=== PATIENT | male | born 1945 | race Caucasian/White ===

== ENCOUNTER → 2016-08-24 | Outpatient (REF) | payer OTHER ==
[2016-08-24 16:00] LABS: MEAN CORPUSCULAR HEMOGLOBIN 32.8 pg (27.0-33.0); MEAN CORPUSCULAR HGB CONC 34.3 g/dl (32.0-36.5); MEAN CORPUSCULAR VOLUME 95.8 fl (80.0-96.0); RED CELL DISTRIBUTION WIDTH 11.7 % (11.5-14.5); WHITE BLOOD COUNT 8.7 K/mm3 (4.0-10.0)
[2016-08-25 09:51] LABS: BLOOD UREA NITROGEN 26 MG/DL (7-18); CREATININE FOR GFR 0.95 MG/DL (0.70-1.30); GLOMERULAR FILTRATION RATE > 60.0 (>49)
== END ==
LOC: M LABDRAW1 15:25
PROVIDERS: ATTEND Physician Assistant
DX: M43.16 Spondylolisthesis, lumbar region (principal)

== ENCOUNTER → 2016-08-25 | Outpatient (CLI) | payer MEDICARE, BC, OTHER ==
--- NOTE | 2016-08-25 20:10 | REPUSA ---
CLINICAL HISTORY: Stenosis versus abscess. TECHNIQUE: MRI of the lumbar spine was performed utilizing multiple sequences in axial and sagittal planes without and with IV contrast material. COMMENTS: There is multilevel dehydration and disc desiccation is seen. At L5-S1, moderate loss of disc space height present. Grade 1 anterolisthesis L5 over S1 measures 6 mm this is due to bilateral spondylolysis. The marrow signals are within normal limits. The normal lordotic curvature of the lumbar spine is well maintain ed. The conus medullaris and cauda equina are within normal limits. Evaluation of individual levels presents the following: At L5-S1, diffuse bulge is seen. There is moderate to severe bilateral foraminal stenosis. Canal is patent. Hypertrophic facet disease contributes. At L4-L5, central herniated disc measures 15 x 3 mm indents the ventral thecal sac with superimposed bulge. Both foramina are mildly narrowed. Canal is patent. Hypertrophic facet disease is seen. At L3-L4, there is no disc herniation or bulge present. Canal and foramina are patent. Hypertrophic facet disease is seen. At L2-L3, central herniated disc measures 5 x 1.5 mm indents the ventral thecal sac. Canal and abelardo haley are patent. L1-L2 level is unremarkable. Post gadolinium sequences demonstrate no evidence of normal enhancement. IMPRESSION: 1. Grade 1 anterolisthesis of L5 over S1 due to bilateral spondylolysis. 2. At L5-S1, diffuse bulge is seen. There is moderate to severe bilateral foraminal stenosis. Hiral l is patent. Hypertrophic facet disease contributes. 3. At L4-L5, central herniated disc measures 15 x 3 mm indents the ventral thecal sac with superimpo sed bulge. Both foramina are mildly narrowed. Canal is patent. Hypertrophic facet disease is seen. 4. At L2-L3, central herniated disc measures 5 x 1.5 mm indents the ventral thecal sac. Canal and f oramina are patent. 5. No evidence of an abscess. Thank you for your kind referral of this patient. We appreciate the opportunity to participate in th is patient's care.
== END ==
LOC: M RAD 17:38
PROVIDERS: ATTEND Physician Assistant
DX: M43.16 Spondylolisthesis, lumbar region (principal); M51.26 Other intervertebral disc displacement, lumbar region
CPT/HCPCS: 72158; A9576

== ENCOUNTER → 2016-09-25 | Outpatient (CLI) | payer MEDICARE, BC, OTHER ==
[~2016-09-25] MED LIST: ATOR40TA PO; ENAL5TAB PO; FENO54TA2 PO; OMEP20CA3 PO; SERT50TA PO
[2016-09-25 11:11] LABS: INR 1.04
[2016-09-25 11:17] LABS: ANION GAP 10 MEQ/L (8-16); BLOOD UREA NITROGEN 23 MG/DL (7-18); CALCIUM LEVEL 9.2 MG/DL (8.8-10.2); CARBON DIOXIDE LEVEL 28 MEQ/L (21-32); CHLORIDE LEVEL 103 MEQ/L (98-107); CREATININE FOR GFR 0.96 MG/DL (0.70-1.30); GLOMERULAR FILTRATION RATE > 60.0 (>49); GLUCOSE, FASTING 122 MG/DL (80-110); POTASSIUM SERUM 4.1 MEQ/L (3.5-5.1); SODIUM LEVEL 141 MEQ/L (136-145)
--- NOTE | 2016-09-25 11:23 | REP ---
Chest two views HISTORY: Preop Comparison: None The lungs are clear. The heart is normal in size. The pulmonary vasculature is normal in appearance. The bony structure is intact. IMPRESSION: No acute disease. Signed by Kash Cordova MD 09/25/2016 11:14 A
--- NOTE | 2016-09-25 18:52 | ECGEPIP ---
Stationary ECG Study [facility] Test Date: 2016-09-25 Pat Name: ELIU TESFAYE Department: Room: - Gender: M Paediatric Surgeon: TORRES : 1945 Requested By: Meño Meadows Order Number: [id number] Reading MD: Sergio Vila Measurements Intervals [place] Rate: 96 P: 9 NE: 149 QRS: -39 QRSD: 86 T: 55 QT: 353 QTc: 448 Interpretive Statements SINUS RHYTHM Left axis deviation Nonspecific T wave abnormality Comparison tracing not on file Electronically Signed On 09-25-2016 18:52:25 EST by Sergio Vila
== END ==
LOC: M ADMPAT 09:42
PROVIDERS: ATTEND Orthopaedic Surgery
DX: Z01.818 Encounter for other preprocedural examination (principal); M43.16 Spondylolisthesis, lumbar region

== ENCOUNTER 2016-10-03 07:35 | Inpatient (IN) | payer MEDICARE, BC, OTHER ==
--- NOTE | 2016-09-27 11:29 | CR ---
DATE OF CONSULTATION: 09/27/2016 PREOPERATIVE EVALUATION AND CONSULTATION CONSULTING PHYSICIAN: Alverto Birmingham MD SURGEON: Meño Reza MD, [facility] PROCEDURE: Lumbar spinal fusion. SITE OF SURGERY: [facility] PROPOSED DATE OF SURGERY: 10/03/2016 CHIEF COMPLAINT: Right-sided low back and leg pain. HISTORY OF PRESENT ILLNESS: A 71-year-old patient of mine who presents today with approximately 1 year of increasing right back and lower extremity pain. The patient has tried a number of modalities, which have not been effective. These included physical therapy exercises, cortisone injections. The patient is now planning for a lumbar spinal fusion. He has had two MRIs of the area, which reportedly show spondylolisthesis at L5-S1. Regarding the patient's perioperative risks, the patient generally does well without any chest pain. He has exerted himself in the past without issues; however, recently, has been limited by his right back and lower extremity pain. He has not had any respiratory concerns. Had a very short and distant smoking history. Has had no lung problems, no asthma, no issues with anesthesia in the past, and his is present. Denies any apneic spells or other problems or issues. He has been compliant with his medication, and his overall health has been good with each of his medical issues controlled. These include hyperlipidemia for which he is on medication, dysthymia well treated with sertraline, hypertension treated with Vasotec, and omeprazole which has suppressed his gastroesophageal reflux disease (GERD). He does take Metrogel and ketoconazole for some rosacea and seborrheic dermatitis, respectively. He also occasionally used Viagra for erectile dysfunction (ED). He has moderated his alcohol use to generally one every night or every other night at this point. Again, it is notable he had a percutaneous transluminal coronary angioplasty (PTCA) two-vessel in 1998. Had followed at [facility] but followed with cardiology and has had no recent issues since then and normal stress test since then. PAST MEDICAL HISTORY: 1. Hyperlipidemia. 2. Hypertension. 3. GERD. 4. Coronary artery disease (CAD) with two-vessel PTCA in 1998. Had followed with cardiology for a number of years without issues or concerns. 5. Chronic low back pain. 6. Dysthymia/anxiety. 7. Rosacea. 8. Seborrheic dermatitis. 9. Aortic sclerosis on prior echocardiogram. 10. ED. PAST SURGICAL HISTORY: 1. Bilateral inguinal hernias. 2. Cataract removal right eye in March 2008. 3. 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 4. Colonoscopy in 2007. ALLERGIES: METOPROLOL caused bradycardia and some dizziness. PENICILLIN caused a mild case of hives. CIPROFLOXACIN caused a mild case of hives. MEDICATION: - aspirin 81 mg by mouth daily (held 1 week prior to surgery) - ketoconazole 2% topically to areas of seborrheic dermatitis of the face - Viagra 100 mg taken about 30 minutes prior to intercourse (will hold prior to surgery) - Lipitor 40 mg daily - Metrogel 1% to affected areas of rosacea twice a day - omeprazole 20 mg daily - Vasotec 5 mg daily - fenofibrate 54 mg by mouth daily (The patient will hold all medications the day of surgery and Vasotec the day prior to surgery, as well.) FAMILY HISTORY: Father of a drowning at a young age. Mother of renal failure and hypertension. SOCIAL HISTORY: The patient lives with his in [place], and he retired from the [employer]. He has two children, Jose R, who works in the emergency department as a social media project manager and daughter, Andra, who lives on [address]. He previously drank a significant amount each evening. However, now, has generally one alcoholic beverage each night. He is a former smoker; quit in 1969 after smoking about seven cigarettes a day since a teenager. REVIEW OF SYSTEMS: As per history of present illness (HPI). Otherwise, ten system review is completely negative. PHYSICAL EXAMINATION: VITAL SIGNS: Blood pressure 130/78, pulse of 82, respiratory rate of 16, weight of 185 pounds, body mass index (BMI) of 31.8. In general, the patient appears well. No acute distress. Nontoxic. Alert and oriented times three. His is here today for the preoperative visit. He is somewhat uncomfortable, staying off his right hip. HEENT: Notes pupils equal, round, and reactive to light and accommodation. Extraocular motions intact. No lesions of lid or conjunctivae. Oral cavity and oropharynx are completely benign. Tympanic membranes are benign bilaterally. NECK: Is supple. No lymphadenopathy or thyromegaly. HEART: Regular rate and rhythm. S1, S2. No murmurs today are appreciated (2/6 systolic murmur appreciated in the past, found to be aortic sclerosis). LUNGS: Clear to auscultation bilaterally. No rales, rhonchi, or wheezes. ABDOMEN: Is soft, nontender, nondistended. Slightly protuberant. EXTREMITIES: No clubbing, cyanosis, or edema. However, he does have some focal changes in his right toe with discomfort and swelling. No sign of infection. NEUROLOGICAL EXAMINATION: Is nonfocal with the exception of his significant lumbar radiculopathy and pain. PREOPERATIVE EVALUATION: Included: A chest x-ray with no acute disease. An electrocardiogram (EKG), which showed normal sinus rhythm with some left axis deviation, nonspecific T wave abnormalities, but otherwise no change from 04/13/2015 EKG, per report. 2015 echocardiogram showed a normal ejection fraction (EF) and some moderate aortic valve sclerosis. LABORATORIES: Completed at [facility] show: Normal hemoglobin 14.8. Normal PT/INR. Normal BMP. ASSESSMENT AND PLAN: 1. Preoperative evaluation and consultation. At this point in time, although the patient had a distant history of coronary disease, his EKG has not changed, and he has no cardiac symptoms whatsoever. He will be holding his aspirin for surgery. He will be monitored closely. Although I do not believe there is significant cardiac issues present based on the information available, I suspect that he will be monitored closely. He has had no pulmonary or anesthesia issues in the past; and per history, he does not have a significant risk for obstructive sleep apnea (IBAN). He appears optimized for surgical intervention. If he has any new symptoms, questions, or concerns prior to surgery, he will be sure to let me know. 2. Right-sided lumbar radiculopathy. The patient looks forward to surgery. He has attempted a number of conservative measures but will need surgical intervention to improve his symptoms of pain and inability to function. 3. Hyperlipidemia. Good control on present medication. Will continue perioperatively. 4. Hypertension. Has been well controlled on present medication. Will need to be continued and monitored. 5. Gastroesophageal reflux disease. Has done well on omeprazole daily. Will continue. 6. Coronary artery disease. Again, has been controlled for a number of years without new issues or concerns but again I expect will be monitored closely perioperatively. 7. Anxiety. Good results on Zoloft. Will continue. 8. Rosacea. Treated with Metrogel with good results. 9. Seborrheic dermatitis. Good results on ketoconazole cream. 10. Erectile dysfunction. The patient is using Viagra as needed with good results and not having any chest pain or other concerns. 11. History of aortic sclerosis. No other abnormalities on echocardiogram. 12. Ongoing care. Again, the patient is optimized for surgical intervention. He will let me know if he has any new symptoms or concerns prior to surgery, but otherwise, I wish him well for his surgery; and if I can be of any other assistance, please let me know. I will otherwise see him for his scheduled followup. SARA
--- NOTE | 2016-09-28 13:53 | HPE ---
DATE OF ADMISSION: 10/03/2016 CHIEF COMPLAINT: Back pain, pain down his right leg. ATTENDING PHYSICIAN: Dr. Reza. HISTORY: This is a pleasant 71-year-old male patient with progressively worsening back pain and pain down his right leg. He has failed to improve with conservative management to include gabapentin, anti-inflammatories, pain medications, physical therapy, and epidural steroid injections. He continues have symptoms with activities of daily living. He has elected for surgery for his continued symptoms. He has consented for a right unilateral laminectomy L4, L5, S1, as well as a bilateral posterior fusion with pedicle screws and iliac crest spanning L4, L5 and S1. Medical optimization pending. MRI of his lumbar spine notable for degenerative disc with a pars defect at L5-S1 bilaterally. There is also a degenerative disc at L4-5, mildly stenotic at 4-5 and severe foraminal stenosis mainly to the right at L5-S1 and moderate to the left at L5-S1. X-rays of his lumbar spine were notable for a non dynamic listhesis at L5-S1. There are degenerative changes throughout the lumbar spine, most significantly at L4-5 and L5-S1. ALLERGIES: - PENICILLIN - CIPRO (both of which cause him hives) It should be noted he has taken cephalexin before without difficulties. CURRENT MEDICATIONS (include): - Percocet as needed (p.r.n.) for pain - atorvastatin 40 mg 1 tablet once per day - Prilosec 20 mg 1 tablet once day - Sertraline 50 mg 1 tablet once per day - Fenofibrate 54 mg 1 tablet once per day - enalapril 5 mg 1 tablet once per day - intermittent regular Tylenol as well He has been counseled not to take NSAIDs or aspirin 5 days prior to surgery. MEDICAL HISTORY (includes): 1. Hypertension. 2. Elevated cholesterol. 3. Spondylolisthesis of the lumbar spine, lumbar degenerative disc disease, lumbar spinal stenosis, and pain radiating down to his right lower extremity. PAST SURGICAL HISTORY: Hernia repair. Otherwise unremarkable. FAMILY HISTORY: Noncontributory. SOCIAL HISTORY: He does not smoke. He occasionally consumes alcohol. REVIEW OF SYSTEMS: Denies fever or chills. Denies chest pain, shortness breath or cough. Denies difficulty breathing. Denies abdominal pain. Denies nausea or vomiting. Denies chest pain, shortness breath or cough. Denies recent upper respiratory infection (URI) or urinary tract infection (UTI) symptoms. He has persistent back pain and pain down his right leg. Denies abdominal pain. Denies nausea or vomiting. PHYSICAL EXAMINATION: Today, reveals a well-nourished, well-developed, alert male patient. He walks with a limping gait and favors his right side. He does use a cane for ambulation. Straight leg raise testing is irritable on the right, negative on the left. There are no step-offs in the lumbar spine. There is decreased light touch on the right lower extremity, mainly around the great toe. The skin is intact around the back. No erythema, edema or ecchymosis. Deep tendon reflexes are absent at the right ankle, trace at the left ankle, and 1 at both knees. Neck is supple without adenopathy or jugular venous distention (JVD). Lungs are clear to auscultation, without rales or wheeze. Heart regular rate and rhythm. Abdomen: Bowel sounds are present. Current Vital Signs: Weight 184 pounds, height 5 feet 4 inches, temperature 99.5, blood pressure 134/78, pulse 80, and respirations 16. IMPRESSION: 1. Symptomatic lumbar degenerative disc disease, lateral foraminal stenosis and spondylolisthesis at L5-S1 with degenerative changes at L4, L5 and S1, as well as, pain radiating to his right lower extremity. PLAN: He is consented for a right unilateral laminectomy spanning L4, L5 and S1, as well as, bilateral posterior fusion with pedicle screws and iliac crest L4, L5 and S1. It also should be noted that his laboratory data is with hemoglobin 14.8. PT is 13.7, INR 1.02, glucose 122, BUN 23, creatinine 0.96, sodium 141, and potassium 4.1. His nasal culture was positive for Staphylococcus aureus, he was treated per the protocol. No need to change the antibiotic as the Staph aureus is susceptible to cephalosporins
[~2016-10-03] VITALS: Ht 165.1 cm; Wt 84.8 kg
[~2016-10-03 07:35] MED LIST changes: +**UNRESOLVED NON-FORMULARY MED ORDER XX SCH
[2016-10-03] MEDS ORDERED: D5W/LR 1,000 ML IV SCH (07:45)
[2016-10-03] MEDS ORDERED: GABAPENTIN 300 MG CAP PO ONE (08:00)
[2016-10-03] MEDS ORDERED: LR 1,000 ML IV SCH ×2 (08:00→17:30)
[2016-10-03] MEDS ORDERED: PERCOCET 5MG/325MG TAB PO ONE (08:00)
[2016-10-03] MEDS ORDERED: MIDAZOLAM INJ 2 MG/2 ML VIAL (J2250) As Ordered ONE (09:02)
[2016-10-03] MEDS ORDERED: fentaNYL 250 MCG/5 ML INJECTION (J3010) As Ordered ONE (09:03)
[2016-10-03] MEDS ORDERED: LIDOCAINE 2% INJ 100 MG/5 ML SDV (FOR ANES.) As Ordered ONE (09:04)
[2016-10-03] MEDS ORDERED: PROPOFOL 200 MG/20 ML VIAL As Ordered ONE ×2 (09:05→09:06)
[2016-10-03] MEDS ORDERED: ROCURONIUM BROMIDE 50 MG/5 ML VIAL As Ordered ONE (09:07)
[2016-10-03] MEDS ORDERED: VANCOMYCIN HCL 500 MG/10 ML VIAL (J3370) As Ordered ONE (09:43)
[2016-10-03] MEDS ORDERED: BUPIVACAINE/EPIN 0.25% 30 ML VIAL As Ordered ONE (09:43)
[2016-10-03] MEDS ORDERED: THROMBIN SOLN 20,000 UNITS KIT As Ordered ONE (09:43)
[2016-10-03] MEDS ORDERED: BACITRACIN PWD 50,000 UNITS VIAL As Ordered ONE (09:44)
[2016-10-03] MEDS ORDERED: VANCOMYCIN 1000 MG/20 ML VIAL (J3370) As Ordered ONE (11:13)
[2016-10-03] MEDS ORDERED: VANCOMYCIN HCL 1,000 MG, VIAL MATE ADAPTER 1 EACH in D5W 250 ML IV ONE (11:30)
[2016-10-03] MEDS ORDERED: diphenhydrAMINE INJ 50MG/ML VIAL (J1200) As Ordered ONE (12:00)
[2016-10-03] MEDS ORDERED: METOCLOPRAMIDE INJ 10MG/2ML VIAL (J2765) As Ordered ONE (12:02)
[2016-10-03] MEDS ORDERED: dexameTHASONE 4 MG/ML 1ML VIAL (J1100) As Ordered ONE (12:02)
[2016-10-03] MEDS ORDERED: ePHEDrine SULFATE 25 MG/5 ML(5MG/ML) SYRINGE As Ordered ONE (12:11)
[2016-10-03] MEDS ORDERED: HYDROmorphone HCL 2 MG/ML 1ML VIAL (J1170) As Ordered ONE (13:34)
[2016-10-03] MEDS ORDERED: PHENYLephrine HCL 500 MCG/5 ML (100MCG/ML) SYRINGE (J2370) As Ordered ONE (13:44)
[2016-10-03] MEDS ORDERED: GLYCOPYRROLATE INJ 0.2 MG/ML 2 ML VIAL As Ordered ONE (14:27)
[2016-10-03] MEDS ORDERED: NEOSTIGMINE 1MG/ML 5 ML SYRINGE (J2710) As Ordered ONE (14:29)
[2016-10-03] MEDS ORDERED: ONDANSETRON 4MG/2ML VIAL (J2405) As Ordered ONE (14:29)
[2016-10-03] MEDS ORDERED: tiZANidine 4 MG TAB PO PRN (17:00)
[2016-10-03] MEDS ORDERED: PERCOCET 5MG/325MG TAB PO PRN (17:00)
[2016-10-03] MEDS: PERCOCET 5MG/325MG TAB PO PRN ×3 (17:08→20:36)
[2016-10-03] MEDS ORDERED: METOCLOPRAMIDE INJ 10MG/2ML VIAL (J2765) IV PRN (17:30)
[2016-10-03] MEDS ORDERED: fentaNYL 100 MCG/2 ML INJECTION (J3010) IV PRN (17:30)
[2016-10-03] MEDS ORDERED: ONDANSETRON 4MG/2ML VIAL (J2405) IV PRN (17:30)
[2016-10-03] MEDS: MORPHINE 2 MG/ML 1ML SYRINGE IV PRN ×2 (17:33→17:46)
--- NOTE | 2016-10-03 17:38 | REP ---
Partial lumbar spine series: Four views: History: Intraoperative films. Lumbar spondylolisthesis. 2 minutes 4 seconds of fluoroscopy time is reported. Findings: Two last minute hold fluoroscopic spot films and two portable cross-table lateral radiographs are presented. The portable radiographs are time stamped 12:46 and 12:57 p.m. The 12:46 p.m. film shows an intraoperative probe at the dorsal aspect of the spinal canal at the level of the L3-4 disc. The 12:57 p.m. probe demonstrates an intraoperative probe at the dorsal aspect of the canal at the L5-S1 and another at the dorsal aspect of the canal at L4-5. The fluoroscopic last minute hold spot radiographs document transpedicular screw placement bilaterally at L4, L5, and S1 with interconnecting fusion rods. A grade 1 L5-S1 spondylolisthesis is seen. Signed by Amrit Crockett MD 10/04/2016 12:23 P
[2016-10-03] MEDS ORDERED: HYDROmorphone HCL 1 MG/ML SYRINGE (J1170) IV PRN ×2 (18:00)
[2016-10-03 18:15] VITALS: BP 132/80
[2016-10-03 18:45] VITALS: BP 128/77
[2016-10-03] MEDS: LR 1,000 ML IV SCH (19:00)
[2016-10-03 19:45] VITALS: BP 125/80
--- NOTE | 2016-10-03 20:24 | IPN ---
DATE: 10/03/2016 REASON FOR CONSULTATION: Medical management and consult for Dr. Reza. SUBJECTIVE: The patient tells me he is feeling great. He has no complaints. He is not in any significant pain. He tells me that everything has been explained to him well. Eh denies chest pain, shortness of breath, palpitations, lightheadedness, or dizziness. OBJECTIVE: VITAL SIGNS: Temperature 99.1, pulse 109, respiratory rate 18, blood pressure (BP) 128/77, oxygen saturation 95% on 2 liters. GENERAL: He is a very pleasant, obese male, lying in bed at a 30-degree angle watching television in no distress. He is accompanied by his . HEENT: He is wearing glasses. He has moist mucous membranes. Cranial nerves II-XII are grossly intact. No elevation in central venous pressure (CVP). CARDIOVASCULAR: S1, S2. He is not tachycardic on my exam. RESPIRATORY: Clear. ABDOMEN: Obese. EXTREMITIES: No clubbing, cyanosis, or edema. No laboratory studies. ASSESSMENT AND PLAN: This is a 71-year-old man status post lumbar surgery with Dr. Reza. 1. Lumbar surgery. As per Dr. Reza. Deep vein thrombosis (DVT), physical therapy (PT), and pain control all as per orthopedics. 2. Hypertension. The patient is continued on his Vasotec with holding parameters. 3. Dyslipidemia. He is on Lipitor and fenofibrate. 4. Rosacea. He is on Metrogel as needed. 5. Gastroesophageal reflux disease (GERD). He is on omeprazole. 6. Depression. He is on Zoloft. 7. Coronary artery disease. The patient is on aspirin, statin, curiously no beta adalberto. Will defer to his outpatient providers. We will continue to follow along with this patient with you. Please call with any specific questions. Thank you for involving us in this care. His home medications have already been ordered and continued by the primary service.
[2016-10-03] MEDS: ASCORBIC ACID 500 MG TAB PO SCH (20:35)
[2016-10-03] MEDS: ENALAPRIL MALEATE 5 MG TAB PO SCH (20:35)
[2016-10-03] MEDS: DOCUSATE SODIUM 100 MG CAP PO SCH (20:35)
[2016-10-03] MEDS: GABAPENTIN 400 MG CAP PO SCH (20:35)
[2016-10-03 20:45] VITALS: BP 132/68
[2016-10-03 21:45] VITALS: BP 128/65
[2016-10-03 22:45] VITALS: BP 126/68
[2016-10-03] MEDS: VANCOMYCIN HCL 1,000 MG, VIAL MATE ADAPTER 1 EACH in D5W 250 ML IV SCH (23:24)
[2016-10-04 02:45] VITALS: BP 130/65
[2016-10-04] MEDS: PERCOCET 5MG/325MG TAB PO PRN ×4 (04:43→20:08)
[2016-10-04 06:00] VITALS: BP 128/76
[2016-10-04] MEDS ORDERED: FENOFIBRATE 54 MG PO SCH (09:00)
[2016-10-04] MEDS: ASPIRIN 81 MG CHEW TABLET PO SCH (09:38)
[2016-10-04] MEDS: ASCORBIC ACID 500 MG TAB PO SCH ×2 (09:38→20:06)
[2016-10-04] MEDS: DOCUSATE SODIUM 100 MG CAP PO SCH ×2 (09:38→20:08)
[2016-10-04] MEDS: ATORVASTATIN 20 MG TAB PO SCH (09:38)
[2016-10-04] MEDS: GABAPENTIN 400 MG CAP PO SCH ×2 (09:38→20:07)
[2016-10-04] MEDS: ENALAPRIL MALEATE 5 MG TAB PO SCH ×2 (09:38→20:07)
[2016-10-04] MEDS: OMEPRAZOLE 20 MG CAP PO SCH (09:39)
[2016-10-04] MEDS: SERTRALINE HCL 50 MG TAB PO SCH (09:39)
[2016-10-04] MEDS: LR 1,000 ML IV SCH ×2 (09:51→23:26)
[2016-10-04 10:00] VITALS: BP 126/65
[2016-10-04] MEDS ORDERED: MAG SULF 1GM/100ML (MAG RUN) 1 GM in APPROPRIATE DILUENT 1 EA IV ONE (11:30)
[2016-10-04] MEDS: VANCOMYCIN HCL 1,000 MG, VIAL MATE ADAPTER 1 EACH in D5W 250 ML IV SCH (12:26)
[2016-10-04 12:42] LABS: MEAN CORPUSCULAR HEMOGLOBIN 32.9 pg (27.0-33.0); MEAN CORPUSCULAR VOLUME 96.6 fl (80.0-96.0); RED CELL DISTRIBUTION WIDTH 12.8 % (11.5-14.5); WHITE BLOOD COUNT 7.5 K/mm3 (4.0-10.0)
[2016-10-04 12:43] LABS: ANION GAP 11 MEQ/L (8-16); BLOOD UREA NITROGEN 15 MG/DL (7-18); CALCIUM LEVEL 7.9 MG/DL (8.8-10.2); CARBON DIOXIDE LEVEL 28 MEQ/L (21-32); CHLORIDE LEVEL 101 MEQ/L (98-107); CREATININE FOR GFR 0.97 MG/DL (0.70-1.30); GLOMERULAR FILTRATION RATE > 60.0 (>49); GLUCOSE, FASTING 134 MG/DL (80-110); POTASSIUM SERUM 3.7 MEQ/L (3.5-5.1); SODIUM LEVEL 140 MEQ/L (136-145)
--- NOTE | 2016-10-04 13:01 | REP ---
Lumbar spine series: Three views. Comparison radiographs are from August 31, 2005. History: Reevaluate hardware. Status post laminectomy and fusion October 03, 2016. Comparison with intraoperative films from 10/03/2016. Findings: Transpedicular screws are seen bilaterally at L4, L5, and S1 with interconnecting rods. Alignment is unchanged. Signed by Amrit Crockett MD 10/10/2016 01:10 P
--- NOTE | 2016-10-04 13:10 | IPNPDOC ---
Text Note Date of Service The patient was seen on 10/04/16. NOTE Subjective: Patient states he feels well. Has been ambulating today. Objective: Vitals: (see below) General: No acute distress, laying comfortably in bed. HEENT: Moist mucous membranes. Neck: No JVD or lymphadenopathy Cardiac: RRR, No murmurs Pulm: Diminished breath sounds at the bases bilaterally. No wheezing, rhonchi Abd: NT/ND + BS Ext: No edema or cyanosis. Distal pulses intact. Back- incision site clean and dry. No bleeding or significant swelling noted. Labs (see below) Images: Assessment/Plan 1. Postop day #1 status post laminectomy, management per orthopedics 2. Hypertension- controlled continue Vasotec 3. Hyperlipidemia- continue statin 4. Rosacea- on MetroGel as needed 5. GERD- on PPI 6. History of CAD- on aspirin and statin. Will need close follow-up with his primary care physician, and the cardiology referral outpatient. Will need to have beta adalberto and addressed outpatient. 7. Hypomagnesemia- replaced DVT prophy: Per orthopedics VS,Justin, I+O VS, Justin, I+O Laboratory Tests 10/04/16 06:21 10/04/16 11:50 Calcium Level 7.9 L, Red Blood Count 3.25 L, Mean Corpuscular Volume 96.6 H, Mean Corpuscular Hemoglobin 32.9, Mean Corpuscular Hemoglobin Concent 34.0, Red Cell Distribution Width 12.8 Vital Signs Date Time Temp Pulse Resp B/P Pulse Ox O2 Delivery O2 Flow Rate FiO2 10/04/16 10:16 18 10/04/16 09:38 128/76 10/04/16 08:00 Room Air 10/04/16 06:00 96.7 91 96 2.0 I&O- Last 24 Hours up to 6 AM 10/04/16 06:00 Intake Total 3655 ml Output Total 1000 ml Balance 2655 ml FRANCE BLANCAS MD Oct 04, 2016 13:10
[2016-10-04 14:00] VITALS: BP 114/63
[2016-10-04 22:00] VITALS: BP 106/62
[2016-10-05] MEDS: PERCOCET 5MG/325MG TAB PO PRN ×3 (01:50→14:38)
[2016-10-05 06:00] VITALS: BP 106/56
--- NOTE | 2016-10-05 06:56 | RO ---
DATE OF PROCEDURE: 10/03/2016 PREOPERATIVE DIAGNOSIS: Right lower extremity neurogenic claudication, spondylolisthesis L5-S1 and lumbar spondylosis L4-5 and L5-S1. POSTOPERATIVE DIAGNOSIS: Right lower extremity neurogenic claudication, spondylolisthesis L5-S1 and lumbar spondylosis L4-5 and L5-S1. PROCEDURE: Right unilateral laminectomy L4-5, S1 with posterior fusion L4-5 and posterior fusion L5-S1, posterior segmental instrumentation L4-5, S1, harvest and placement of right iliac crest morselized autograft for spine surgery, harvesting placement of local autograft for spine surgery, use of morselized allograft for spine surgery. SURGEON: Meño Reza MD OVERLAY OPERATOR: REYNALDO Burris ANESTHESIA: General. Estimated blood loss was 350 mL, replaced with crystalloid. No complications. Components used include the K2M [place] pedicle screw system and 10 mL of demineralized bone matrix putty and 15 mL cancellous allograft croutons. INDICATIONS: Intractable discomfort radiating down the right lower extremity, spondylolisthesis L5-S1, spondylosis L4-5 and L5-S1, left recess stenosis at L4- 5 and foraminal stenosis at L5-S1. Consent reviewed in detail with the patient, including aakash discussion of the procedure proposed, alternatives including doing nothing, more physical therapy, risks including not limited to pain, failure, infection, need for more surgery, bleeding blood loss, nerve injury, infection or some other problem. The patient agreed to proceed with surgery. OPERATIVE COURSE: Identified in the holding area. Site side verified. Brought to the operating room. General endotracheal anesthesia was administered and he was positioned on the Bear frame in the usual fashion for exposure of the lumbar spine in the prone position. The incision is a posterior incision and it is based on bony landmarks, the iliac crest which was marked. He was sterilely prepped and draped in usual fashion and once I and the mechanical applications engineer were comfortable with the patient's positioning we began the operative procedure. Next, I stood initially on the patient's right side but Mr. Hartley and I switched sides through de leon portions of the procedure to allow decompression and pedicle screw placement. Next, the incision was infiltrated with 0.25% Marcaine with epinephrine and made with a #10 blade knife developed down through skin and subcuticular tissues to the posterior lumbar fascia. Posterior lumbar fascia was reflected off the spinous processes of S1, L5 and L4 and out over the lamina of L5 and L4. Drill was utilized to drill the posterior lamina of L4, L5 and S1 and probes were placed in the lamina of L5 and L4. A cross-table lateral x-ray was taken to verify our levels. Next, once this was accomplished, we continued dissection over the transverse process of L4, L5 and towards the L5-S1 facet and sacral ala area. This was accomplished with Mr. Hartley on Fanny retractors. Next, on the contralateral side, we also dissected the paraspinal muscles out over the facet complexes and transverse processes of L4, L5 and the top of the sacrum. Next, once this was accomplished, Shadow-Line retractor was placed. Leksell's were utilized to remove the right facet complex and posterior lamina of L5 as well as posterior lamina of L5 on the left side, which was retained for bone graft. Next, once this was accomplished, my loupe magnification and headlamp were removed and the operating microscope was brought in for additional portions of the procedure. Mr. Hartley looked through oculars on the patient's left, I on the right and I utilized the high-speed bur to implement a right unilateral laminectomy of L5, L4 and S1. This continued superiorly through the bare area of L4, medially through the unilateral aspect of the L4-5 facet complex, the pars defect in the S1 level through the bare area of S1. Next, curved curettes and Kerrison's were utilized to decompress the lateral recess of L4-5 and L5-S1. There was significant subarticular stenosis and stenosis of the pars defect and this was removed using the high-speed bur, the curved curette and the Kerrison's. The exiting L5 nerve root was directly visualized and appreciated be decompressed. The traversing S1 nerve root was directly visualized and appreciated to be decompressed in the lateral recess. Next, once the laminectomy was accomplished, we irrigated. At this point, the operating microscope was moved back from the operative field. I switched to the loupe and headlamp and we re-gowned, including gowning with lead. My loupe magnification headlamp were utilized. I stood on the patient's left side at this point, and we obtained iliac crest bone graft through a separate fascial incision. I packed the crest donor site with Gelfoam after irrigation and closed with interrupted stitch. Next, pedicle screw placement. Fluoroscope was utilized at this stage. The fluoroscope was brought in, sterilely draped and utilized to observe the pedicles in AP plane. Placement of the L4 pedicle screw was started with the high-speed bur by drilling mammillary process at the lateral aspect of the pedicle on the AP. Then, we switched to the lateral and the pedicle finder was utilized to move it through the pedicle into the vertebral bodies visualized fluoroscopically. I verified placement with a ball-tip probe, followed by tapping with a 5.5 tap, followed by palpation with the ball-tipped probe verifying pedicle integrity and anterior bone. Next, we measured off the ball-tipped guide for a 6.5 40 mm screw on the right and then I placed a 40 mm 06/05 screw on the right at L4. At L5, the pedicle was approached in a similar fashion. The pedicle was directly palpated. The pedicle opening was drilled with the high-speed drill, followed by placement of the pedicle finder, followed by the ball-tipped guide, followed by the 5.5 tap. The pedicle of L5 was sclerotic. I utilized the ball-tipped guide again to verify pedicle integrity and anterior bone tissue and measured for a size 45 screw. I placed a 40 mm screw on the right at L5 at the L5 pedicle. Next, the S1 pedicle was approached in a similar fashion however, at S1 on the right side. I tapped with a 7.5 tap, again utilized ball-tipped guidewire for pedicle verification and measurement for a 35 mm screw, which was placed. I placed a 7.5 35 mm screw at S1. Next, connecting chandana was placed. The 50 mm connecting chandana was placed between the pedicle screw heads and end caps were placed at L5 and S1. Final end cap was placed at L5 and this reduced the spondylolisthesis approximately 2 or 3 mm. Next, counter torque was device was utilized to lock the screws. Next, Mr. Hartley utilized the Fanny retractor to retract and I placed iliac crest bone graft over the decorticated transverse processes of L4, L5 and the proximal sacrum, followed by placement of local graft and donor graft. Next, vancomycin crystals were placed over the pedicle screw heads 1.5 gram. Next, prior to placement of this bone graft, I did irrigate. Next, attention was turned to the patient's contralateral side, the left side pedicle screws and these were placed in similar fashion for the left-sided pedicle screws. I stood on the right side, Mr. Hartley on the left side. We utilized Fanny retractors to help with exposure. I placed the screws using fluoroscopic visualization, the ball-tipped guidewire for verification of pedicle integrity and anterior bone with placement of 40 mm screw on the left at L4, 45 on the left and L5 35 x 75 screw was placed at S1 on the patient's left side. Connecting chandana was installed, again end caps placed at L4 and S1, followed by use of a persuader to place the end cap at the L5 pedicle, which reduced an additional 3 mm of the spondylolisthesis. Next, caps were locked using the counter torque device. Mr. Hartley retracted with Fanny and I placed bone graft over the decorticated proximal sacrum L5 transverse process and L4 transverse process on the patient's left. Next, additional morselized allograft was placed over the top of the iliac crest along with the local graft, which had been harvested. Next, the remaining local graft was placed with allograft and demineralized bone matrix putty in the interlaminar and interfacet space on the patient's left side. Next, irrigation had also been accomplished prior to graft placement and I placed the vancomycin crystals again over the pedicle screw heads, about 300 or 400 mg. Next, final fluoroscopic images were obtained and the fluoroscope was removed from the operative field at that point. These included AP films. Next, retractors were removed. I inspected the laminectomy defect on the patient's right. All counts were correct. Posterior lumbar fascia was reapproximated with interrupted stitch, the dermis with interrupted stitch and dressing was placed on skin. Next, patient was then moved to the hospital bed, extubated and moved to the recovery room in good condition. Patient was noted to move all four extremities in the recovery room. Mr. Hartley was present and participated in the entirety of the case in the capacity of banking assistant. I was present anticipating in all de leon aspects of this case. Next, for further details please refer to the medical record. MTDD
[2016-10-05] MEDS: LR 1,000 ML IV SCH (07:54)
[2016-10-05] MEDS ORDERED: MAGNESIUM CITRATE 300 ML BTL PO ONE ×2 (08:00→10:00)
[2016-10-05] MEDS: OMEPRAZOLE 20 MG CAP PO SCH (08:29)
[2016-10-05] MEDS: ATORVASTATIN 20 MG TAB PO SCH (08:29)
[2016-10-05] MEDS: SERTRALINE HCL 50 MG TAB PO SCH (08:29)
[2016-10-05] MEDS: ASCORBIC ACID 500 MG TAB PO SCH (08:29)
[2016-10-05] MEDS: ASPIRIN 81 MG CHEW TABLET PO SCH (08:29)
[2016-10-05] MEDS: DOCUSATE SODIUM 100 MG CAP PO SCH (08:29)
[2016-10-05] MEDS: GABAPENTIN 400 MG CAP PO SCH (08:30)
[2016-10-05 08:31] VITALS: BP 105/62
[2016-10-05 08:31] LABS: MEAN CORPUSCULAR HGB CONC 34.2 g/dl (32.0-36.5); MEAN CORPUSCULAR VOLUME 96.6 fl (80.0-96.0); RED CELL DISTRIBUTION WIDTH 12.5 % (11.5-14.5); WHITE BLOOD COUNT 7.8 K/mm3 (4.0-10.0)
[2016-10-05 08:59] LABS: ANION GAP 9 MEQ/L (8-16); BLOOD UREA NITROGEN 11 MG/DL (7-18); CALCIUM LEVEL 7.7 MG/DL (8.8-10.2); CARBON DIOXIDE LEVEL 29 MEQ/L (21-32); CHLORIDE LEVEL 104 MEQ/L (98-107); CREATININE FOR GFR 0.93 MG/DL (0.70-1.30); GLOMERULAR FILTRATION RATE > 60.0 (>49); GLUCOSE, FASTING 109 MG/DL (80-110); MAGNESIUM LEVEL 1.8 MG/DL (1.8-2.4); POTASSIUM SERUM 3.6 MEQ/L (3.5-5.1); SODIUM LEVEL 142 MEQ/L (136-145)
[2016-10-05] MEDS ORDERED: ENALAPRIL MALEATE 2.5 MG TAB PO SCH (09:00)
[2016-10-05] MEDS ORDERED: FENOFIBRATE 54 MG PO SCH (09:00)
--- NOTE | 2016-10-05 13:38 | IPNPDOC ---
Text Note Date of Service The patient was seen on 10/05/16. NOTE Subjective: Patient states his back pain was worse today. No radiculopathy. [place] tired when he was sitting in the chair. Passing gas. No BM yet. Objective: Vitals: (see below) General: No acute distress, laying comfortably in bed. HEENT: Moist mucous membranes. Neck: No JVD or lymphadenopathy Cardiac: RRR, No murmurs Pulm: Diminished breath sounds at the bases bilaterally. No wheezing, rhonchi Abd: NT/ND + BS Ext: No edema or cyanosis. Distal pulses intact. Back- incision site clean and dry. No bleeding or significant swelling noted. Labs (see below) Images: Assessment/Plan 1. Postop day #2 status post laminectomy, management per orthopedics 2. Hypertension- controlled continue Vasotec 3. Hyperlipidemia- continue statin 4. Rosacea- on MetroGel as needed 5. GERD- on PPI 6. History of CAD- on aspirin and statin. Will need close follow-up with his primary care physician, and the cardiology referral outpatient. Will need to have beta adalberto and addressed outpatient. 7. Hypomagnesemia- replaced DVT prophy: Per orthopedics Will be working with PT. Using incentive spirometer. VS,Fishbone, I+O VS, Fishbone, I+O Laboratory Tests 10/05/16 08:13 Calcium Level 7.7 L, Red Blood Count 3.08 L, Mean Corpuscular Volume 96.6 H, Mean Corpuscular Hemoglobin 33.0, Mean Corpuscular Hemoglobin Concent 34.2, Red Cell Distribution Width 12.5 Vital Signs Date Time Temp Pulse Resp B/P Pulse Ox O2 Delivery O2 Flow Rate FiO2 10/05/16 08:31 105/62 10/05/16 08:31 18 10/05/16 07:59 Room Air 10/05/16 06:00 99.5 93 92 10/04/16 06:00 2.0 I&O- Last 24 Hours up to 6 AM 10/05/16 06:00 Intake Total 2640 ml Output Total 2275 ml Balance 365 ml FRANCE BLANCAS MD Oct 05, 2016 13:38
== END 2016-10-05 15:35 | disposition home or self-care (01) | DRG 460 ==
LOC: M OR 07:35 → M MS5PR 18:05
PROVIDERS: ADMIT Orthopaedic Surgery; ATTEND Orthopaedic Surgery
PROC: 0SG10K1 Fusion of 2 or more Lumbar Vertebral Joints with Nonautologous Tissue Substitute, Posterior Approach, Posterior Column, Open Approach (ICD-10-PCS; principal; 2016-10-03 09:00)
DX: M43.06 Spondylolysis, lumbar region (principal); E78.5 Hyperlipidemia, unspecified; F34.1 Dysthymic disorder; I10 Essential (primary) hypertension; E83.42 Hypomagnesemia; I25.10 Atherosclerotic heart disease of native coronary artery without angina pectoris; K21.9 Gastro-esophageal reflux disease without esophagitis; L21.9 Seborrheic dermatitis, unspecified; R26.9 Unspecified abnormalities of gait and mobility; L71.9 Rosacea, unspecified; N52.9 Male erectile dysfunction, unspecified; Z79.82 Long term (current) use of aspirin; Z95.5 Presence of coronary angioplasty implant and graft; Z79.899 Other long term (current) drug therapy; Z88.0 Allergy status to penicillin; Z88.1 Allergy status to other antibiotic agents; Z87.891 Personal history of nicotine dependence

== ENCOUNTER 2020-04-01 19:07 | Inpatient (IN) | payer MEDICARE, BC, OTHER ==
[~2020-04-01] VITALS: Ht 162.6 cm; Wt 76.2 kg
[~2020-04-01 19:07] MED LIST changes: -**UNRESOLVED NON-FORMULARY MED ORDER XX SCH; -ATOR40TA PO; +ATOR40TA75 PO; +ENAL5TA PO; -ENAL5TAB PO; +OMEP1CAP73 PO; -OMEP20CA3 PO; +SERT-141 PO; -SERT50TA PO
[2020-04-01] MEDS ORDERED: MELO15TA28 PO (19:20)
[2020-04-01] MEDS ORDERED: diazePAM 10MG/2ML SYRINGE (J3360 PER 5MG) IV ONE (19:45)
[2020-04-01] MEDS ORDERED: ONDANSETRON 4MG/2ML VIAL IV ONE (19:45)
[2020-04-01] MEDS: MORPHINE 4 MG/ML 1ML VIAL/SYRINGE (J2270) IV PRN ×2 (19:49→20:44)
[2020-04-01 19:52] LABS: HEMATOCRIT 39.6 % (42.0-52.0); MEAN CORPUSCULAR HEMOGLOBIN 33.3 pg (27.0-33.0); MEAN CORPUSCULAR HGB CONC 35.4 g/dl (32.0-36.5); MEAN CORPUSCULAR VOLUME 94.3 fl (80.0-96.0); PLATELET COUNT, AUTOMATED 282 10^3/uL (150-450); WHITE BLOOD COUNT 6.3 10^3/uL (4.0-10.0)
[2020-04-01 20:11] LABS: BLOOD UREA NITROGEN 19 MG/DL (7-18); CALCIUM LEVEL 9.2 MG/DL (8.8-10.2); CARBON DIOXIDE LEVEL 21 MEQ/L (21-32); CHLORIDE LEVEL 107 MEQ/L (98-107); GLOMERULAR FILTRATION RATE > 60.0 (>42); GLUCOSE, FASTING 100 MG/DL (70-100); POTASSIUM SERUM 3.5 MEQ/L (3.5-5.1); SODIUM LEVEL 140 MEQ/L (136-145)
[2020-04-01] MEDS ORDERED: MORPHINE 4 MG/ML 1ML VIAL/SYRINGE (J2270) IV ONE (21:00)
--- NOTE | 2020-04-01 21:55 | REPVR ---
PROCEDURE INFORMATION: Exam: MR Left Lower Extremity Joint Without Contrast; Hip Exam date and time: 04/01/2020 9:31 PM Age: 75 years old Clinical indication: Pain and abnormal findings; Abnormal imaging study; Hip; Left; Patient HX: Avn found on xray at another facility no access to images or report; Additional info: Suspected avn on xray TECHNIQUE: Imaging protocol: MR of the Left lower extremity joint without contrast. Exam focused on the hip. COMPARISON: No relevant prior studies available. FINDINGS: Bones and cartilage: Serpiginous areas of T2 hyperintensity are identified involving the left femoral head, consistent with avascular necrosis. No dislocation of the hips. Joint spaces: Small right hip joint effusion. No significant effusion involving the left hip. Narrowing of the bilateral hip joint spaces superiorly, consistent with arthropathy. Labrum: Mild heterogeneous signal intensity of the superior aspect of the labrum, which is likely degenerative. Evaluation of the labrum is limited by motion artifact TENDONS: Tendons of iliopsoas group: Mild edema adjacent to the iliopsoas tendon, consistent with tendinopathy. Minimal fluid is also seen adjacent to this tendon. No evidence of tear. Tendons of medial compartment of thigh: No evidence of tear. Tendons of lateral rotators of hip: No evidence of tear. Tendons of gluteal group: No evidence of tear. Muscles: No visualized acute abnormality. Soft tissues: Motion artifact limits this study. Mild soft tissue edema adjacent to each greater trochanter. IMPRESSION: 1. Serpiginous areas of T2 hyperintensity are identified involving the left femoral head, consistent with avascular necrosis. 2. Bilateral hip arthropathy. 3. Mild tendinopathy of the iliopsoas tendon, consistent with tendinopathy. Minimal fluid is also seen adjacent to this tendon. 4. Additional findings described above. Electronically signed by: Jorge L Rodriguez On 04/01/2020 21:55:40 PM
--- NOTE | 2020-04-01 23:03 | REPVR ---
PROCEDURE INFORMATION: Exam: XR Chest, 1 View Exam date and time: 04/01/2020 10:06 PM Age: 75 years old Clinical indication: Other: Pre-op TECHNIQUE: Imaging protocol: XR of the chest Views: 1 view. COMPARISON: CR Chest, 2 view PA, Lat 09/25/2016 11:00 AM FINDINGS: Lungs: Mild left basilar atelectatic change. Otherwise, there is no confluent infiltrate. Pleural space: No pleural effusion. No pneumothorax. Heart/Mediastinum: The cardiac silhouette appears mildly enlarged. Vasculature: Increased tortuosity of the thoracic aorta. Bones/joints: Hypertrophic degenerative changes are noted involving the spine. IMPRESSION: 1. Mild left basilar atelectatic change. 2. The cardiac silhouette appears mildly enlarged. Electronically signed by: Jorge L Rodriguez On 04/01/2020 23:03:13 PM
[2020-04-01] MEDS ORDERED: ACET500T15 PO (23:12)
[2020-04-01] MEDS ORDERED: SERT-138 PO (23:12)
[2020-04-01 23:28] LABS: NT-PRO BNP 337 PG/ML (<125); TROPONIN I < 0.02 NG/ML (< 0.10)
[2020-04-01 23:45] LABS: INR 0.97; PROTHROMBIN TIME 13.1 SECONDS (11.8-14.0)
[2020-04-01] MEDS ORDERED: MAALOX 30 ML SUSP *UDC PO PRN (23:45)
[2020-04-01] MEDS ORDERED: MOM 30ML SUSPENSION UDC PO PRN (23:45)
[2020-04-01 23:46] LABS: PARTIAL THROMBOPLASTIN TIME 29.5 SECONDS (25.0-38.4)
[2020-04-02] VITALS (7 sets, daily range): BP systolic 110–170; BP diastolic 70–94
[2020-04-02] MEDS: MORPHINE 2 MG/ML 1ML VIAL (J2270) IV PRN ×5 (00:32→10:11)
[2020-04-02] MEDS: NS 1,000 ML IV SCH ×2 (01:37→16:07)
--- NOTE | 2020-04-02 02:21 | HPEPDOC ---
[facility] Medical History & Physical Date of Admission Apr 01, 2020 Date of Service: Apr 01, 2020 Attending Physician: FABY HANSON MD History and Physical TIME OF SERVICE: 1121pm CHIEF COMPLAINT: pain HISTORY OF PRESENT ILLNESS: This 75 yr old M developed sudden onset L hip pain that is in his lower back, shoots up and down his leg, and is 10/10 in severity last Sunday; he has been taking acetaminophen at home which didnt help. He denies falling. He saw yesterday, had an xray done and was told that there was an abnormality on the xray that might indicate the bone was dying. He was given meloxicam but continued to have pain so he came to the ER. He was found to have AVN of the L hip and received morphine which alleviated the pain. REVIEW OF SYSTEMS: 12 point review of systems negative except as listed in HPI PAST MEDICAL/ SURGICAL HISTORY: Chronic HTN Dyslipidemia Chronic CAD s/p 2 vessel PTCA in 1998 ED Back Surgery to manage right sided lumbar radiculopathy in 2016 Bilateral inguinal hernia repairs Cataract surgery 2007 SOCIAL HISTORY: Former smoker quit in 1969 Drinks 3 or 4 alcoholic beverages with diner Doesnt use recreational drugs Retired used to work at [employer] facility Has 1 son & 1 daughter FAMILY HISTORY: CAD brother and grandfather Renal failure & HTN - mother Accidental drowning father ALLERGIES: Please see below. HOME MEDICATIONS: Please see below. PHYSICAL EXAM Vital Signs Date Time Temp Pulse Resp B/P (MAP) Pulse Ox O2 Delivery O2 Flow Rate FiO2 04/01/20 19:08 98.3 108 18 210/108 (142) 100 Room Air GENERAL APPEARANCE: obese/ well developed /NAD HEENT: no scleral icterus / EOMI CARDIOVASCULAR: RRR/NMRG / trace BLE edema LUNGS: CTAB on RA ABDOMEN: distended/ tympanic on percussion/ not tender w palpitation MUSCULOSKELETAL: VEE x 4 INTEGUMENT: no generalized palor NEUROLOGICAL: CN -12 intact / speech not dysarthric PSYCHIATRIC: A&Ox 3 /able to understand and follow all commands LABORATORY DATA: 04/01/20 19:36 Nucleated Red Blood Cells % (auto) 0.0, Anion Gap 12, Glomerular Filtration Rate > 60.0, Calcium Level 9.2, Troponin I < 0.02, KB-Pdb-P-Type Natriuretic Peptide 337H 04/01/20 23:18: Prothrombin Time 13.1, Prothromb Time International Ratio 0.97, Activated Partial Thromboplast Time 29.5 04/01/20 23:20: Coronavirus (COVID-19)(PCR) NEGATIVE IMAGING: Chest x-ray IMPRESSION: 1. Mild left basilar atelectatic change. 2. The cardiac silhouette appears mildly enlarged. MRI hip IMPRESSION: 1. Serpiginous areas of T2 hyperintensity are identified involving the left femoral head, consistent with avascular necrosis. 2. Bilateral hip arthropathy. 3. Mild tendinopathy of the iliopsoas tendon, consist ent with tendinopathy. Minimal fluid is also seen adjacent to this tendon. 4. Additional findings described above. MICROBIOLOGY: Please see below. ASSESSMENT: is a 75 yr old w a hx of HTN & chronic CAD who presented w left hip pain and was found to have avascular necrosis of the hip. PLAN: 1 AVN of the L Hip He denied falling; the only risk factor for AVN he appears to have daily alcohol use Plan: admit to medical floor / NPO/ IVF Ortho consult / Morphine for pain w stool softeners / PT & OT consult 2 Perioperative Evaluation At his baseline he can climb at least 2 flights of stairs His RCRI score is = 1 points = class II risk. His pro-BNP >300 Plan: beyond telemetry and daily troponins no additional testing is needed prior to proceeding with surgery / d/c meloxicam / hold lisinopril to reduce the risk of marisa-operative hypotension, the ACEI can be resumed 2 days after surgery 3 Uncontrolled HTN Per d/w RN the BP readings of around 210/108 were done by the machine and may be inaccurate as the manual BP was 140/80 Plan: control BP / start amlodipine 4 Possible Alcohol dependence Plan: thiamine, folic acid & Ativan per CIND protocol 5 Dyslipidemia Plan: atorvastatin and fenofibrate DVT px w SCDs Dispo: home after more than 2 midnights stay Home Medications Scheduled Acetaminophen (Acetaminophen) 500 Mg Tablet, 1,000 MG PO BID Atorvastatin Calcium (Atorvastatin Calcium) 40 Mg Tab, 40 MG PO DAILY Enalapril Maleate (Enalapril Maleate) 5 Mg Tab, 5 MG PO BID Fenofibrate (Fenofibrate) 54 Mg Tab, 54 MG PO DAILY Meloxicam (Meloxicam) 15 Mg Tablet, 15 MG PO DAILY Omeprazole (Omeprazole) 20 Mg Cap, 20 MG PO DAILY Sertraline HCl (Sertraline HCl) 100 Mg Tablet, 50 MG PO DAILY Allergies Coded Allergies: Penicillins (Verified Allergy, Intermediate, HIVES, 04/01/20) ciprofloxacin (Verified Allergy, Intermediate, HIVES, 04/01/20) raspberry (Verified Allergy, Intermediate, HIVES, 04/01/20) A-FIB/CHADSVASC A-FIB History Current/History of A-Fib/PAF?: No Current PO Anticoag Therapy: No FABY HANSON MD Apr 02, 2020 02:21
[2020-04-02] MEDS ORDERED: LORazepam 2 MG/ML VIAL IV PRN ×2 (04:45→05:15)
[2020-04-02 09:02] LABS: HEMATOCRIT 38.4 % (42.0-52.0); HEMOGLOBIN 13.2 g/dl (13.5-17.5); MEAN CORPUSCULAR HEMOGLOBIN 33.2 pg (27.0-33.0); MEAN CORPUSCULAR HGB CONC 34.4 g/dl (32.0-36.5); MEAN CORPUSCULAR VOLUME 96.5 fl (80.0-96.0); PLATELET COUNT, AUTOMATED 226 10^3/uL (150-450); RED BLOOD COUNT 3.98 10^6/uL (4.30-6.10); WHITE BLOOD COUNT 6.1 10^3/uL (4.0-10.0)
[2020-04-02 09:26] LABS: TOTAL PROTEIN 6.5 GM/DL (6.4-8.2)
[2020-04-02 09:29] LABS: BLOOD UREA NITROGEN 16 MG/DL (7-18); CALCIUM LEVEL 8.7 MG/DL (8.8-10.2); CARBON DIOXIDE LEVEL 27 MEQ/L (21-32); CHLORIDE LEVEL 108 MEQ/L (98-107); CREATININE FOR GFR 0.86 MG/DL (0.70-1.30); GLOMERULAR FILTRATION RATE > 60.0 (>42); GLUCOSE, FASTING 91 MG/DL (70-100); POTASSIUM SERUM 3.5 MEQ/L (3.5-5.1); SODIUM LEVEL 141 MEQ/L (136-145); TROPONIN I < 0.02 NG/ML (< 0.10)
[2020-04-02] MEDS: MIRALAX *UNIT DOSE* 17GM PACKET PO SCH (10:48)
[2020-04-02] MEDS: FOLIC ACID 1 MG TAB PO SCH (10:48)
[2020-04-02] MEDS: THIAMINE 100 MG TAB PO SCH ×2 (10:48→21:33)
[2020-04-02] MEDS: OMEPRAZOLE 20 MG CAP PO SCH (10:48)
[2020-04-02] MEDS: SERTRALINE HCL 50 MG TAB PO SCH (10:48)
[2020-04-02] MEDS: MULTIVITAMINS/MINERALS THERAP 1 TAB PO SCH (10:48)
[2020-04-02] MEDS: ATORVASTATIN 20 MG TAB PO SCH (10:49)
[2020-04-02] MEDS: FENOFIBRATE 48 MG TAB (TRICOR) PO SCH (11:01)
[2020-04-02] MEDS ORDERED: DOCUSATE SODIUM 100 MG CAP PO PRN (12:00)
[2020-04-02] MEDS: MORPHINE 30 MG TAB **MSIR PO SCH ×3 (13:02→21:34)
[2020-04-02] MEDS ORDERED: SLF 3 ML SYR IV PRN (16:30)
[2020-04-02] MEDS: HYDROmorphone 2 MG TAB PO PRN (16:31)
[2020-04-02] MEDS ORDERED: KETOROLAC 30 MG/ML 1ML VIAL IV ONE (19:00)
[2020-04-02] MEDS ORDERED: KETOROLAC TROMETHAMINE 10 MG TAB PO PRN (19:00)
[2020-04-02] MEDS ORDERED: PREGABALIN 25 MG CAP (LYRICA) PO ONE (20:00)
[2020-04-02] MEDS: SLF 3 ML SYR IV SCH (23:25)
[2020-04-03] VITALS: BP 125/94
[2020-04-03 04:00] VITALS: BP 152/78
[2020-04-03] MEDS: SLF 3 ML SYR IV SCH ×3 (05:03→19:29)
[2020-04-03 06:02] VITALS: BP 162/88
[2020-04-03 06:03] VITALS: BP 162/88
[2020-04-03] MEDS: HYDROmorphone 2 MG TAB PO PRN (07:08)
[2020-04-03] MEDS: FENOFIBRATE 48 MG TAB (TRICOR) PO SCH (08:05)
[2020-04-03] MEDS: MORPHINE 30 MG TAB **MSIR PO SCH (08:05)
[2020-04-03] MEDS: OMEPRAZOLE 20 MG CAP PO SCH (08:05)
[2020-04-03] MEDS: THIAMINE 100 MG TAB PO SCH ×2 (08:05→19:28)
[2020-04-03] MEDS: ATORVASTATIN 20 MG TAB PO SCH (08:05)
--- NOTE | 2020-04-03 08:05 | IPN ---
DATE: 04/02/2020 SUBJECTIVE: Patient complains of severe 10/10 pain over the left hip with limited mobility. No fever or chills. No upper or lower extremity weakness. No shortness of breath, chest pain, pressure or tightness. OBJECTIVE PHYSICAL EXAMINATION: VITALS: Temperature 97.5, pulse 60, respiratory rate 16, blood pressure 170/80, 98% on room air. GENERAL: Patient is awake, alert and oriented to person, place and time. Answering questions appropriately. LUNGS: Clear to auscultation. No wheezing, rales or rhonchi. HEART: S1, S2, sinus rhythm. ABDOMEN: Soft, nontender, non-distended. Positive bowel sounds. EXTREMITIES: Severe pain along the left hip. No cyanosis, clubbing or pitting edema. LABORATORY DATA: White count 6, hemoglobin 13, hematocrit 38, platelet count 226,000. Sodium 141, potassium 3.5, chloride 108, bicarb 27, BUN 16, creatinine 0.86, glucose 91. ASSESSMENT AND PLAN: 1. Avascular necrosis of the left hip: Workup will include ruling out for rheumatologic diseases. Check BREANA. Rule out for hypercoagulable state. Patient denies history of myeloma, etoh , or or heavy cigarette use in the past. No history of sickle cell anemia. Ortho has been consulted for total hip, pain control, bowel regimen. PRN pain meds. 2. History of chronic artery disease; status post two vessel PTCA in 1998: Stable, no acute issues. 3. Chronic hypertension: Resumed on home medications. 4. Dyslipidemia: On statin. MTDD
[2020-04-03] MEDS: MIRALAX *UNIT DOSE* 17GM PACKET PO SCH (08:06)
[2020-04-03] MEDS: SERTRALINE HCL 50 MG TAB PO SCH (08:06)
[2020-04-03] MEDS: MULTIVITAMINS/MINERALS THERAP 1 TAB PO SCH (08:06)
[2020-04-03] MEDS: FOLIC ACID 1 MG TAB PO SCH (08:06)
[2020-04-03 08:13] LABS: C REACTIVE PROTEIN QUANTITATIV 0.42 MG/DL (0.00-0.30); TROPONIN I < 0.02 NG/ML (< 0.10)
[2020-04-03] MEDS ORDERED: HYDROmorphone 2 MG TAB PO ONE (10:30)
[2020-04-03] MEDS ORDERED: HYDROMORPHONE HCL 0.5 MG/ 0.5 ML SYRINGE (J1170 PER 1) IV PRN ×4 (10:30)
[2020-04-03] MEDS ORDERED: HYDROmorphone HCL 2 MG/ML 1ML VIAL (J1170) IV PRN (10:30)
[2020-04-03] MEDS ORDERED: amLODIPine 5 MG TAB PO ONE (10:30)
[2020-04-03 14:00] VITALS: BP 141/79
[2020-04-03 16:07] LABS: ANTI DOUBLE STRAND-DNA AB 36 IU/mL (0-9); ANTINUCLEAR ANTIBODIES DIRECT Positive (Negative); RNP ANTIBODIES <0.2 AI (0.0-0.9); SJOGREN'S ANTI SS-A <0.2 AI (0.0-0.9); SJOGREN'S ANTI SS-B <0.2 AI (0.0-0.9); SMITH ANTIBODIES <0.2 AI (0.0-0.9)
[2020-04-03] MEDS: HYDROMORPHONE HCL 0.5 MG/ 0.5 ML SYRINGE (J1170 PER 1) IV PRN ×2 (16:17→19:29)
[2020-04-03] MEDS: ACETAMINOPHEN TAB 650MG DOSE (2X325MG) PO PRN (18:52)
[2020-04-03 22:00] VITALS: BP 140/76
[2020-04-04] MEDS: SLF 3 ML SYR IV SCH ×2 (01:06→08:03)
[2020-04-04] MEDS: HYDROMORPHONE HCL 0.5 MG/ 0.5 ML SYRINGE (J1170 PER 1) IV PRN (05:16)
[2020-04-04 06:00] VITALS: BP 167/84
[2020-04-04 07:28] LABS: C REACTIVE PROTEIN QUANTITATIV 0.55 MG/DL (0.00-0.30); TROPONIN I < 0.02 NG/ML (< 0.10)
[2020-04-04 07:44] LABS: ERYTHROCYTE SEDIMENTATION RATE 17 mm/hr (0-20)
[2020-04-04] MEDS ORDERED: PERCOCET 5MG/325MG TAB PO PRN (07:45)
[2020-04-04] MEDS: KETOROLAC 30 MG/ML 1ML VIAL IV PRN ×3 (07:59→18:46)
[2020-04-04] MEDS: ATORVASTATIN 20 MG TAB PO SCH (08:00)
[2020-04-04] MEDS: OMEPRAZOLE 20 MG CAP PO SCH (08:00)
[2020-04-04] MEDS: FENOFIBRATE 48 MG TAB (TRICOR) PO SCH (08:00)
[2020-04-04] MEDS: PERCOCET 5MG/325MG TAB PO PRN ×4 (08:00→20:46)
[2020-04-04] MEDS: SERTRALINE HCL 50 MG TAB PO SCH (08:00)
[2020-04-04] MEDS: THIAMINE 100 MG TAB PO SCH ×2 (08:01→20:45)
[2020-04-04] MEDS: MULTIVITAMINS/MINERALS THERAP 1 TAB PO SCH (08:01)
[2020-04-04] MEDS: FOLIC ACID 1 MG TAB PO SCH (08:01)
[2020-04-04] MEDS: CYCLOBENZAPRINE 10MG TABLET PO SCH ×3 (08:02→20:45)
[2020-04-04] MEDS: MIRALAX *UNIT DOSE* 17GM PACKET PO SCH (09:00)
[2020-04-04] MEDS ORDERED: HYDROmorphone (DILAUDID) 4 MG TAB PO ONE (10:45)
[2020-04-04] MEDS ORDERED: MORPHINE 4 MG/ML 1ML VIAL/SYRINGE (J2270) IV ONE (10:45)
[2020-04-04] MEDS ORDERED: lisinopriL 5 MG TAB PO ONE (11:30)
[2020-04-04 11:59] LABS: BLOOD UREA NITROGEN 22 MG/DL (7-18); CALCIUM LEVEL 8.4 MG/DL (8.8-10.2); CARBON DIOXIDE LEVEL 26 MEQ/L (21-32); CHLORIDE LEVEL 108 MEQ/L (98-107); CREATININE FOR GFR 0.77 MG/DL (0.70-1.30); GLOMERULAR FILTRATION RATE > 60.0 (>42); GLUCOSE, FASTING 99 MG/DL (70-100); POTASSIUM SERUM 3.9 MEQ/L (3.5-5.1); SODIUM LEVEL 141 MEQ/L (136-145)
[2020-04-04 12:16] LABS: HEMATOCRIT 36.6 % (42.0-52.0); HEMOGLOBIN 12.6 g/dl (13.5-17.5); MEAN CORPUSCULAR HEMOGLOBIN 33.3 pg (27.0-33.0); MEAN CORPUSCULAR HGB CONC 34.4 g/dl (32.0-36.5); MEAN CORPUSCULAR VOLUME 96.8 fl (80.0-96.0); PLATELET COUNT, AUTOMATED 226 10^3/uL (150-450); RED BLOOD COUNT 3.78 10^6/uL (4.30-6.10); WHITE BLOOD COUNT 6.1 10^3/uL (4.0-10.0)
[2020-04-04 13:59] LABS: INR 0.91; PROTHROMBIN TIME 12.5 SECONDS (11.8-14.0)
[2020-04-04 14:00] VITALS: BP 137/68
[2020-04-04 22:00] VITALS: BP 115/62
[2020-04-05] MEDS: PERCOCET 5MG/325MG TAB PO PRN ×4 (01:17→18:13)
[2020-04-05] MEDS: SLF 3 ML SYR IV SCH ×4 (01:17→22:50)
[2020-04-05] MEDS: KETOROLAC 30 MG/ML 1ML VIAL IV PRN ×3 (02:51→15:21)
[2020-04-05 06:00] VITALS: BP 122/60
[2020-04-05] MEDS: OMEPRAZOLE 20 MG CAP PO SCH (09:07)
[2020-04-05] MEDS: MULTIVITAMINS/MINERALS THERAP 1 TAB PO SCH (09:08)
[2020-04-05] MEDS: CYCLOBENZAPRINE 10MG TABLET PO SCH ×3 (09:08→20:01)
[2020-04-05] MEDS: FENOFIBRATE 48 MG TAB (TRICOR) PO SCH (09:08)
[2020-04-05] MEDS: SERTRALINE HCL 50 MG TAB PO SCH (09:08)
[2020-04-05] MEDS: amLODIPine 10 MG TAB PO SCH (09:08)
[2020-04-05] MEDS: MIRALAX *UNIT DOSE* 17GM PACKET PO SCH (09:08)
[2020-04-05] MEDS: FOLIC ACID 1 MG TAB PO SCH (09:09)
[2020-04-05] MEDS: lisinopriL 5 MG TAB PO SCH (09:09)
[2020-04-05] MEDS: ATORVASTATIN 20 MG TAB PO SCH (09:09)
[2020-04-05 14:00] VITALS: BP 122/68
[2020-04-05] MEDS: ACETAMINOPHEN TAB 650MG DOSE (2X325MG) PO PRN (20:01)
[2020-04-05 22:00] VITALS: BP 141/76
[2020-04-06] MEDS: PERCOCET 5MG/325MG TAB PO PRN ×2 (04:25→11:06)
[2020-04-06] MEDS: KETOROLAC 30 MG/ML 1ML VIAL IV PRN ×2 (04:30→13:25)
[2020-04-06] MEDS: SLF 3 ML SYR IV SCH ×3 (04:58→20:46)
[2020-04-06 05:36] LABS: ERYTHROCYTE SEDIMENTATION RATE 35 mm/hr (0-20)
[2020-04-06 05:39] LABS: C REACTIVE PROTEIN QUANTITATIV 2.64 MG/DL (0.00-0.30)
[2020-04-06 06:00] VITALS: BP 136/91
[2020-04-06] MEDS ORDERED: CLINDAMYCIN 900 MG in IV 1 EA IV ONE (06:00)
[2020-04-06 08:06] LABS: COMPLEMENT C3 148 MG/DL (90-180); COMPLEMENT C4 30 MG/DL (10-40)
[2020-04-06] MEDS: lisinopriL 5 MG TAB PO SCH (09:00)
[2020-04-06] MEDS: amLODIPine 10 MG TAB PO SCH (09:00)
[2020-04-06] MEDS: CYCLOBENZAPRINE 10MG TABLET PO SCH ×3 (09:00→20:46)
[2020-04-06] MEDS: OMEPRAZOLE 20 MG CAP PO SCH (09:00)
[2020-04-06] MEDS: FENOFIBRATE 48 MG TAB (TRICOR) PO SCH (09:00)
[2020-04-06] MEDS: ATORVASTATIN 20 MG TAB PO SCH (09:00)
[2020-04-06] MEDS: MULTIVITAMINS/MINERALS THERAP 1 TAB PO SCH (09:00)
[2020-04-06] MEDS: MIRALAX *UNIT DOSE* 17GM PACKET PO SCH (09:00)
[2020-04-06] MEDS: FOLIC ACID 1 MG TAB PO SCH (09:00)
[2020-04-06] MEDS: SERTRALINE HCL 50 MG TAB PO SCH (09:00)
--- NOTE | 2020-04-06 10:13 | IPN ---
DATE: 04/03/2020 SUBJECTIVE: Patient says pain is 10/10 at the hip. Unable to ambulate. Worse when he moves around. No fever or chills. OBJECTIVE: PHYSICAL EXAMINATION: VITAL SIGNS: Temperature 98.1, pulse 66, respiratory rate 18, blood pressure 162/88. GENERAL: Patient is awake, alert, oriented to person, place, and time, answering questions appropriately. No jugular venous distention (JVD). No thyromegaly. Moist mucous membranes. LUNGS: Clear to auscultation. No wheezing, rales, or rhonchi. HEART: S1, S2, sinus rhythm. No murmurs, rubs, or gallops. ABDOMEN: Soft, nontender, nondistended. Positive bowel sounds times four quadrants. No abdominal bruit. No costovertebral angle (CVA) tenderness. EXTREMITIES: Severe pain along the left hip with limited range of motion. LABORATORY DATA: CBC on April 02 reviewed. April 03 metabolic panel: CRP is 0.4. Troponin less than 0.2. UPEP aspect will pending. ASSESSMENT AND PLAN: This is a 75-year-old male admitted due to severe left hip pain, found to have: avascular necrosis of the left hip most likely due to chronic alcohol abuse. Workup is still pending, SPEP, UPEP, BREANA, rule out hypercoagulable state. Patient is currently having 10/10 pain. Therefore, intravenous (IV) Dilaudid non-monitored reduced dose has been given. Dr. Reza has been consulted for total hip replacement. He will see the patient tomorrow. History of coronary artery disease, status post 2-vessel percutaneous transluminal coronary angioplasty (PTCA) in 1998. No acute issues. Resume her home medications. Chronic hypertension. Unstable and uncontrolled due to severe pain. Patient's blood pressure medications have been increased. Dyslipidemia, on chronic statin. Positive BREANA, rule out lupus. however, anti george ab negative, will check complement levels. 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 [facility]
--- NOTE | 2020-04-06 10:16 | IPNPDOC ---
Date Seen The patient was seen on 04/06/20. Progress Note Per Dr. Gruber, Law Instructor, unlikely to have lupus due to his age group, and high false positive on serologic tests with negative complement levels, and antismith ab. plan: recommends no further rheumatological workup outpt referral recommends surgery if indicated no empiric treatment with steroids lupus extremely unlikely and not a usual cause of avascular necrosis even if had antiphospholipid syndrome, usually only if pt had been on chronic steroids. VS, I&O, 24H, Fishbone Vital Signs/I&O Vital Signs Date Time Temp Pulse Resp B/P (MAP) Pulse Ox O2 Delivery O2 Flow Rate FiO2 04/06/20 06:00 98.9 83 17 136/91 (106) 94 Room Air I&O- Last 24 Hours up to 6 AM 04/06/20 06:00 Intake Total 2140 ml Output Total 350 ml Balance 1790 ml Laboratory Data 24H LABS Laboratory Tests 2 04/06/20 04:56: Erythrocyte Sedimentation Rate 35H, C-Reactive Protein, Quantitative 2.64H, Complement C3 148, Complement C4 30 04/06/20 08:08: ANNA ALEXIS MD Apr 06, 2020 10:16
[2020-04-06 10:53] LABS: ALT/SGPT 19 U/L (12-78); BILIRUBIN,TOTAL 0.4 MG/DL (0.2-1.0); BLOOD UREA NITROGEN 25 MG/DL (7-18); CALCIUM LEVEL 8.4 MG/DL (8.8-10.2); CARBON DIOXIDE LEVEL 27 MEQ/L (21-32); CHLORIDE LEVEL 107 MEQ/L (98-107); CREATININE FOR GFR 0.96 MG/DL (0.70-1.30); GLOMERULAR FILTRATION RATE > 60.0 (>42); GLUCOSE, FASTING 116 MG/DL (70-100); POTASSIUM SERUM 3.9 MEQ/L (3.5-5.1); SODIUM LEVEL 139 MEQ/L (136-145); TOTAL PROTEIN 6.5 GM/DL (6.4-8.2)
[2020-04-06 11:01] LABS: BASO % 0.5 % (0.0-1.0); EOS # 0.1 10^3/uL (0.0-0.5); HEMATOCRIT 34.9 % (42.0-52.0); HEMOGLOBIN 11.8 g/dl (13.5-17.5); LYMPH # 0.6 10^3/uL (1.5-5.0); LYMPH % 7.4 % (24.0-44.0); MEAN CORPUSCULAR HEMOGLOBIN 33.7 pg (27.0-33.0); MEAN CORPUSCULAR HGB CONC 33.8 g/dl (32.0-36.5); MEAN CORPUSCULAR VOLUME 99.7 fl (80.0-96.0); MONO # 0.6 10^3/uL (0.0-0.8); NEUTROPHILS # 6.7 10^3/uL (1.5-8.5); NEUTROPHILS % 83.7 % (36.0-66.0); PLATELET COUNT, AUTOMATED 211 10^3/uL (150-450)
[2020-04-06 12:31] LABS: ALBUMIN 3.93 GM/DL (3.29-5.55); ALBUMIN % 60.5 % (55.8-66.1); ALPHA-1-GLOBULIN % 5.1 % (2.9-4.9); ALPHA-1-GLOBULINS 0.33 GM/DL (0.17-0.41); ALPHA-2-GLOBULINS % 13.8 % (7.1-11.8); BETA-1-GLOBULINS 0.36 GM/DL (0.28-0.60); BETA-1-GLOBULINS % 5.5 % (4.7-7.2); BETA-2-GLOBULINS % 4.6 % (3.2-6.5); GAMMA GLOBULIN % 10.5 % (11.1-18.8); GAMMA GLOBULINS 0.68 GM/DL (0.65-1.58)
[2020-04-06 14:00] VITALS: BP 108/64
[2020-04-06] MEDS ORDERED: IBUPROFEN 400 MG TAB PO PRN (21:00)
[2020-04-06 22:00] VITALS: BP 140/84
[2020-04-07] MEDS: PERCOCET 5MG/325MG TAB PO PRN ×3 (03:32→21:19)
[2020-04-07 05:40] LABS: BASO % 0.6 % (0.0-1.0); EOS # 0.1 10^3/uL (0.0-0.5); EOS % 2.1 % (0.0-3.0); HEMATOCRIT 34.3 % (42.0-52.0); HEMOGLOBIN 11.2 g/dl (13.5-17.5); LYMPH # 0.9 10^3/uL (1.5-5.0); LYMPH % 14.7 % (24.0-44.0); MEAN CORPUSCULAR HEMOGLOBIN 32.8 pg (27.0-33.0); MEAN CORPUSCULAR HGB CONC 32.7 g/dl (32.0-36.5); MEAN CORPUSCULAR VOLUME 100.6 fl (80.0-96.0); MONO # 0.6 10^3/uL (0.0-0.8); MONO % 10.3 % (0.0-5.0); NEUTROPHILS # 4.5 10^3/uL (1.5-8.5); PLATELET COUNT, AUTOMATED 200 10^3/uL (150-450); RED BLOOD COUNT 3.41 10^6/uL (4.30-6.10); WHITE BLOOD COUNT 6.2 10^3/uL (4.0-10.0)
[2020-04-07 05:49] LABS: BLOOD UREA NITROGEN 23 MG/DL (7-18); C REACTIVE PROTEIN QUANTITATIV 2.44 MG/DL (0.00-0.30); CALCIUM LEVEL 8.8 MG/DL (8.8-10.2); CARBON DIOXIDE LEVEL 32 MEQ/L (21-32); CHLORIDE LEVEL 107 MEQ/L (98-107); CREATININE FOR GFR 0.96 MG/DL (0.70-1.30); GLOMERULAR FILTRATION RATE > 60.0 (>42); GLUCOSE, FASTING 98 MG/DL (70-100); POTASSIUM SERUM 4.7 MEQ/L (3.5-5.1); SODIUM LEVEL 138 MEQ/L (136-145)
[2020-04-07 06:00] VITALS: BP 137/75
[2020-04-07] MEDS: SLF 3 ML SYR IV SCH ×3 (06:00→21:19)
[2020-04-07 06:02] LABS: ERYTHROCYTE SEDIMENTATION RATE 49 mm/hr (0-20)
[2020-04-07] MEDS: MIRALAX *UNIT DOSE* 17GM PACKET PO SCH (08:59)
[2020-04-07] MEDS: FENOFIBRATE 48 MG TAB (TRICOR) PO SCH (08:59)
[2020-04-07] MEDS: ATORVASTATIN 20 MG TAB PO SCH (08:59)
[2020-04-07] MEDS: MULTIVITAMINS/MINERALS THERAP 1 TAB PO SCH (08:59)
[2020-04-07] MEDS: lisinopriL 5 MG TAB PO SCH (09:00)
[2020-04-07] MEDS: OMEPRAZOLE 20 MG CAP PO SCH (09:00)
[2020-04-07] MEDS: FOLIC ACID 1 MG TAB PO SCH (09:00)
[2020-04-07] MEDS: CYCLOBENZAPRINE 10MG TABLET PO SCH ×3 (09:01→21:18)
[2020-04-07] MEDS: amLODIPine 10 MG TAB PO SCH (09:01)
[2020-04-07] MEDS: SERTRALINE HCL 50 MG TAB PO SCH (09:01)
[2020-04-07 14:00] VITALS: BP 120/62
[2020-04-07 22:00] VITALS: BP 117/64
[2020-04-08] MEDS: SLF 3 ML SYR IV SCH (05:34)
[2020-04-08 06:00] VITALS: BP 120/68
[2020-04-08] MEDS: FENOFIBRATE 48 MG TAB (TRICOR) PO SCH (08:58)
[2020-04-08 08:59] VITALS: BP 120/68
[2020-04-08] MEDS: MULTIVITAMINS/MINERALS THERAP 1 TAB PO SCH (08:59)
[2020-04-08] MEDS: FOLIC ACID 1 MG TAB PO SCH (08:59)
[2020-04-08] MEDS: ATORVASTATIN 20 MG TAB PO SCH (08:59)
[2020-04-08] MEDS: CYCLOBENZAPRINE 10MG TABLET PO SCH (08:59)
[2020-04-08] MEDS: SERTRALINE HCL 50 MG TAB PO SCH (08:59)
[2020-04-08] MEDS: OMEPRAZOLE 20 MG CAP PO SCH (08:59)
[2020-04-08] MEDS: lisinopriL 5 MG TAB PO SCH (08:59)
[2020-04-08] MEDS: MIRALAX *UNIT DOSE* 17GM PACKET PO SCH (09:00)
[2020-04-08] MEDS: amLODIPine 10 MG TAB PO SCH (09:00)
[2020-04-08] MEDS ORDERED: PERCOCET PO (10:28)
--- NOTE | 2020-04-08 11:32 | IPN ---
DATE: 04/05/2020 SUBJECTIVE: The patient still complains of 5/10 discomfort at the hip, unrelieved by current regimen but tolerable. Afebrile. No chills. No other new complaints. No other joint issues. PHYSICAL EXAMINATION: VITALS: Temperature 97.9, pulse 56, respiratory rate 20, blood pressure 122/60, 96% on room air. GENERAL: Awake, alert and oriented x3. HEENT: No JVD or thyromegaly. Moist mucous membranes. No carotid bruits. No cervical lymphadenopathy. LUNGS: Clear to auscultation. No wheezing, rales or rhonchi. HEART: S1 and S2, sinus rhythm. ABDOMEN: Soft, nontender and nondistended. Positive bowel sounds. EXTREMITIES: No cyanosis, clubbing or pitting edema. Limited range of motion left hip due to severe pain. LABORATORY DATA: BREANA positive, anti-double stranded DNA, IgG antibody 36, anti- smooth antibody is less than 0.2, SSA/Ro, SSAB less than 0.2. Carrion-IgG less than 0.2. ASSESSMENT AND PLAN: This is a 75-year-old male with a history of CAD status post PTCA in 1998 x2, chronic hypertension, dyslipidemia, alcohol abuse, no history of smoking, who presents with persistent left hip pain with limitations of ADLs, was found to have avascular necrosis of the left hip on MRI. CURRENT ISSUES: 1. Preop medical clearance. Patient denies any acute ischemic complaints, chest pain, pressure, tightness or shortness of breath. No history of heart failure. He usually has no ischemic complaints at home prior to admission. Activity was limited only by the left hip pain. Patient is medically stable to proceed to surgery if needed. He is medically optimized. 2. Avascular necrosis of the left hip with prior history of alcohol abuse. Patients BREANA and anti-double stranded DNA are both abnormal, anti-Carrion, however is negative. At this time will continue to finish up workup rheumatologically. Rheumatoid consult in the morning, to determine the need for treatment and diagnosis. At this time, we can opt to wait electively for the hip replacement. This is to be discussed between the orthopedic surgeon as well as the patient as the patient is uncomfortable with limitations of ADLs. Per ortho, patient may be activity as tolerated with fall precautions, PT has been consulted. He is kept on Percocet one to two tabs every 4 hour, Toradol and Flexeril for control, bowel regimen. MTDD
--- NOTE | 2020-04-08 11:42 | IPN ---
DATE: 04/06/2020 SUBJECTIVE: Patient says his pain is 1/10 when he is not moving, 10/10 when he bears weight on the hip. Afebrile. No chills. No other complaints overnight. PHYSICAL EXAMINATION: VITAL SIGNS: Temperature 98.9, pulse is 83, respiratory rate is 17, blood pressure is 136/91, 94% on room air. GENERAL: The patient is awake, alert and oriented x3, answering questions appropriately. HEENT: Anicteric sclera. No jaundice. No icterus. Moist mucous membranes. LUNGS: Clear to auscultation. No wheezing, rales or rhonchi. No adventitious breath sounds. Air entry is equal bilaterally. HEART: S1 and S2, sinus rhythm. No murmurs, rubs or gallops. Nondisplaced point of maximal impulse. No carotid bruits. ABDOMEN: Soft, nontender and nondistended. Positive bowel sounds x4 quadrants. No hepatosplenomegaly. No abdominal bruit. EXTREMITIES: Pain along the left hip with severe limitation on exam. No cyanosis, clubbing or pitting edema of bilateral lower extremities. LABORATORY DATA: Pending. ASSESSMENT AND PLAN: This is a 75-year-old male with a history of alcohol abuse, chronic hypertension, dyslipidemia, CAD x2 vessels, PTCA in 1998, chronic back pain with right sided lumbar radiculopathy, bilateral inguinal hernia repair and cataract surgery who presented with worsening pain in the left leg. He was evaluated by his orthopedic surgeon, was found to have avascular necrosis of the left hip. IMPRESSION: 1. Avascular necrosis of the left hip. 2. Hypertension. 3. Alcohol abuse. 4. Dyslipidemia. 5. Abnormal BREANA and positive anti-double stranded DNA, rule out lupus. PLAN: 1. Per Orthopedic Surgeon. Surgery with total hip as last resort. 2. Continue workup for hypercoagulable state and rheumatoid disease. Rheumatology, Dr. Gruber, has been consulted for assistance. 3. Continue on pain medications. 4. bowel regimen 5. Continue on Lipitor, Prilosec, Zoloft, Tricor, folic acid, multivitamin and Tylenol. MTDD
[2020-04-08 14:00] VITALS: BP 132/74
[2020-04-08] MEDS ORDERED: CYCL-707 PO (14:24)
--- NOTE | 2020-04-08 14:50 | DS.PDOC ---
Discharge Summary General Date of Admission Apr 01, 2020 at 23:32 Date of Discharge 04/08/20 Discharge Summary DISCHARGE DIAGNOSES: AVASCULAR NECROSIS OF LEFT HIP ETOH ABUSE POSITIVE BREANA CAD S/P PTCA CHRONIC HTN DISCHARGE MEDICATIONS; SEE BELOW CHEESE BLENDER: EVIE ROSENBAUM DISCHARGE INSTRUCTIONS PCP DR ROBI CASE FU WITHIN 1 WK FALL PRECAUTIONS PCP TO REFER TO DICTATING MACHINE TYPIST IF SYMPTOMATIC HOSPITAL COURSE; 75-year-old male with a history of CAD status post PTCA in 1998 x2, chronic hypertension, dyslipidemia, alcohol abuse, no history of smoking, who presents with persistent left hip pain with limitations of ADLs, was found to have avascular necrosis of the left hip on MRI. Workup for Avascular necrosis of the left hip with prior history of alcohol abuse included positive BREANA and anti-double stranded DNA with anti-Carrion,being negative.unlikely to be lupus per carpet inspector in light of pt's age group and serology findings. At this time, we can opt to wait electively for the hip replacement. Dr Rosenbaum was consulted and recommended conservative mgt and no emergent need for total hip replacement. pain meds were given prn, and pt passed hse by PT/OT, and was not a candidate for ARU. DISCHARGE PHYSICAL EXAMINATION: VITALS: SEE BELOW GENERAL: Awake, alert and oriented x3. HEENT: No JVD or thyromegaly. Moist mucous membranes. No carotid bruits. No cervical lymphadenopathy. LUNGS: Clear to auscultation. No wheezing, rales or rhonchi. HEART: S1 and S2, sinus rhythm. ABDOMEN: Soft, nontender and nondistended. Positive bowel sounds. EXTREMITIES: No cyanosis, clubbing or pitting edema. Limited range of motion left hip due to severe pain. DISCHARGE LABORATORY DATA, IMAGING STUDIES, MICROBIOLOGY: SEE BELOW TIME SPENT ON DISCHARGE: 30 MIN Vital Signs/I&Os Vital Signs Date Time Temp Pulse Resp B/P (MAP) Pulse Ox O2 Delivery O2 Flow Rate FiO2 04/08/20 14:00 98.4 85 18 132/74 (93) 97 Room Air I&O- Last 24 Hours up to 6 AM 04/08/20 06:00 Intake Total 1200 ml Output Total 0 ml Balance 1200 ml Laboratory Data Labs 24H Laboratory Tests 2 04/08/20 06:10: Erythrocyte Sedimentation Rate 40H, C-Reactive Protein, Quantitative 1.40H Discharge Medications Scheduled Acetaminophen (Acetaminophen) 500 Mg Tablet, 1,000 MG PO BID, (Reported) Atorvastatin Calcium (Atorvastatin Calcium) 40 Mg Tab, 40 MG PO DAILY, (Reported) Cyclobenzaprine HCl (Cyclobenzaprine HCl) 10 Mg Tablet, 10 MG PO TID Enalapril Maleate (Enalapril Maleate) 5 Mg Tab, 5 MG PO BID, (Reported) Fenofibrate (Fenofibrate) 54 Mg Tab, 54 MG PO DAILY, (Reported) Meloxicam (Meloxicam) 15 Mg Tablet, 15 MG PO DAILY, (Reported) Omeprazole (Omeprazole) 20 Mg Cap, 20 MG PO DAILY, (Reported) Sertraline HCl (Sertraline HCl) 100 Mg Tablet, 50 MG PO DAILY, (Reported) Scheduled PRN Oxycodone/Acetaminophen (Oxycodone-Acetaminophen 5-325) 1 Each Tablet, 2 TAB PO Q4HP PRN for SEVERE PAIN (PS 8-10) Allergies Coded Allergies: Penicillins (Verified Allergy, Intermediate, HIVES, 04/01/20) ciprofloxacin (Verified Allergy, Intermediate, HIVES, 04/01/20) raspberry (Verified Allergy, Intermediate, HIVES, 04/01/20) ANNA ALEXIS MD Apr 08, 2020 14:50
--- NOTE | 2020-04-11 08:44 | IPN ---
DATE: 04/07/2020 SUBJECTIVE: Patient complains of 0 to 1/10 pain when he is not moving in bed. When he tries to ambulate, pain increases to 6/10. Currently on as needed 1-2 tablets of Percocet and Flexeril 10 t.i.d. Patient has passed physical therapy and occupational therapy per Dr. Reza, no acute indication for total hip replacement at this time despite avascular necrosis of the hip per Dr. Gruber, controller mechanic. Patient most likely does not have lupus in light of negative anti-Carrion antibody and complement levels, unlikely to present at this age. Would not defer any kind of surgery if it was warranted, outpatient follow-up. OBJECTIVE/PHYSICAL EXAMINATION: VITALS: Temperature 98, pulse 72, respiratory rate 18, blood pressure 137/75, 96% on room air. GENERAL: Awake, alert and oriented. Answering questions appropriately to name, place and date. No respiratory distress. Anicteric, no jaundice. No JVD or thyromegaly or cervical lymphadenopathy. Moist mucous membranes. LUNGS: Clear to auscultation. No wheezing, rales or rhonchi. HEART: S1, S2, sinus rhythm. ABDOMEN: Soft, nontender, non-distended. Positive bowel sounds. EXTREMITIES: Left hip limited range of motion internal rotation, abduction, flexion, extension due to severe pain. Gait was not tested. No lower extremity edema bilaterally. LABORATORY DATA: White count 6.2, hemoglobin 11, hematocrit 34, platelet count 200,000. Sodium 138, potassium 4.7, chloride 107, bicarb 32, BUN 23, creatinine 0.96, glucose 98. C-reactive protein 2.44. Positive BREANA screen, double stranded DNA of 36, negative PASTA PRESS OPERATOR, IGG antibodies, anti-Carrion antibody_. C3-4 and total complement ordered. C3, C4 normal. ASSESSMENT AND PLAN: This is a 75-year-old male with a history of alcohol use, chronic hypertension, CAD, status post PTCA x2 vessels, dyslipidemia, who presents with worsening left hip pain, found to have avascular necrosis of the hip. IMPRESSION: 1. Avascular necrosis of the left hip. 2. CAD; status post two vessel PTCA in 1998. 3. Chronic hypertension. 4. Dyslipidemia. 5. Positive BREANA; negative for lupus. PLAN: Per Dr. Gruber, controller mechanic, patient does not have lupus as this does not present in his age group nor does it usually present with end-stage disease with avascular necrosis, unlikely to be lupus at this time and would need to have low complement levels if active. Recommended no further workup. Outpatient follow-up if needed. Per Dr. Reza, patient does not need urgent surgery. Patient has passed PT and OT. Currently on Percocet 1-2 tablets and Toradol, which has been discontinued. Patient is currently on Ibuprofen as needed. Continued on Norvasc, Lisinopril for blood pressure, and Cyclobenzaprine. Deferred to surgery if change in plans, but for now per Dr. Reza, patient does not require inpatient total hip replacement at this time. Family has requested second opinion, and Dr. Olivarez the orthopedic surgeon alterations supervisor has been consulted. Patient's son number is [phone]. DISPOSITION: Since the patient has passed PT and cleared by OT, unable to be placed in ARU, deferred to social work for placement issues. SARA
[2020-04-13 11:57] LABS: DRVV SCREEN 40.5 SEC
--- NOTE | 2020-04-16 10:31 | ECGEPIP ---
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
== END 2020-04-08 15:15 | disposition home health service (06) | DRG 554 ==
LOC: M ED 19:07 → M ED INP 23:32 → ENRESERV 23:50 → M PCU 04-02 01:17 → M MS5PR 04-03 04:52
PROVIDERS: ADMIT Internal Medicine; ATTEND General Practice
DX: M87.052 Idiopathic aseptic necrosis of left femur (principal); I10 Essential (primary) hypertension; F10.10 Alcohol abuse, uncomplicated; I25.10 Atherosclerotic heart disease of native coronary artery without angina pectoris; E78.5 Hyperlipidemia, unspecified; Z79.899 Other long term (current) drug therapy; Z88.0 Allergy status to penicillin; Z88.8 Allergy status to other drugs, medicaments and biological substances; Z91.018 Allergy to other foods; Z87.891 Personal history of nicotine dependence

== ENCOUNTER → 2020-05-11 | Outpatient (CLI) | payer MEDICARE, BC, OTHER ==
[~2020-05-11] MED LIST changes: +ACET500T15 PO; +CYCL-707 PO; +MELO15TA28 PO; +PERC5TAB12 PO; +PERCOCET PO; +SERT-138 PO; +XARE10TA PO
[2020-05-11 14:36] LABS: HEMATOCRIT 44.8 % (42.0-52.0); MEAN CORPUSCULAR HEMOGLOBIN 31.8 pg (27.0-33.0); MEAN CORPUSCULAR HGB CONC 33.5 g/dl (32.0-36.5); MEAN CORPUSCULAR VOLUME 95.1 fl (80.0-96.0); PLATELET COUNT, AUTOMATED 286 10^3/uL (150-450); RED BLOOD COUNT 4.71 10^6/uL (4.30-6.10); WHITE BLOOD COUNT 6.5 10^3/uL (4.0-10.0)
[2020-05-11 14:57] LABS: INR 0.93; PROTHROMBIN TIME 12.6 SECONDS (12.5-14.3)
--- NOTE | 2020-05-11 15:01 | ECGEPIP ---
[facility] Test Date: 2020-05-11 Pat Name: ELIU TESFAYE Department: Room: - Gender: Male Content Specialist: [facility] : 1945 Requested By: Meño Meadows Order Number: [id number] Reading MD: Ashley Morris Measurements Intervals [place] Rate: 102 P: 4 MI: 149 QRS: -49 QRSD: 88 T: 55 QT: 334 QTc: 435 Interpretive Statements SINUS TACHYCARDIA RATE FASTER INF WALL MS A CHANGE SINCE 04/01/20/ PRWP // NEW S WAVES V5 AND 6/ NSSTTW ABN S SLIGHTLY MORE MARKED Electronically Signed on 05-11-2020 15:00:40 EDT by Ashley Morris
[2020-05-11 15:03] LABS: ALBUMIN 4.3 GM/DL (3.2-5.2); ALT/SGPT 41 U/L (12-78); BILIRUBIN,TOTAL 0.4 MG/DL (0.2-1.0); BLOOD UREA NITROGEN 20 MG/DL (7-18); CALCIUM LEVEL 10.6 MG/DL (8.8-10.2); CARBON DIOXIDE LEVEL 30 MEQ/L (21-32); CHLORIDE LEVEL 103 MEQ/L (98-107); CREATININE FOR GFR 1.18 MG/DL (0.70-1.30); GLOMERULAR FILTRATION RATE > 60.0 (>42); GLUCOSE, FASTING 108 MG/DL (70-100); SODIUM LEVEL 141 MEQ/L (136-145); TOTAL PROTEIN 7.9 GM/DL (6.4-8.2)
[2020-05-11 15:34] LABS: ERYTHROCYTE SEDIMENTATION RATE 17 mm/hr (0-20)
--- NOTE | 2020-05-14 13:21 | REP ---
CHEST X-RAY CLINICAL: Preoperative assessment for left hip replacement. TECHNIQUE: PA and lateral. COMPARISON: 09/25/2016. FINDINGS: Mediastinum and cardiac silhouette normal. Lung strange are clear. No focal consolidation, effusion, or pneumothorax. Skeletal structures are intact. IMPRESSION: Normal chest x-ray. No acute cardiopulmonary process or focal consolidation. MTDD
== END ==
LOC: M LAB 13:52
PROVIDERS: ATTEND Orthopaedic Surgery
DX: Z01.818 Encounter for other preprocedural examination (principal); M16.12 Unilateral primary osteoarthritis, left hip

== ENCOUNTER → 2020-05-19 | Outpatient (CLI) | payer MEDICARE, BC, OTHER | LOC: M LABSMTC 11:10 | PROVIDERS: ATTEND Anesthesiology | DX: Z01.812 Encounter for preprocedural laboratory examination (principal); Z20.828 Contact with and (suspected) exposure to other viral communicable diseases | CPT/HCPCS: C9803; U0003 ==

== ENCOUNTER 2020-05-24 06:11 | Inpatient (IN) | payer MEDICARE, BC, OTHER ==
--- NOTE | 2020-05-21 11:03 | HPE ---
DATE OF ADMISSION: 05/24/2020 CHIEF COMPLAINT: Left hip pain. HISTORY OF PRESENT ILLNESS: Rishabh is a pleasant 75-year-old male with avascular necrosis of his left hip. He has failed to improve with conservative treatment. He has elected for surgery for his continued symptoms. He has pain with weightbearing activities and his activities of daily living. X-rays of his hip are notable for advanced arthritis and avascular necrosis of the femur. He was consented for a left total hip arthroplasty by Dr. Meño Reza. Medical optimization was performed by Dr. [place]. ALLERGIES: PENICILLIN, CIPRO. CURRENT MEDICATIONS: - omeprazole 20 mg a day. - sertraline 50 mg a day. - fenofibrate 54 mg a day. - Enalapril maleate 5 mg every day. - Tylenol 325 mg as needed. - ketoconazole 2% cream as needed. - atorvastatin calcium 40 mg. PAST MEDICAL HISTORY: * High blood pressure. * High cholesterol. * Anxiety. * Depression. * Gastroesophageal reflux disease (GERD). PAST SURGICAL HISTORY: Lumbar spinal fusion. SOCIAL HISTORY: This gentleman is retired. He does not smoke. Drinks alcohol daily. FAMILY HISTORY: Non-contributory. REVIEW OF SYSTEMS: This patient denies chest pain, heart palpitations, cough, wheezing, difficulty breathing, and shortness of breath. He denies abdominal pain, nausea, vomiting, diarrhea, or constipation. He denies recent upper respiratory infection or urinary tract infection symptoms. He does complain of persistent pain in the left hip. PHYSICAL EXAMINATION: GENERAL: He is a well-nourished and well-nourished, in no acute distress, alert male. He ambulates with a moderate limp favoring his left lower extremity. He does use a single leg cane. VITAL SIGNS: He is 64 inches tall and weighs 163 pounds. Temperature 97.1, blood pressure 148/56, respirations 12, pulse 73. NECK: Supple without adenopathy or jugular venous distention. LUNGS: Clear to auscultation without rales or wheeze throughout. HEART: Regular rate and rhythm. ABDOMEN: Bowel sounds are present. EXTREMITIES: Examination of the hip revealed intact skin. He had decreased range of motion due to pain and stiffness. The limb is neurovascularly intact. IMAGING: Chest x-ray showed no acute cardiopulmonary disease processes. DIAGNOSTIC STUDIES: EKG showed sinus tachycardia at 102 beats per minute. LABORATORY DATA: ProTime 12.6, INR 0.93. Glucose 108, BUN 20, creatinine 1.18, sodium 141, potassium 4.0. CBC was within normal limits. Sed rate was 17. IMPRESSION: Symptomatic avascular necrosis of the left hip. PLAN: Consented for a left total hip arthroplasty by Dr. Meño Reza. SARA
[2020-05-24] VITALS (7 sets, daily range): BP systolic 118–135; BP diastolic 64–82
[~2020-05-24] VITALS: Ht 162.6 cm; Wt 73.9 kg
[~2020-05-24 06:11] MED LIST changes: +LIDOCAINE 1% MDV 20ML VIAL SQ PRN; -PERC5TAB12 PO; -XARE10TA PO
[2020-05-24] MEDS ORDERED: VANCOMYCIN 1000MG/20ML VIAL As Ordered ONE (06:35)
[2020-05-24] MEDS ORDERED: ACETAMINOPHEN 500 MG TAB As Ordered ONE (06:36)
[2020-05-24] MEDS ORDERED: VANCOMYCIN HCL 1,000 MG, VIAL MATE ADAPTER 1 EACH in D5W 250 ML IV ONE (06:45)
[2020-05-24] MEDS ORDERED: ACETAMINOPHEN 500 MG TAB PO ONE (06:45)
[2020-05-24] MEDS ORDERED: MIDAZOLAM INJ 2MG/2ML VIAL (J2250 PER 1MG) As Ordered ONE ×2 (06:59→07:59)
[2020-05-24] MEDS ORDERED: fentaNYL 100 MCG/2 ML INJECTION (J3010) As Ordered ONE (07:00)
[2020-05-24] MEDS ORDERED: PREGABALIN 75 MG CAP(LYRICA) PO ONE (07:00)
[2020-05-24] MEDS ORDERED: CelecoXIB 400 MG CAP PO ONE (07:00)
[2020-05-24] MEDS ORDERED: propofoL 500 MG/50 ML VIAL As Ordered ONE (07:06)
[2020-05-24] MEDS ORDERED: TRANEXAMIC ACID 100 MG/ML 10ML VIAL As Ordered ONE (07:16)
[2020-05-24] MEDS ORDERED: BUPIVACAINE/EPIN 0.25% 30 ML VIAL As Ordered ONE (07:16)
[2020-05-24] MEDS ORDERED: BUPIVACAINE LIPOSOME/PF 1.3% 20ML VIAL (13.3MG/ML)(EXPAREL)(C9290 PER1MG) As Ordered ONE (07:17)
[2020-05-24] MEDS ORDERED: CLINDAMYCIN INJ 900MG/6ML VIAL As Ordered ONE (07:17)
[2020-05-24] MEDS ORDERED: BUPIVACAINE HCL 0.5% 30 ML VIAL As Ordered ONE (07:17)
[2020-05-24] MEDS ORDERED: EPINEPHrine INJ 1 MG/ML 1ML AMP As Ordered ONE (07:17)
[2020-05-24] MEDS ORDERED: propofoL 200 MG/20 ML VIAL As Ordered ONE (07:25)
[2020-05-24] MEDS ORDERED: CLINDAMYCIN 900 MG/50 ML PREMIX BAG As Ordered ONE (07:48)
[2020-05-24] MEDS ORDERED: ePHEDrine SULFATE 25 MG/5 ML(5MG/ML) SYRINGE As Ordered ONE (08:01)
[2020-05-24] MEDS ORDERED: PHENYLephrine HCL 500 MCG/5 ML (100MCG/ML) SYRINGE (J2370) As Ordered ONE ×2 (08:05→08:49)
[2020-05-24] MEDS ORDERED: LR 1,000 ML IV ONE (08:15)
[2020-05-24] MEDS ORDERED: oxyCODONE 5MG TAB PO PRN (10:00)
[2020-05-24] MEDS ORDERED: LR 1,000 ML IV SCH ×2 (10:00)
[2020-05-24] MEDS ORDERED: ONDANSETRON 4MG/2ML VIAL IV PRN ×2 (10:00→11:45)
[2020-05-24] MEDS ORDERED: fentaNYL 100 MCG/2 ML INJECTION (J3010) IV PRN (10:00)
[2020-05-24] MEDS ORDERED: PERCOCET 5MG/325MG TAB PO PRN ×2 (10:00→11:45)
[2020-05-24] MEDS ORDERED: HYDROMORPHONE HCL 0.5 MG/ 0.5 ML SYRINGE (J1170 PER 1) IV PRN ×3 (10:00→11:45)
--- NOTE | 2020-05-24 10:06 | REP ---
INDICATION: POSTB OP IN PACU. Left hip. COMPARISON: No comparison.. TECHNIQUE: AP and cross-table lateral views of the left hip are obtained. FINDINGS: Patient is status post left hip arthroplasty. There is periarticular soft tissue emphysema. Arthroplasty components appear well aligned with respect to each other and their [place] bones. Patient is also status post prior lumbosacral spine fusion surgery. IMPRESSION: Status post left hip arthroplasty. <Electronically signed by Brody Crockett > 05/24/20 [id number]
[2020-05-24] MEDS ORDERED: ACETAMINOPHEN TAB 650MG DOSE (2X325MG) PO PRN (11:45)
[2020-05-24] MEDS ORDERED: PROMETHAZINE INJ 25 MG/ML VIAL (J2550) IV PRN (11:45)
[2020-05-24] MEDS: PERCOCET 5MG/325MG TAB PO PRN ×2 (13:47→18:32)
[2020-05-24] MEDS: CLINDAMYCIN 600 MG in IV 1 EA IV SCH ×2 (15:38→22:00)
--- NOTE | 2020-05-24 17:37 | HPEPDOC ---
General Date of Admission May 24, 2020 at 06:11 Date of Service: May 24, 2020 Chief Complaint The patient is a 75-year-old male admitted with a reason for visit of Arthritis Left Hip. History of Present Illness Consultation report: Consultation requested by orthopedics Consultation for the management of medical commodities. HPI: 75-year-old male with avascular necrosis of his left hip. He has failed to improve with conservative treatment. He has elected for surgery for his continued symptoms. He was admitted for elective left total hip arthroplasty Home Medications Scheduled Acetaminophen (Acetaminophen) 500 Mg Tablet, 1,000 MG PO BID, (Reported) Atorvastatin Calcium (Atorvastatin Calcium) 40 Mg Tab, 40 MG PO DAILY, (Reported) Enalapril Maleate (Enalapril Maleate) 5 Mg Tab, 5 MG PO BID, (Reported) Fenofibrate (Fenofibrate) 54 Mg Tab, 54 MG PO DAILY, (Reported) Omeprazole (Omeprazole) 20 Mg Cap, 20 MG PO DAILY, (Reported) Sertraline HCl (Sertraline HCl) 100 Mg Tablet, 50 MG PO DAILY, (Reported) Allergies Coded Allergies: Penicillins (Verified Allergy, Intermediate, HIVES, 05/24/20) ciprofloxacin (Verified Allergy, Intermediate, HIVES, 05/24/20) raspberry (Verified Allergy, Intermediate, HIVES, 05/24/20) Past Medical History Medical History HTN HLD Anxiety. Depression. GERD OA Chronic CAD s/p 2 vessel PTCA in 1998 ED Surgical History Lumbar spinal fusion 2017 Bilateral inguinal hernia repairs Cataract surgery 2007 Family History CAD brother and grandfather Renal failure & HTN - mother Accidental drowning father Social History * Smoker: former Smoker Alcohol: other (3 to 4 drinks daily) Drugs: denies A-FIB/CHADSVASC A-FIB History Current/History of A-Fib/PAF?: No Review of Systems Constitutional: Denies: Chills, Fever, Night Sweats Eyes: Denies: Pain, Vision change ENT: Denies: Head Aches, Ear Pain, Dysphagia Skin: Denies: Rash, Lesions, Breakdown Pulmonary: Denies: Dyspnea, Cough Cardiovascular: Denies: Chest Pain, Palpitations, Orthopnea, Paroxysmal Noc. Dyspnea, Lt Headedness Gastrointestinal: Denies: Nausea, Vomiting, Abdominal Pain, Diarrhea Genitourinary: Denies: Dysuria, Frequency, Incontinence, Retention Hematologic: Denies: Bruising, Bleeding Excessively Musculoskeletal: Reports: Back Pain, Joint Pain Physical Examination General Exam: Positive: Alert, Cooperative, No Acute Distress Eye Exam: Positive: PERRLA, Conjunctiva & lids normal, EOMI; Negative: Sclera icteric ENT Exam: Positive: Atraumatic, Mucous membr. moist/pink, Pharynx Normal Neck Exam: Positive: Supple; Negative: JVD, thyromegaly Chest Exam: Positive: Clear to auscultation, Normal air movement Heart Exam: Positive: Rate Normal, Regular Rhythm, Normal S1, Normal S2; Negative: Murmurs, Rubs Abdomen Exam: Positive: Normal bowel sounds, Soft; Negative: Tenderness, Hepatospenomegaly Extremity Exam: Positive: Normal pulses; Negative: Clubbing, Cyanosis, Edema Vital Signs Vital Signs Date Time Temp Pulse Resp B/P (MAP) Pulse Ox O2 Delivery O2 Flow Rate FiO2 05/24/20 15:30 97.8 82 16 129/64 (85) 97 Room Air 05/24/20 09:50 3 Assessment/Plan 75-year-old male with avascular necrosis of his left hip. He has failed to improve with conservative treatment. He has elected for surgery for his continued symptoms. He was admitted for elective left total hip arthroplasty S/p Left total hip arthroplasty pain control and DVT prophylaxis as per ortho HTN hold enalapril tonight till BMP tomorrow If needed can give amlodipine. HLD continue statin, hold fenofibrate for now Anxiety Sertraline CAD no issues at this time Plan / VTE VTE Prophylaxis Ordered?: Yes MEME AGUILERA MD May 24, 2020 17:37
[2020-05-24] MEDS: OMEPRAZOLE 20 MG CAP PO SCH (18:32)
[2020-05-24] MEDS: SERTRALINE HCL 50 MG TAB PO SCH (18:32)
[2020-05-24] MEDS: ATORVASTATIN 20 MG TAB PO SCH (18:32)
[2020-05-25 02:00] VITALS: BP 132/74
[2020-05-25] MEDS: PERCOCET 5MG/325MG TAB PO PRN ×3 (05:39→21:11)
[2020-05-25 06:00] VITALS: BP 124/75
[2020-05-25 07:45] LABS: BLOOD UREA NITROGEN 14 MG/DL (7-18); CALCIUM LEVEL 8.3 MG/DL (8.8-10.2); CARBON DIOXIDE LEVEL 26 MEQ/L (21-32); CHLORIDE LEVEL 105 MEQ/L (98-107); CREATININE FOR GFR 0.99 MG/DL (0.70-1.30); GLOMERULAR FILTRATION RATE > 60.0 (>42); GLUCOSE, FASTING 127 MG/DL (70-100); POTASSIUM SERUM 3.9 MEQ/L (3.5-5.1); SODIUM LEVEL 137 MEQ/L (136-145)
[2020-05-25] MEDS ORDERED: XARE10TA PO (07:55)
[2020-05-25] MEDS ORDERED: PERC5TAB12 PO (07:55)
[2020-05-25] MEDS: ATORVASTATIN 20 MG TAB PO SCH (09:40)
[2020-05-25] MEDS: SERTRALINE HCL 50 MG TAB PO SCH (09:40)
[2020-05-25] MEDS: OMEPRAZOLE 20 MG CAP PO SCH (09:40)
[2020-05-25] MEDS: MIRALAX *UNIT DOSE* 17GM PACKET PO SCH (09:40)
[2020-05-25] MEDS: MOM 30ML SUSPENSION UDC PO SCH (09:40)
--- NOTE | 2020-05-25 12:51 | RO ---
DATE: 05/24/2020 PREOPERATIVE DIAGNOSIS: Left hip avascular necrosis. POSTOPERATIVE DIAGNOSIS: Left hip avascular necrosis. PROCEDURE: Left total hip arthroplasty. SURGEON: Meño Reza MD OCCUPATIONAL THERAPY DIRECTOR: REYNALDO Burris ANESTHESIA: Spinal. ESTIMATED BLOOD LOSS: Less than 100 ml COMPLICATIONS: None. COMPONETS USED INCLUDE: DePuy Crawford hip system size 4 femoral high offset stem, plus 5 neck length, 36 mm stainless steel hip ball, 36 mm polyethylene liner and a 52 mm acetabular component, apex hole eliminator. INDICATIONS: Intractable discomfort in a 75-year-old with a left hip MRI evidence of avascular necrosis. The patient has elected for hip replacement. Consent reviewed in detail with patient. Next, the patient was identified in the holding area. Site was verified there. He was brought to the operating room. He had spinal anesthesia and positioned on Fredy frame for exposure of left hip for arthroplasty. Once he was sterilely prepped and draped in the usual fashion, time-out was accomplished. Next, Mr. Hartley stood on the anterior, I on the posterior and this approach was a modified Hardinge approach. Incision was outlined with a marking pen over the greater trochanter. Infiltrated with 25% Marcaine with epinephrine, made with a 10 blade developed down through skin and subcuticular tissue to the lateral fascia. The lateral fascia was then divided using a 10 blade knife and the Dykes scissors exposing the abduction mechanism. The abductor mechanism was split at its anterior 3rd and dissection continued along the femoral neck and splitting the hip capsule and minimus. The abductor mechanism was tagged on its anterior portion and then released from the greater trochanter leaving a cuff of tissue for later repair. The vastus lateralis was split. The hip capsule was split to allow palpation of the lesser trochanter. The bone hook was utilized to dislocate the hip and Mr. Hartley implemented dislocation maneuver externally rotating and applying traction while I utilized the bone hook. Next, femoral canal was entered using the canal opening reamer, followed by the canal finding reamer, followed by the canal lateralizing reamer, followed by serial reamers through a size 4/5. Next, the template was applied. Femoral neck cut was made by myself using the oscillating saw approximately 0.5 fingerbreadth in the lesser trochanter Next, once this was accomplished, we exposed the acetabulum. Mr. Hartley utilized retractors while I utilized the hot knife to remove the acetabulum labrum and additional clearance of pulvinar from the acetabular fossa and splitting the transverse acetabular ligament. Next, once this was accomplished, I utilized hemispherical reamers from a size 48 up to a size 51 down to the floor of the acetabulum, down to bleeding bone. I trialed with a 52 trial, which fit appropriately. Next, we obtained the 52 non- trial acetabulum. We irrigated with pulse lavage, as well as TXA. I implanted the acetabular component using a targeting device, verified it was in the floor of the acetabulum, as well as the apex hole eliminator. We also utilized several cc of Exparel local anesthetic solution for capsular pain control at this time in this area. Once this was accomplished, attention was turned to the femoral side and we applied the appropriate retractors to expose proximal femur. I then utilized femoral broaches through a size 4, which fit appropriately. We trialed with high offset plus 5 neck with a 36 mm femoral head. This was reduced. The hip was placed in range of motion, was appreciated to be stable. We then again dislocated the head, removed these trial components, irrigated the wound with post lavage irrigation, as well as TXA. I then installed the non-trial femoral component and tamped into place. Next, I then installed the non-trial femoral head, tamped into place with a nylon impactor. Next, the hip was then again reduced. Mr. Hartley re-inspected, we placed the hip in range of motion; it was stable. Mr. Hartley positioned the retractors and I closed the capsule and minimus and then we re-approximated the abductor mechanism to the greater trochanter cuff of tissue with interrupted stitch, mattress style. We re- approximated the vastus lateralis with interrupted and running stitch. Next, the lateral fascia was then re-approximated with interrupted, as well as STRATFIX stitch. Remaining Exparel solution was then instilled around the wound for perioperative pain control. Deep dermis was then approximated with interrupted stitch. Prineo dressing was applied. Mr. Hartley then assisted me in disassembling the Lizella positioner and then the patient was moved from the prone to the supine position and moved to the hospital bed in good condition. He was moved to the recovery room in good condition. Postoperative imaging was taken to verify hip placement in recovery room. For further details, please refer to medical records. Mr. Hartley was present and participated in the entirety of the case. SARA
--- NOTE | 2020-05-25 14:25 | IPNPDOC ---
Subjective Date Seen The patient was seen on 05/25/20. Subjective Chief Complaint/HPI Appropriate pain at eh left hip with stiffness. no nausea or vomting or diarrhea, Low grade fever last night. Instructed to use his incentive spirometry frequently. Objective Physical Examination General Exam: Positive: Alert, Cooperative, No Acute Distress Eye Exam: Positive: PERRLA, Conjunctiva & lids normal, EOMI; Negative: Sclera icteric ENT Exam: Positive: Atraumatic, Mucous membr. moist/pink, Pharynx Normal Neck Exam: Positive: Supple; Negative: JVD, thyromegaly Chest Exam: Positive: Clear to auscultation, Normal air movement Heart Exam: Positive: Rate Normal, Regular Rhythm, Normal S1, Normal S2; Negative: Murmurs, Rubs Abdomen Exam: Positive: Normal bowel sounds, Soft; Negative: Tenderness, Hepatospenomegaly Extremity Exam: Positive: Normal pulses; Negative: Clubbing, Cyanosis, Edema Assessment /Plan Assessment 75-year-old male with avascular necrosis of his left hip. He has failed to improve with conservative treatment. He has elected for surgery for his continued symptoms. He was admitted for elective left total hip arthroplasty S/p Left total hip arthroplasty pain control and DVT prophylaxis as per ortho PT/OT HTN hold enalapril tonight till BMP tomorrow If needed can give amlodipine. HLD continue statin, hold fenofibrate for now Anxiety Sertraline CAD no issues at this time Plan/VTE VTE Prophylaxis Ordered?: Yes VS, I&O, 24H, Fishbone Vital Signs/I&O Vital Signs Date Time Temp Pulse Resp B/P (MAP) Pulse Ox O2 Delivery O2 Flow Rate FiO2 05/25/20 10:40 17 05/25/20 06:00 98.4 84 124/75 (91) 97 Room Air 05/24/20 09:50 3 I&O- Last 24 Hours up to 6 AM 05/25/20 06:00 Intake Total 3480 ml Output Total 1575 ml Balance 1905 ml Laboratory Data 24H LABS Laboratory Tests 2 05/25/20 07:07: Anion Gap 6L, Glomerular Filtration Rate > 60.0, Calcium Level 8.3L CBC/BMP Laboratory Tests 05/25/20 07:07 MEME AGUILERA MD May 25, 2020 14:25
[2020-05-25 14:32] VITALS: BP 117/68
[2020-05-25] MEDS ORDERED: RIVAROXABAN 10 MG TAB (XARELTO) PO SCH (18:00)
[2020-05-25 22:00] VITALS: BP 118/65
[2020-05-26] MEDS: PERCOCET 5MG/325MG TAB PO PRN ×3 (01:17→13:46)
[2020-05-26 06:00] VITALS: BP 117/62
[2020-05-26] MEDS: MIRALAX *UNIT DOSE* 17GM PACKET PO SCH (09:00)
[2020-05-26] MEDS: MOM 30ML SUSPENSION UDC PO SCH (09:00)
[2020-05-26] MEDS: SERTRALINE HCL 50 MG TAB PO SCH (09:27)
[2020-05-26] MEDS: OMEPRAZOLE 20 MG CAP PO SCH (09:27)
[2020-05-26] MEDS: ATORVASTATIN 20 MG TAB PO SCH (09:27)
== END 2020-05-26 13:40 | disposition home or self-care (01) | DRG 470 ==
LOC: M OR 06:11 → M MS5PR 10:50
PROVIDERS: ADMIT Orthopaedic Surgery; ATTEND Orthopaedic Surgery
PROC: 0SRB04A Replacement of Left Hip Joint with Ceramic on Polyethylene Synthetic Substitute, Uncemented, Open Approach (ICD-10-PCS; principal; 2020-05-24 07:30)
DX: M87.052 Idiopathic aseptic necrosis of left femur (principal); Z79.899 Other long term (current) drug therapy; Z88.0 Allergy status to penicillin; Z88.8 Allergy status to other drugs, medicaments and biological substances; F41.9 Anxiety disorder, unspecified; F32.9 Major depressive disorder, single episode, unspecified; K21.9 Gastro-esophageal reflux disease without esophagitis; E78.00 Pure hypercholesterolemia, unspecified; I10 Essential (primary) hypertension; I25.10 Atherosclerotic heart disease of native coronary artery without angina pectoris; Z87.891 Personal history of nicotine dependence

== ENCOUNTER 2020-10-21 04:34 | Inpatient (IN) | payer MEDICARE, BC, OTHER ==
[~2020-10-21] VITALS: Ht 165.1 cm; Wt 77.7 kg
[~2020-10-21 04:34] MED LIST changes: -LIDOCAINE 1% MDV 20ML VIAL SQ PRN; +PERC5TAB12 PO; +XARE10TA PO
[2020-10-21] MEDS ORDERED: ONDANSETRON 4MG/2ML VIAL IV ONE (05:00)
[2020-10-21 05:06] LABS: BASO # 0.1 10^3/uL (0.0-0.2); EOS # 0.2 10^3/uL (0.0-0.5); EOS % 2.8 % (0.0-3.0); HEMATOCRIT 45.6 % (42.0-52.0); HEMOGLOBIN 14.8 g/dl (13.5-17.5); LYMPH # 1.3 10^3/uL (1.5-5.0); LYMPH % 18.8 % (24.0-44.0); MEAN CORPUSCULAR HEMOGLOBIN 30.6 pg (27.0-33.0); MEAN CORPUSCULAR HGB CONC 32.5 g/dl (32.0-36.5); MEAN CORPUSCULAR VOLUME 94.4 fl (80.0-96.0); MONO # 0.5 10^3/uL (0.0-0.8); NEUTROPHILS # 4.7 10^3/uL (1.5-8.5); NEUTROPHILS % 70.1 % (36.0-66.0); PLATELET COUNT, AUTOMATED 250 10^3/uL (150-450); RED BLOOD COUNT 4.83 10^6/uL (4.30-6.10); WHITE BLOOD COUNT 6.7 10^3/uL (4.0-10.0)
[2020-10-21] MEDS ORDERED: ISOVUE-370 76% 100ML VIAL As Ordered ONE (05:08)
[2020-10-21] MEDS: MORPHINE 4 MG/ML 1ML VIAL/SYRINGE (J2270) IV PRN ×6 (05:10→14:10)
[2020-10-21 05:16] LABS: INR 0.91; PROTHROMBIN TIME 12.4 SECONDS (12.5-14.3)
[2020-10-21 05:17] LABS: PARTIAL THROMBOPLASTIN TIME 27.8 SECONDS (24.2-38.5)
[2020-10-21 05:38] LABS: ALBUMIN 4.3 GM/DL (3.2-5.2); ALT/SGPT 22 U/L (12-78); BILIRUBIN,DIRECT 0.1 MG/DL (0.0-0.2); BILIRUBIN,TOTAL 0.4 MG/DL (0.2-1.0); CK-MB VALUE MASS 1.2 NG/ML (<3.6); CPK CREATINE PHOSPHOKINASE 107 U/L (39-308); LIPASE 98 U/L (73-393); MB/CK RELATIVE INDEX 1.12 (< OR =4); TROPONIN I < 0.02 NG/ML (< 0.10)
--- NOTE | 2020-10-21 05:55 | REPVR ---
PROCEDURE INFORMATION: Exam: CT Angiography Chest With Contrast Exam date and time: 10/21/2020 4:59 AM Age: 75 years old Clinical indication: Chest pain; Type not specified; Additional info: Abd pain, R/O dissection TECHNIQUE: Imaging protocol: Computed tomographic angiography of the chest with contrast. 3D rendering (Not supervised by radiologist): MIP and/or 3D reconstructed images were created by the technologist. Radiation optimization: All CT scans at this facility use at least one of these dose optimization techniques: automated exposure control; mA and/or kV adjustment per patient size (includes targeted exams where dose is matched to clinical indication); or iterative reconstruction. Contrast material: ISO; Contrast volume: 100 ml; Contrast route: INTRAVENOUS (IV); COMPARISON: CR Chest, 2 view PA, Lat 05/11/2020 2:28 PM FINDINGS: Pulmonary arteries: Normal. No pulmonary emboli. Aorta: The aortic root is normal in caliber measuring 3.3 cm. The ascending thoracic aorta is dilated at 4.2 centimetres. The aortic arch and descending thoracic aorta are normal in caliber with no evidence of dissection. Lungs: Unremarkable. No consolidation. No masses. Pleural spaces: Unremarkable. No pneumothorax. No pleural effusion. Heart: There is mild to moderate coronary vascular calcifications. Heart is normal in size. There is no pericardial effusion. Mediastinal space: There is small sliding hiatal hernia. Lymph nodes: Unremarkable. No enlarged lymph nodes. Bones/joints: Unremarkable. No acute fracture. Soft tissues: Unremarkable. IMPRESSION: 1. Fusiform aneurysmal dilatation of the ascending aorta at 4.[address] evidence thoracic aortic dissection, ulcerated plaque or rupture. 3. Small sliding hiatal hernia. Electronically signed by: Manjit Garner On 10/21/2020 05:54:52 AM
--- NOTE | 2020-10-21 06:10 | REPVR ---
PROCEDURE INFORMATION: Exam: CT Angiography Abdomen and Pelvis With Contrast Exam date and time: 10/21/2020 4:59 AM Age: 75 years old Clinical indication: Abdominal pain; Epigastric; Additional info: Abd pain, R/O dissection TECHNIQUE: Imaging protocol: Computed tomographic angiography of the abdomen and pelvis with contrast material. 3D rendering (Not supervised by radiologist): MIP and/or 3D reconstructed images were created by the technologist. Radiation optimization: All CT scans at this facility use at least one of these dose optimization techniques: automated exposure control; mA and/or kV adjustment per patient size (includes targeted exams where dose is matched to clinical indication); or iterative reconstruction. Contrast material: ISO; Contrast volume: 100 ml; Contrast route: INTRAVENOUS (IV); COMPARISON: No relevant prior studies available. FINDINGS: Aorta: There is mild circumferential mural calcification and noncalcified atheromatous disease in the abdominal aorta resulting in less than 30% stenosis. Celiac trunk and mesenteric arteries: No occlusion or significant stenosis. Renal arteries: Calcifications seen at the origin of the left main renal artery resulting in less than 50% stenosis. Right iliac arteries: No occlusion or significant stenosis. Left iliac arteries: No occlusion or significant stenosis. Liver: No mass. Gallbladder and bile ducts: Unremarkable. No calcified stones. No ductal dilation. Pancreas: Unremarkable. No mass. No ductal dilation. Spleen: Evaluation of the spleen is limited due to heterogeneous phase of enhancement. Adrenal glands: Unremarkable. No mass. Kidneys and ureters: Unremarkable. No solid mass. No hydronephrosis. Stomach and bowel: There are cluster of multiple fluid distended small bowel loops measuring up to 3.0 cm with apparent 2 areas narrowing/transitional zone 1 on axial image 66 and the 2nd on axial image 70 followed by collapsed small bowel loops. Multiple thickened and hyperemic small bowel loops are seen. There is mesenteric stranding. Appendix: No evidence of appendicitis. Intraperitoneal space: There is small amount of free pelvic fluid. There is severe descending and sigmoid colon diverticulosis. Lymph nodes: Unremarkable. No enlarged lymph nodes. Urinary bladder: Unremarkable. No mass. Reproductive: Unremarkable as visualized. Bones/joints: Patient is status post total left hip replacement with grossly intact prosthesis. The patient is status post surgical fixation of the lower lumbar spine from L4 through S1 with grossly intact rods and screws. There is significant L5-S1 disc degenerative changes with grade 2 anterolisthesis of L5 on S1. Lower lumbar spine facet arthrosis seen. Soft tissues: Unremarkable. IMPRESSION: 1. No CT evidence of abdominal aortic aneurysm, dissection, ulcerated plaque or rupture. 2. CT findings suspicious for early small bowel obstruction with cluster of small bowel loops in the left abdomen with 2 areas of apparent narrowing/transition coupled with mesenteric stranding, edema and small amount of free fluid. Underlying internal hernia cannot be excluded. 3. Thickened and hyperemic small bowel loops could be reactive enteritis however underlying infectious etiology cannot be excluded. 4. Severe descending and sigmoid colon diverticulosis. Electronically signed by: Manjit Garner On 10/21/2020 06:09:30 AM
[2020-10-21] MEDS ORDERED: ASPI-161 PO (06:22)
[2020-10-21] MEDS ORDERED: KETO2CR EXT (06:22)
[2020-10-21] MEDS ORDERED: ZOLO100T PO (06:22)
[2020-10-21] MEDS ORDERED: ATOR80TA59 PO (06:22)
[2020-10-21 06:24] LABS: RSV AMPLIFICATION NEGATIVE (NEGATIVE)
[2020-10-21] MEDS ORDERED: LABETALOL 100MG/20ML VIAL IV STA (06:36)
[2020-10-21] MEDS ORDERED: NS 1,000 ML IV ONE (06:45)
[2020-10-21 06:49] VITALS: BP 191/111
[2020-10-21] MEDS ORDERED: HYDROMORPHONE HCL 0.5 MG/ 0.5 ML SYRINGE (J1170 PER 1) IV ONE (08:30)
[2020-10-21] MEDS ORDERED: MORPHINE 2 MG/ML 1ML VIAL (J2270) IV PRN (08:35)
[2020-10-21] MEDS: NS 1,000 ML IV SCH ×2 (08:40→16:19)
[2020-10-21 10:07] VITALS: BP 157/100
--- NOTE | 2020-10-21 10:22 | HPEPDOC ---
[facility] Medical History & Physical Date of Admission Oct 21, 2020 Date of Service: Oct 21, 2020 Attending Physician: Vani Conner MD History and Physical CHIEF COMPLAINT: sudden abdominal pain HISTORY OF PRESENT ILLNESS: Patient is a 75-year-old male with PMH of CAD, hypertension, hyperlipidemia, history of tobacco use, diverticulitis history, lumbar degenerative disc disease, GERD, depression who presented to [facility] emergency room with sudden onset of periumbilical pain beginning at approximately 2 AM. The patient states the pain woke him up from sleep, was severe, 10/10, sharp, constant and worsened throughout the morning.He has never had pain like this in the past, new to patient. He denies lifting or pulling anything new, fevers, chills, chest pain, vomiting, nausea, diarrhea, recent medication changes, recent diet changes. He admits to associated shortness of breath with the pain only. He came to the emergency room due to continued pain and symptoms mentioned above. In the ER, blood pressure was noted to be elevated with systolics [id number]. This was likely 2/2 to uncontrolled pain. He received a total of 16 mg IV morphine with minimal improvement. Pain was noted to be 10/10. He was saturating 97% on room air. Had normal labs include a lactic acid of 2.7 but all other labs are unremarkable. CTA of the chest showed an abdominal aortic aneurysm 4.2 cm without rupture or acute concern. CT abdomen and pelvis showed early small bowel obstruction with questionable enteritis. Surgery evaluated the patient at bedside and recommended medicine admit for small bowel obstruction, NG tube was placed and set to IS. Hospitalist will be admitting as primary for a bowel obst ruction with surgical consult. REVIEW OF SYSTEMS: Neg except what is mentioned above PAST MEDICAL HISTORY: coronary artery disease, hypertension, hyperlipidemia, history of tobacco use, diverticulitis history, lumbar degenerative disc disease, GERD, depression PAST SURGICAL HISTORY: Cardiac catheterization, back surgery, hip surgery, 2 hernia repairs FAMILY HISTORY: Father: healthy. at 67 y/o Mother: HTN. at 83 y/o SOCIAL HISTORY: Prior tobacco use history smoked 1 pack per week for over 20 years. Quit 40 years ago. Drinks 1 alcoholic beverage daily with dinner. Denies illicit drug use. He lives locally with his family. He does have a primary care provider who he follows with regularly and a insecticide expert Dr. Higuera. ALLERGIES: Please see below. HOME MEDICATIONS: Please see below. PHYSICAL EXAMINATION: VS: 164-214/110-120, 97.9F, 20, 96% on RA CONSTITUTIONAL: Uncomfortable in pain, AAO x 3 EYES: PERRLA, EOM intact HENT, MOUTH: Normocephalic, atraumatic, moist mucous membranes NECK: SUPPLE, no JVD, no lymphadenopathy, no carotid bruit CV: Regular rate and rhythm, S1S2 normal, no murmurs/rubs/gallops RESPIRATORY: Clear to auscultation bilaterally, no rales/rhonchi/wheezes GI: obese abd, tenderness around periumbilical, middle abd. BS hypoactive but positive in 4 quadrants, soft, nondistended, no rebound or guarding, no organomegaly : Deferred MUSCULOSKELETAL: Normal ROM. No cyanosis, clubbing, swelling, joint deformity, extremity edema INTEGUMENTARY: Intact, no rashes, no lesions, no erythema NEUROLOGIC: Cranial Nerves II-XII are intact, no focal deficits LABORATORY DATA: Please see below IMAGING: CTA chest: 1. Fusiform aneurysmal dilatation of the ascending aorta at 4.[address] evidence thoracic aortic dissection, ulcerated plaque or rupture. 3. Small sliding hiatal hernia. CT abd/pelvis with contrast : 1. No CT evidence of abdominal aortic aneurysm, dissection, ulcerated plaque or rupture. 2. CT findings suspicious for early small bowel obstruction with cluster of small bowel loops in the left abdomen with 2 areas of apparent narrowing/transition coupled with mesenteric stranding, edema and small amount of free fluid. Underlying internal hernia cannot be excluded. 3. Thickened and hyperemic small bowel loops could be reactive enteritis however underlying infectious etiology cannot be excluded. 4. Severe descending and sigmoid colon diverticulosis. ASSESSMENT: 75 y/o M with PMH of CAD, hypertension, hyperlipidemia, history of tobacco use, diverticulitis history, lumbar degenerative disc disease, GERD, depression admitted for further treatment of small bowel obstruction. PLAN: SBO -WBC wnl, afebrile, elevated LA, hx of prior abdominal surgeries -CT above -Severe pain persists despite 16 mg IV morphine, given additional 1 mg IV dilaudid in ER -C/w morphine Q4 Hrs based on pain scale PRN, NG tube with IS, NPO, IVFs at 125 cc/hr (watch/monitor for s/s of fluid overload with hx of CAD) -Monitor LA levels closely -Discussed case with Dr. Kemp's service who is consulted, watching closely. Hypertensive urgency likely 2/2 to uncontrolled pain from SBO -Improving with additional IV pain meds -Monitor closely -Holding off on home PO meds for now CAD -Stable, denies chest pain -Holding home PO for now Hyperlipidemia -Hold PO statin for now Chronic pain 2/2 to lumbar degenerative disc disease -Stable -Resume tylenol PRN whan able to take PO Depression -Stable -Holding PO sertraline GERD/GI px -PPI GERD DVT px -Holding AC in event patient needs surgery in next 12-24H, discussed with surgery. If not taking by 10/22/20, start AC. Currently teds, SCD ordered DISPOSITION: Admitted under medicine service, surgery consulted. Plan is home at discharge. Vital Signs Vital Signs Date Time Temp Pulse Resp B/P (MAP) Pulse Ox O2 Delivery O2 Flow Rate FiO2 10/21/20 09:46 64 95 10/21/20 09:45 18 163/96 (118) Room Air 10/21/20 06:30 97.6 Laboratory Data Labs 24H Laboratory Tests 2 10/21/20 04:53: Immature Granulocyte % (Auto) 0.3, Neutrophils (%) (Auto) 70.1H, Lymphocytes (%) (Auto) 18.8L, Monocytes (%) (Auto) 7.0, Eosinophils (%) (Auto) 2.8, Basophils (%) (Auto) 1.0, Neutrophils # (Auto) 4.7, Lymphocytes # (Auto) 1.3L, Monocytes # (Auto) 0.5, Eosinophils # (Auto) 0.2, Basophils # (Auto) 0.1, Nucleated Red Blood Cells % (auto) 0.0, Prothrombin Time 12.4, Prothromb Time International Ratio 0.91, Activated Partial Thromboplast Time 27.8, Lactic Acid Level 2.7*H, Total Bilirubin 0.4, Direct Bilirubin 0.1, Aspartate Amino Transf (AST/SGOT) 15, Alanine Aminotransferase (ALT/SGPT) 22, Alkaline Phosphatase 66, Total Creatine Kinase 107, Creatine Kinase MB 1.2, Creatine Kinase MB Relative Index 1.12, Troponin I < 0.02, Total Protein 8.0, Albumin 4.3, Albumin/Globulin Ratio 1.2, Lipase 98 10/21/20 05:39: Coronavirus (COVID-19)(PCR) NEGATIVE, Influenza Type A (RT-PCR) NEGATIVE, Influenza Type B (RT-PCR) NEGATIVE, Respiratory Syncytial Virus (PCR) NEGATIVE 10/21/20 09:13: CBC/BMP Laboratory Tests 10/21/20 04:53 Home Medications Scheduled Acetaminophen (Acetaminophen) 500 Mg Tablet, 1,000 MG PO DAILY Aspirin (Aspirin EC) 81 Mg Tablet.dr, 81 MG PO DAILY Atorvastatin Calcium (Atorvastatin Calcium) 80 Mg Tablet, 80 MG PO DAILY Enalapril Maleate (Enalapril Maleate) 5 Mg Tab, 5 MG PO DAILY Fenofibrate (Fenofibrate) 54 Mg Tab, 54 MG PO DAILY Omeprazole (Omeprazole) 20 Mg Cap, 20 MG PO DAILY Sertraline Hcl (Zoloft) 100 Mg Tablet, 100 MG PO DAILY Scheduled PRN Ketoconazole (Ketoconazole) 15 Gm Cream..g., 1 DOSE EXT BID PRN for RASH Allergies Coded Allergies: Penicillins (Verified Allergy, Intermediate, HIVES, 05/24/20) ciprofloxacin (Verified Allergy, Intermediate, HIVES, 05/24/20) raspberry (Verified Allergy, Intermediate, HIVES, 05/24/20) A-FIB/CHADSVASC A-FIB History Current/History of A-Fib/PAF?: No Current PO Anticoag Therapy: No Age/Risk Factor Scoring CHADSVASC: CHADSVASC Response (Comments) Value Age Risk Factor Age 65-74 years old 1 Gender Risk Factor Male 0 Hx of CHF No 0 Hx of HTN Yes 1 Hx of Stroke/TIA/or VTE No 0 Hx of Diabetes No 0 Hx of Vascular Disease No 0 Total 2 Treatment Treatment ordered: NONE Other anticoagulant ordered: scd Vani Conner MD Oct 21, 2020 10:22
--- NOTE | 2020-10-21 11:09 | REP ---
INDICATION: confirmation of NG tube placement. COMPARISON: 05/11/2020. TECHNIQUE: SINGLE PORTABLE AP VIEW OF THE CHEST WAS PERFORMED. FINDINGS: Nasogastric tube is visualized, the distal end and side port are appropriately positioned in the stomach. No infiltrate is seen in either lung. The heart is not enlarged. The mediastinal silhouette is unremarkable. IMPRESSION: NO ACUTE PULMONARY DISEASE.Nasogastric tube in good position. <Electronically signed by Leroy Auguste > 10/21/20 1102
[2020-10-21] MEDS: PANTOPRAZOLE 40MG VIAL (C9113 PER 1) IV SCH (12:01)
[2020-10-21 14:00] VITALS: BP 119/87
[2020-10-21 22:00] VITALS: BP 135/85
[2020-10-22] MEDS: ONDANSETRON 4MG/2ML VIAL IV PRN (01:09)
[2020-10-22] MEDS: NS 1,000 ML IV SCH ×3 (01:16→16:35)
--- NOTE | 2020-10-22 01:35 | ECGEPIP ---
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
[2020-10-22 06:00] VITALS: BP 139/81
[2020-10-22 06:11] LABS: HEMATOCRIT 43.3 % (42.0-52.0); HEMOGLOBIN 14.3 g/dl (13.5-17.5); MEAN CORPUSCULAR HEMOGLOBIN 31.2 pg (27.0-33.0); MEAN CORPUSCULAR VOLUME 94.3 fl (80.0-96.0); PLATELET COUNT, AUTOMATED 237 10^3/uL (150-450); RED BLOOD COUNT 4.59 10^6/uL (4.30-6.10); WHITE BLOOD COUNT 9.8 10^3/uL (4.0-10.0)
[2020-10-22 06:39] LABS: ALBUMIN 3.1 GM/DL (3.2-5.2); ALT/SGPT 15 U/L (12-78); BILIRUBIN,TOTAL 0.4 MG/DL (0.2-1.0); BLOOD UREA NITROGEN 24 MG/DL (7-18); CARBON DIOXIDE LEVEL 27 MEQ/L (21-32); CHLORIDE LEVEL 110 MEQ/L (98-107); CREATININE FOR GFR 0.96 MG/DL (0.70-1.30); GLOMERULAR FILTRATION RATE > 60.0 (>42); GLUCOSE, FASTING 152 MG/DL (70-100); POTASSIUM SERUM 4.1 MEQ/L (3.5-5.1); SODIUM LEVEL 145 MEQ/L (136-145)
--- NOTE | 2020-10-22 09:32 | CR ---
CONSULTATION DATE: 10/21/2020 HISTORY OF PRESENT ILLNESS: The patient is a 75-year-old male who has had an 8 to 12 hour history of abdominal pain developed in the periumbilical area, quite severe in nature, mostly colicky, was described as constant but with waves of pain, never had this in the past, never had a small bowel obstruction in the past, however has had some bilateral inguinal hernia repairs in the past. No other abdominal surgery. Does have a history of diverticulitis as well. He had nausea without vomiting. He has had a history of aneurysm and thus came to the Emergency Room for further evaluation. The patient went through a workup which included CT angiogram, CT of the abdomen and pelvis which showed an early small bowel obstruction with possible enteritis, NG-tube was placed and the patient since that time has had some decreased abdominal distention but states that cramps are slightly better. When I viewed him later in the day, he states that his abdominal pain substantially improved and was having much less pain and discomfort after his initial visit this morning. PAST MEDICAL HISTORY: History of coronary artery disease, hypertension, hyperlipidemia, history of tobacco abuse, history of diverticulitis, history of lumbar degenerative disc disease, history of gastroesophageal reflux, history of depression, history of cardiac catheterization, history of back surgery, history of back surgery, history of hip surgery, history of hernia repair. History of smoking. History of hypercholesterolemia. MEDICATIONS: 1. Tylenol. 2. Aspirin. 3. Atorvastatin. 4. Enalapril. 5. Fenofibrate. 6. Omeprazole. 7. Sertraline. PHYSICAL EXAMINATION: A 75-year-old male who looks stated age. HEENT is unremarkable. Neck is supple without adenopathy. When I am talking to him while he was in the Emergency Room bed, he looks rather comfortable, however he does have these intermittent twinges/spasms of pain that come and go during our discussion but between those times he seems more comfortable and able to finish a sentence without distress. His lungs are clear anteriorly. Heart is regular. Abdomen is soft on the right hand side, distended and mildly tender on the left hand side without significant guarding, rebound, or peritoneal signs. Extremities are warm and well-perfused. IMPRESSION/PLAN: Patient has a small bowel obstruction. However, he does have some minimal improvement with the NG-tube already. He seems comfortable between the spasms and thus his NG-tube was kept to suction and then later on in the day he was reevaluated and indeed had progression of the improvement that I saw earlier with decreased abdominal pain and discomfort not requiring as much narcotics, was only uncomfortable in not having the pains as he was having earlier and also had decreased distention. His NG-tube still was not putting all out that much but clinically he has significant improvement. He seems to have a partial obstruction that seems to be starting to improve at this time. Will keep the NG-tube in and will watch him overnight. I do feel that his elevated lactic acid that he presented with initially is concerning and then will have to watch his abdominal exam closely but given his improvement, suggests that follow-up evaluations should show improvement and follow the improvement seen on clinical exam. Otherwise, we will follow the patient with you.
--- NOTE | 2020-10-22 10:14 | IPNPDOC ---
Text Note Date of Service The patient was seen on 10/22/20. NOTE Gen. surgery. Dr. Kemp The patient is a 75-year-old male admitted 10/21/20 with SBO. NG tube to [facility]. This morning, the patient is resting comfortably in bed and states his pain has improved. Reports feeling a little less bloated. Reports tiny amount of flatus but no BM. Denies nausea or vomiting. Afebrile. VSS Awake and alert sitting up in bed, NAD. NG tube in place. Lungs clear to auscultation S1-S2 regular rate and rhythm Abdomen. Still somewhat distended but soft, some mild tenderness on the left side but currently no grimacing, guarding, rebound. No peritoneal signs. Extremities with no edema. No leukocytosis. 620 mL and NG tube 10/21, nursing reports 475ml overnight. Assessment/plan SBO. Patient is reviewed and examined as per Dr. Kemp this morning. The patient does appear to have some improvement overnight with decreased pain, a little less distended and small amount of flatus. For now, plan to continue with nothing by mouth, NGT LIS. Patient has not used any pain medication since last evening. Had Zofran at approximately 1 AM, the patient states he had some gagging but no vomiting and reports a lot of postnasal drip. Denies nausea currently. IVF. Monitor. VS,Fishbone, I+O VS, Fishbone, I+O Laboratory Tests 10/22/20 05:46 Vital Signs Date Time Temp Pulse Resp B/P (MAP) Pulse Ox O2 Delivery O2 Flow Rate FiO2 10/22/20 06:00 98.4 78 20 139/81 (100) 94 10/21/20 20:19 Room Air I&O- Last 24 Hours up to 6 AM 10/22/20 06:00 Intake Total 3635 ml Output Total 2520 ml Balance 1115 ml Davida Browning Oct 22, 2020 10:14
[2020-10-22] MEDS: PANTOPRAZOLE 40MG VIAL (C9113 PER 1) IV SCH (12:02)
[2020-10-22 14:00] VITALS: BP 130/94
--- NOTE | 2020-10-22 14:58 | IPNPDOC ---
Date Seen The patient was seen on 10/22/20. Progress Note SUBJECTIVE: Has required little pain medication since arriving to floor. Not passing flatus or had BM yet. Pain improved, VS stable. Per surgery, c/w current treatment for now. Denies SOB, chest pain, fevers, chills. OBJECTIVE: PHYSICAL EXAMINATION: VS: Please see below CONSTITUTIONAL: NAD resting in bed , AAO x 3 EYES: PERRLA, EOM intact HENT, MOUTH: Normocephalic, atraumatic, moist mucous membranes NECK: SUPPLE, no JVD, no lymphadenopathy, no carotid bruit CV: Regular rate and rhythm, S1S2 normal, no murmurs/rubs/gallops RESPIRATORY: Clear to auscultation bilaterally, no rales/rhonchi/wheezes GI: obese abd, nontender. BS hypoactive but positive in 4 quadrants, soft, nondistended, no rebound or guarding, no organomegaly : Deferred MUSCULOSKELETAL: Normal ROM. No cyanosis, clubbing, swelling, joint deformity, extremity edema INTEGUMENTARY: Intact, no rashes, no lesions, no erythema NEUROLOGIC: Cranial Nerves II-XII are intact, no focal deficits LABORATORY DATA: Please see below IMAGING: CTA chest: 1. Fusiform aneurysmal dilatation of the ascending aorta at 4.[address] evidence thoracic aortic dissection, ulcerated plaque or rupture. 3. Small sliding hiatal hernia. CT abd/pelvis with contrast : 1. No CT evidence of abdominal aortic aneurysm, dissection, ulcerated plaque or rupture. 2. CT findings suspicious for early small bowel obstruction with cluster of small bowel loops in the left abdomen with 2 areas of apparent narrowing/transition coupled with mesenteric stranding, edema and small amount of free fluid. Underlying internal hernia cannot be excluded. 3. Thickened and hyperemic small bowel loops could be reactive enteritis however underlying infectious etiology cannot be excluded. 4. Severe descending and sigmoid colon diverticulosis. ASSESSMENT: 75 y/o M with PMH of CAD, hypertension, hyperlipidemia, history of tobacco use, diverticulitis history, lumbar degenerative disc disease, GERD, depression admitted for further treatment of small bowel obstruction. PLAN: SBO -620 mL out of NG tube 10/21/20, improved abd discomfort, afebrile. WBC wnl -LA wnl this AM -CT above -C/w NG tube with IS, NPO, IVFs at 125 cc/hr (watch/monitor for s/s of fluid overload with hx of CAD) -General surgery following HTN -Better controlled -Monitoring closely while not getting PO home med CAD -Stable, denies chest pain -Holding home PO for now Hyperlipidemia -Hold PO statin for now Chronic pain 2/2 to lumbar degenerative disc disease -Stable -Resume tylenol PRN whan able to take PO Depression -Stable -Holding PO sertraline GERD/GI px -PPI GERD DVT px -Heparin sc DISPOSITION: Admitted under medicine service, surgery consulted. C/w TX above. Plan is home at discharge. VS, I&O, 24H, Fishbone Vital Signs/I&O Vital Signs Date Time Temp Pulse Resp B/P (MAP) Pulse Ox O2 Delivery O2 Flow Rate FiO2 10/22/20 14:00 98.8 78 18 130/94 (106) 96 Room Air l I&O- Last 24 Hours up to 6 AM 10/22/20 06:00 Intake Total 3635 ml Output Total 2520 ml Balance 1115 ml Laboratory Data 24H LABS Laboratory Tests 2 10/21/20 14:57: Lactic Acid Level 2.2*H 10/21/20 19:12: Lactic Acid Followup at 4 Hours 1.9 10/22/20 05:46: Nucleated Red Blood Cells % (auto) 0.0, Anion Gap 8, Glomerular Filtration Rate > 60.0, Calcium Level 8.0L, Total Bilirubin 0.4, Aspartate Amino Transf (AST/SGOT) 10, Alanine Aminotransferase (ALT/SGPT) 15, Alkaline Phosphatase 47, Total Protein 6.0#L, Albumin 3.1#L, Albumin/Globulin Ratio 1.1 CBC/BMP Laboratory Tests 10/22/20 05:46 Current Medications Current Medications Medications (Trade) Dose Ordered Sig/Armen Route PRN Reason Start Time Stop Time Status Last Admin Dose Admin Home Med (Med Rec Complete!) ASDIRECTED XX 10/21/20 06:25 10/21/20 06:24 DC Labetalol HCl (Normodyne, Trandate) 20 mg STAT STAT IV 10/21/20 06:36 10/21/20 06:37 DC 10/21/20 06:49 Morphine Sulfate (Morphine Sulfate Inj) 2 mg Q4H PRN IV MODERATE PAIN (PS 5-7) 10/21/20 08:35 10/21/20 20:09 Morphine Sulfate (Morphine Sulfate Inj) 4 mg Q30M PRN IV SEVERE PAIN (PS 8-10) 10/21/20 05:00 10/21/20 05:38 DC 10/21/20 05:38 Morphine Sulfate (Morphine Sulfate Inj) 4 mg Q30M PRN IV SEVERE PAIN (PS 8-10) 10/21/20 06:15 10/21/20 06:50 DC 10/21/20 06:49 Morphine Sulfate (Morphine Sulfate Inj) 4 mg Q4HP PRN IV SEVERE PAIN (PS 8-10) 10/21/20 08:35 10/21/20 14:10 Ondansetron HCl (ZOFRAN INJection) 4 mg Q6HP PRN IV NAUSEA OR VOMITING 10/22/20 00:50 10/22/20 01:09 Pantoprazole Sodium (Protonix) 40 mg Q24H IV 10/21/20 11:00 10/22/20 12:02 Sodium Chloride 1,000 ml @ 125 mls/hr Q8H IV 10/21/20 08:35 10/22/20 09:27 Allergies Coded Allergies: Penicillins (Verified Allergy, Intermediate, HIVES, 05/24/20) ciprofloxacin (Verified Allergy, Intermediate, HIVES, 05/24/20) raspberry (Verified Allergy, Intermediate, HIVES, 05/24/20) Vani Conner MD Oct 22, 2020 14:58
[2020-10-22 22:00] VITALS: BP 151/86
[2020-10-23] MEDS: NS 1,000 ML IV SCH ×3 (03:05→19:53)
[2020-10-23 06:00] VITALS: BP 158/82
[2020-10-23 06:36] LABS: HEMATOCRIT 35.8 % (42.0-52.0); MEAN CORPUSCULAR HEMOGLOBIN 32.2 pg (27.0-33.0); MEAN CORPUSCULAR HGB CONC 33.2 g/dl (32.0-36.5); MEAN CORPUSCULAR VOLUME 96.8 fl (80.0-96.0); PLATELET COUNT, AUTOMATED 162 10^3/uL (150-450); WHITE BLOOD COUNT 6.2 10^3/uL (4.0-10.0)
[2020-10-23 06:40] LABS: HEMOGLOBIN 11.9 g/dl (13.5-17.5)
[2020-10-23 06:56] LABS: ALBUMIN 2.8 GM/DL (3.2-5.2); ALT/SGPT 11 U/L (12-78); BILIRUBIN,TOTAL 0.5 MG/DL (0.2-1.0); BLOOD UREA NITROGEN 21 MG/DL (7-18); CALCIUM LEVEL 7.8 MG/DL (8.8-10.2); CARBON DIOXIDE LEVEL 27 MEQ/L (21-32); CHLORIDE LEVEL 112 MEQ/L (98-107); GLOMERULAR FILTRATION RATE > 60.0 (>42); GLUCOSE, FASTING 105 MG/DL (70-100); POTASSIUM SERUM 3.4 MEQ/L (3.5-5.1); SODIUM LEVEL 145 MEQ/L (136-145); TOTAL PROTEIN 5.4 GM/DL (6.4-8.2)
[2020-10-23] MEDS: KCL 10MEQ/100ML SWI (KRUN) 10 MEQ in IV 1 EA IV SCH ×3 (09:23→12:41)
[2020-10-23] MEDS: PANTOPRAZOLE 40MG VIAL (C9113 PER 1) IV SCH (09:24)
[2020-10-23 09:45] VITALS: BP 142/76
[2020-10-23 14:00] VITALS: BP 137/75
[2020-10-23] MEDS ORDERED: CHLORASEPTIC SPRAY MT PRN (15:50)
--- NOTE | 2020-10-23 17:33 | IPNPDOC ---
Date Seen The patient was seen on 10/23/20. Progress Note SUBJECTIVE: Requiring little pain med, BM this AM. Still having abdominal discomfort on exam, 5/10. Per surgery, c/w current treatment for now. Denies SOB, chest pain, fevers, chills. OBJECTIVE: PHYSICAL EXAMINATION: VS: Please see below CONSTITUTIONAL: NAD resting in bed , AAO x 3 EYES: PERRLA, EOM intact HENT, MOUTH: Normocephalic, atraumatic, moist mucous membranes NECK: SUPPLE, no JVD, no lymphadenopathy, no carotid bruit CV: Regular rate and rhythm, S1S2 normal, no murmurs/rubs/gallops RESPIRATORY: Clear to auscultation bilaterally, no rales/rhonchi/wheezes GI: obese abd, tender to palpation of left and right lower quadrants, 5/10 on palpation. BS hypoactive but positive in 4 quadrants, soft, nondistended, no rebound or guarding, no organomegaly : Deferred MUSCULOSKELETAL: Normal ROM. No cyanosis, clubbing, swelling, joint deformity, extremity edema INTEGUMENTARY: Intact, no rashes, no lesions, no erythema NEUROLOGIC: Cranial Nerves II-XII are intact, no focal deficits LABORATORY DATA: Please see below IMAGING: CTA chest: 1. Fusiform aneurysmal dilatation of the ascending aorta at 4.[address] evidence thoracic aortic dissection, ulcerated plaque or rupture. 3. Small sliding hiatal hernia. CT abd/pelvis with contrast : 1. No CT evidence of abdominal aortic aneurysm, dissection, ulcerated plaque or rupture. 2. CT findings suspicious for early small bowel obstruction with cluster of small bowel loops in the left abdomen with 2 areas of apparent narrowing/transition coupled with mesenteric stranding, edema and small amount of free fluid. Underlying internal hernia cannot be excluded. 3. Thickened and hyperemic small bowel loops could be reactive enteritis however underlying infectious etiology cannot be excluded. 4. Severe descending and sigmoid colon diverticulosis. ASSESSMENT: 75 y/o M with PMH of CAD, hypertension, hyperlipidemia, history of tobacco use, diverticulitis history, lumbar degenerative disc disease, GERD, depression admitted for further treatment of small bowel obstruction. PLAN: SBO -increase of NG tube 10/22-,incr abd discomfort, afebrile. WBC wnl -CT above -BM this AM -Per surgery, c/w NG tube with IS, NPO, IVFs at 100 cc/hr (watch/monitor for s/s of fluid overload with hx of CAD) -General surgery following HTN -Controlled -Monitoring closely while not getting PO home med CAD -Stable, denies chest pain -Holding home PO for now Hyperlipidemia -Hold PO statin for now Chronic pain 2/2 to lumbar degenerative disc disease -Stable -Resume tylenol PRN whan able to take PO Depression -Stable -Holding PO sertraline GERD/GI px -PPI DVT px -Heparin sc DISPOSITION: Admitted under medicine service, surgery consulted. C/w TX above. Plan is home at discharge. VS, I&O, 24H, Fishbone Vital Signs/I&O Vital Signs Date Time Temp Pulse Resp B/P (MAP) Pulse Ox O2 Delivery O2 Flow Rate FiO2 10/23/20 14:00 98.6 62 20 137/75 (95) 98 Room Air I&O- Last 24 Hours up to 6 AM 10/23/20 06:00 Intake Total 3000 ml Output Total 1250 ml Balance 1750 ml Laboratory Data 24H LABS Laboratory Tests 2 10/23/20 05:32: Nucleated Red Blood Cells % (auto) 0.0, Anion Gap 6L, Glomerular Filtration Rate > 60.0, Calcium Level 7.8L, Total Bilirubin 0.5, Aspartate Amino Transf (AST/SGOT) 13, Alanine Aminotransferase (ALT/SGPT) 11L, Alkaline Phosphatase 38L, Total Protein 5.4L, Albumin 2.8L, Albumin/Globulin Ratio 1.1 CBC/BMP Laboratory Tests 10/23/20 05:32 Current Medications Current Medications Medications (Trade) Dose Ordered Sig/Armen Route PRN Reason Start Time Stop Time Status Last Admin Dose Admin Home Med (Med Rec Complete!) ASDIRECTED XX 10/21/20 06:25 10/21/20 06:24 DC Labetalol HCl (Normodyne, Trandate) 20 mg STAT STAT IV 10/21/20 06:36 10/21/20 06:37 DC 10/21/20 06:49 Morphine Sulfate (Morphine Sulfate Inj) 2 mg Q4H PRN IV MODERATE PAIN (PS 5-7) 10/21/20 08:35 10/21/20 20:09 Morphine Sulfate (Morphine Sulfate Inj) 4 mg Q30M PRN IV SEVERE PAIN (PS 8-10) 10/21/20 05:00 10/21/20 05:38 DC 10/21/20 05:38 Morphine Sulfate (Morphine Sulfate Inj) 4 mg Q30M PRN IV SEVERE PAIN (PS 8-10) 10/21/20 06:15 10/21/20 06:50 DC 10/21/20 06:49 Morphine Sulfate (Morphine Sulfate Inj) 4 mg Q4HP PRN IV SEVERE PAIN (PS 8-10) 10/21/20 08:35 10/21/20 14:10 Ondansetron HCl (ZOFRAN INJection) 4 mg Q6HP PRN IV NAUSEA OR VOMITING 10/22/20 00:50 10/22/20 01:09 Pantoprazole Sodium (Protonix) 40 mg Q24H IV 10/21/20 11:00 10/23/20 09:24 Phenol (Chloraseptic [place]) 1 spray Q2HP PRN MT SORE THROAT 10/23/20 15:50 10/23/20 16:08 Potassium Chloride 10 meq/ IV Miscellaneous Supplies 100 ml @ 100 mls/hr Q1H IV 10/23/20 09:00 10/23/20 11:59 DC 10/23/20 12:41 Sodium Chloride 1,000 ml @ 125 mls/hr Q8H IV 10/21/20 08:35 10/23/20 11:40 Allergies Coded Allergies: Penicillins (Verified Allergy, Intermediate, HIVES, 05/24/20) ciprofloxacin (Verified Allergy, Intermediate, HIVES, 05/24/20) raspberry (Verified Allergy, Intermediate, HIVES, 05/24/20) Vani Conner MD Oct 23, 2020 17:33
--- NOTE | 2020-10-23 19:25 | IPN ---
PROGRESS NOTE DATE: 10/23/2020 HISTORY: Patient is a 75-year-old man who was admitted on the morning of October 21, 2020 with abdominal pain with a CT suggesting a bowel obstruction. He has a nasogastric (NG) tube in place and has remained nothing by mouth. He reports having had a bowel movement today for the first time since admission. Vital signs show that he has been afebrile over the past 24 hours. His pulse is in the 60s and 70s and his blood pressure is normal. Room air oxygen saturation is in the mid to upper 90s. Intake and output show that yesterday he had 3000 in with 750 out; 400 was NG output and 50 was urine output. Today, he has a greater output from his NG tube noted. His urine output remains adequate. PHYSICAL EXAMINATION: Patient is lying quietly in the hospital bed. He has some bruising on his left hand from a recent attempt at an intravenous (IV) placement. He appears alert and oriented. Skin is warm and dry. Heart exam shows a regular rhythm. The lungs are clear. The abdomen shows that his abdomen may be slightly full. He does have some bowel sounds present. There is no tympany to percussion. The abdomen is soft, but he has a little bit of tenderness on deeper palpation in the left mid and upper abdomen. LABORATORY STUDIES: Laboratory studies today show a white count of 6, hemoglobin 12, hematocrit 36 and a platelet count of 162,000. Chemistry profile shows a sodium of 145, potassium 3.4, chloride 112, CO2 27, BUN 21, creatinine 0.7, glucose 105. IMAGING: I reviewed patient's CT scan, which was actually done as a CT angiogram on October 21, 2020. He does appear to have a fairly abrupt transition in the left mid to upper abdomen of small bowel. There is definitely some edematous and slightly dilated small bowel in the left mid abdomen. IMPRESSION: Small bowel obstruction, likely secondary to adhesions versus internal hernia. PLAN: Patient will continue with his NG tube in place. He has had a small bowel movement and hopefully, this is a sign he may have some return of bowel function. He has not had any flatus yet. We will continue his intravenous fluid. We will continue to monitor for evidence of resolution of his obstruction. SARA
[2020-10-23 22:00] VITALS: BP 144/71
[2020-10-24] MEDS: NS 1,000 ML IV SCH (03:47)
[2020-10-24 06:00] VITALS: BP 153/78
[2020-10-24 06:25] LABS: HEMATOCRIT 35.4 % (42.0-52.0); HEMOGLOBIN 11.5 g/dl (13.5-17.5); MEAN CORPUSCULAR HEMOGLOBIN 31.6 pg (27.0-33.0); MEAN CORPUSCULAR HGB CONC 32.5 g/dl (32.0-36.5); MEAN CORPUSCULAR VOLUME 97.3 fl (80.0-96.0); PLATELET COUNT, AUTOMATED 165 10^3/uL (150-450); RED BLOOD COUNT 3.64 10^6/uL (4.30-6.10); WHITE BLOOD COUNT 6.2 10^3/uL (4.0-10.0)
[2020-10-24 06:58] LABS: ALBUMIN 2.7 GM/DL (3.2-5.2); ALT/SGPT 11 U/L (12-78); BILIRUBIN,TOTAL 0.5 MG/DL (0.2-1.0); BLOOD UREA NITROGEN 16 MG/DL (7-18); CALCIUM LEVEL 7.9 MG/DL (8.8-10.2); CARBON DIOXIDE LEVEL 25 MEQ/L (21-32); CHLORIDE LEVEL 111 MEQ/L (98-107); CREATININE FOR GFR 0.55 MG/DL (0.70-1.30); GLOMERULAR FILTRATION RATE > 60.0 (>42); GLUCOSE, FASTING 65 MG/DL (70-100); POTASSIUM SERUM 3.7 MEQ/L (3.5-5.1); SODIUM LEVEL 144 MEQ/L (136-145); TOTAL PROTEIN 5.6 GM/DL (6.4-8.2)
--- NOTE | 2020-10-24 09:02 | REP ---
INDICATION: SBO. COMPARISON: Comparison is made with images from CT study October 21, 2020.. TECHNIQUE: Two views of the abdomen, obtained supine. FINDINGS: A nasogastric tube is seen terminating in the gastric fundus. Patient is status post lumbar spine fusion and left hip arthroplasty. There are mildly dilated central abdominal small bowel loops visible on today's radiograph consistent with small bowel obstruction. The caliber of the loops is similar to that seen on the CT study. There is no visible free air. There is a paucity of distal gas. IMPRESSION: Small-bowel obstruction pattern persists. NG tube in the gastric fundus. <Electronically signed by Brody Crockett > 10/24/20 [id number]
[2020-10-24] MEDS: PANTOPRAZOLE 40MG VIAL (C9113 PER 1) IV SCH (10:19)
[2020-10-24] MEDS: D5W/0.9% SODIUM CHLORIDE 1,000 ML IV SCH ×2 (10:29→18:39)
[2020-10-24 14:00] VITALS: BP 147/77
--- NOTE | 2020-10-24 15:29 | IPNPDOC ---
Date Seen The patient was seen on 10/24/20. Progress Note SUBJECTIVE: Abdominal discomfort improved, not passing much flatus but had 1 large BM with a small BM later in day on 10/23. 1750 out of gastric tube /24H. KUB today shows persistent SBO. Switched to D5W NSS IVFs due to hypoglycemia. F/u surgery recommendations. Denies SOB, chest pain, fevers, chills. OBJECTIVE: PHYSICAL EXAMINATION: VS: Please see below CONSTITUTIONAL: NAD resting in bed , AAO x 3 EYES: PERRLA, EOM intact HENT, MOUTH: Normocephalic, atraumatic, moist mucous membranes NECK: SUPPLE, no JVD, no lymphadenopathy, no carotid bruit CV: Regular rate and rhythm, S1S2 normal, no murmurs/rubs/gallops RESPIRATORY: Clear to auscultation bilaterally, no rales/rhonchi/wheezes GI: obese abd, nontender to palpation of left and right lower quadrants. BS hypoactive but positive in 4 quadrants, soft, nondistended, no rebound or guarding, no organomegaly : Deferred MUSCULOSKELETAL: Normal ROM. No cyanosis, clubbing, swelling, joint deformity, extremity edema INTEGUMENTARY: Intact, no rashes, no lesions, no erythema NEUROLOGIC: Cranial Nerves II-XII are intact, no focal deficits LABORATORY DATA: Please see below IMAGING: KUB 10/24/20: Small-bowel obstruction pattern persists. NG tube in the gastric fundus. CTA chest: 1. Fusiform aneurysmal dilatation of the ascending aorta at 4.[address] evidence thoracic aortic dissection, ulcerated plaque or rupture. 3. Small sliding hiatal hernia. CT abd/pelvis with contrast : 1. No CT evidence of abdominal aortic aneurysm, dissection, ulcerated plaque or rupture. 2. CT findings suspicious for early small bowel obstruction with cluster of small bowel loops in the left abdomen with 2 areas of apparent narro wing/transition coupled with mesenteric stranding, edema and small amount of free fluid. Underlying internal hernia cannot be excluded. 3. Thickened and hyperemic small bowel loops could be reactive enteritis however underlying infectious etiology cannot be excluded. 4. Severe descending and sigmoid colon diverticulosis. ASSESSMENT: 75 y/o M with PMH of CAD, hypertension, hyperlipidemia, history of tobacco use, diverticulitis history, lumbar degenerative disc disease, GERD, depression admitted for further treatment of small bowel obstruction. PLAN: SBO -1750 mL/24H out of NG tube, improved abd discomfort, afebrile, WBC wnl -CT above -Had 1 large and one small BM 10/23/20 per patient -KUB above -F/u surgery recommendations -For now c/w NG tube with IS, NPO, IVFs at 100 cc/hr (watch/monitor for s/s of fluid overload with hx of CAD) Hypoglycemia likely 2/2 to decreased PO intake -D5W at 125 cc/hr -Monitor closely while NPO HTN -Controlled -Monitoring closely while not getting PO home med CAD -Stable, denies chest pain -Holding home PO for now Hyperlipidemia -Hold PO statin for now Chronic pain 2/2 to lumbar degenerative disc disease -Stable -Resume tylenol PRN whan able to take PO Depression -Stable -Holding PO sertraline GERD/GI px -PPI DVT px -Heparin sc DISPOSITION: Admitted under medicine service, surgery consulted. C/w TX above. Plan is home at discharge. VS, I&O, 24H, [place] Vital Signs/I&O Vital Signs Date Time Temp Pulse Resp B/P (MAP) Pulse Ox O2 Delivery O2 Flow Rate FiO2 10/24/20 14:00 97.4 58 20 147/77 (100) 96 10/24/20 06:00 Room Air I&O- Last 24 Hours up to 6 AM 10/24/20 06:00 Intake Total 1500 ml Output Total 3000 ml Balance -1500 ml Laboratory Data 24H LABS Laboratory Tests 2 10/24/20 05:35: Nucleated Red Blood Cells % (auto) 0.0, Anion Gap 8, Glomerular Filtration Rate > 60.0, Calcium Level 7.9L, Total Bilirubin 0.5, Aspartate Amino Transf (AST/SGOT) 15, Alanine Aminotransferase (ALT/SGPT) 11L, Alkaline Phosphatase 41L, Total Protein 5.6L, Albumin 2.7L, Albumin/Globulin Ratio 0.9 CBC/BMP Laboratory Tests 10/24/20 05:35 Current Medications Current Medications Medications (Trade) Dose Ordered Sig/Armen Route PRN Reason Start Time Stop Time Status Last Admin Dose Admin Dextrose/Sodium Chloride 1,000 ml @ 125 mls/hr Q8H IV 10/24/20 10:20 10/24/20 10:29 Home Med (Med Rec Complete!) ASDIRECTED XX 10/21/20 06:25 10/21/20 06:24 DC Labetalol HCl (Normodyne, Trandate) 20 mg STAT STAT IV 10/21/20 06:36 10/21/20 06:37 DC 10/21/20 06:49 Morphine Sulfate (Morphine Sulfate Inj) 2 mg Q4H PRN IV MODERATE PAIN (PS 5-7) 10/21/20 08:35 10/21/20 20:09 Morphine Sulfate (Morphine Sulfate Inj) 4 mg Q30M PRN IV SEVERE PAIN (PS 8-10) 10/21/20 05:00 10/21/20 05:38 DC 10/21/20 05:38 Morphine Sulfate (Morphine Sulfate Inj) 4 mg Q30M PRN IV SEVERE PAIN (PS 8-10) 10/21/20 06:15 10/21/20 06:50 DC 10/21/20 06:49 Morphine Sulfate (Morphine Sulfate Inj) 4 mg Q4HP PRN IV SEVERE PAIN (PS 8-10) 10/21/20 08:35 10/21/20 14:10 Ondansetron HCl (ZOFRAN INJection) 4 mg Q6HP PRN IV NAUSEA OR VOMITING 10/22/20 00:50 10/22/20 01:09 Pantoprazole Sodium (Protonix) 40 mg Q24H IV 10/21/20 11:00 10/24/20 10:19 Phenol (Chloraseptic [place]) 1 spray Q2HP PRN MT SORE THROAT 10/23/20 15:50 10/23/20 16:08 Potassium Chloride 10 meq/ IV Miscellaneous Supplies 100 ml @ 100 mls/hr Q1H IV 10/23/20 09:00 10/23/20 11:59 DC 10/23/20 12:41 Sodium Chloride 1,000 ml @ 125 mls/hr Q8H IV 10/21/20 08:35 10/24/20 10:20 DC 10/24/20 03:47 Allergies Coded Allergies: Penicillins (Verified Allergy, Intermediate, HIVES, 05/24/20) ciprofloxacin (Verified Allergy, Intermediate, HIVES, 05/24/20) raspberry (Verified Allergy, Intermediate, HIVES, 05/24/20) Vani Conner MD Oct 24, 2020 15:29
[2020-10-24] MEDS: MORPHINE 4 MG/ML 1ML VIAL/SYRINGE (J2270) IV PRN (21:47)
[2020-10-24] MEDS: ONDANSETRON 4MG/2ML VIAL IV PRN (21:48)
[2020-10-24 22:00] VITALS: BP 156/74
[2020-10-25] MEDS: D5W/0.9% SODIUM CHLORIDE 1,000 ML IV SCH ×3 (02:51→22:26)
--- NOTE | 2020-10-25 05:18 | IPN ---
PROGRESS NOTE DATE: 10/24/2020 SUBJECTIVE: The patient is a 75-year-old man admitted on the morning of October 21 with abdominal pain and findings consistent with a bowel obstruction. An NG-tube has been in place and he has been receiving IV fluids. He reports today that he has not passed any flatus or had any further significant bowel function. He is not having any abdominal discomfort. He has noted a fair amount of drainage from his NG-tube. Vital signs shows that he has been afebrile over the past 24 hours. His pulse is in the 50s and 60s and his blood pressure is normal. Intake and output: Input and output shows that yesterday he had a total of 1500 in with 3600 out. He had a total of 1850 in urine and 1750 from his NG-tube. OBJECTIVE: Physical exam shows the patient looking fairly comfortable lying quietly on the hospital bed. Skin is warm and dry. Heart exam shows a regular rhythm. The lungs are clear. The abdomen is perhaps mildly full. Auscultation reveals a few tinkly bowel sounds. He has tympany to percussion in the mid and upper abdomen. Palpation reveals no discrete tenderness. LABORATORY DATA: Laboratory studies shows a white count of 6 with a hemoglobin of 12, hematocrit of 35 and a platelet count of 165,000. The chemistry profile shows a sodium of 144, potassium of 3.7, chloride 111, CO2 of 25, BUN 16, creatinine 0.55 and a glucose of 65. Total protein is 5.6 with an albumin of 2.7. Patient had a KUB this morning that showed persistent air-filled dilated mid and upper abdominal small bowel loops. A paucity of distal intestinal gas was noted. IMPRESSION: Patient has evidence for a persistent small bowel obstruction. PLAN: Patient was counseled that he still has evidence for a bowel obstruction. I advised him that with no improvement in three days that spontaneous improvement is becoming less likely. We will obtain a repeat KUB in the morning and if he has shown no improvement, we will discuss the timing of surgery for a possible laparoscopic procedure for his obstruction. The patient is agreeable with this plan. SARA
[2020-10-25 06:00] VITALS: BP 146/84
--- NOTE | 2020-10-25 08:53 | REP ---
INDICATION: follow SBO COMPARISON: 10/24/2020 TECHNIQUE: Supine view of the abdomen and pelvis. FINDINGS: Dilated loops of small bowel consistent with obstruction and appear more prominent than prior examination. Remainder of the examination is relatively stable. IMPRESSION: Increasing small-bowel obstruction suggested. <Electronically signed by Tao Jaramillo > 10/25/20 0803
--- NOTE | 2020-10-25 11:01 | IPNPDOC ---
Text Note Date of Service The patient was seen on 10/25/20. NOTE Gen. surgery. Dr. Kemp The patient is a 75-year-old male admitted 10/21/20 with SBO. NG tube in place. This morning, the patient is sitting in wheelchair waiting to go to x-ray. Still feeling bloated. Reports tiny amount of flatus but no BM. Denies nausea or vomiting. NG tube 350 mL output recorded 10/24. Afebrile. VSS Awake and alert, NAD. NG tube in place. Lungs clear to auscultation S1-S2 regular rate and rhythm Abdomen. Still distended, no tenderness with palpation. Generally tympanic. Extremities with no edema. No leukocytosis. 620 mL and NG tube 10/21, nursing reports 475ml overnight. Assessment/plan SBO. Plan is to proceed with KUB this morning to see if there has been any improvement. At the time of exam, the patient is waiting to go to x-ray. Further recommendations pending review of imaging. NPO/NGT LIS. IVF. Monitor. VS,Fishbone, I+O VS, Fishbone, I+O Vital Signs Date Time Temp Pulse Resp B/P (MAP) Pulse Ox O2 Delivery O2 Flow Rate FiO2 10/25/20 06:00 98.0 60 20 146/84 (104) 94 10/24/20 06:00 Room Air I&O- Last 24 Hours up to 6 AM 10/25/20 06:00 Intake Total 0 ml Output Total 1400 ml Balance -1400 ml Attending Note Attending Note KUB shows increased loops of air filled and distended SB in mid and upper abdomen. Minimal flatus today in am. Imp: persistent SBO Plan: Pt counselled for surgery and desires to proceed. Patient added on for OR tonight. Davida Browning Oct 25, 2020 11:01 Rosendo Leija Oct 25, 2020 19:31
[2020-10-25] MEDS: PANTOPRAZOLE 40MG VIAL (C9113 PER 1) IV SCH (11:56)
[2020-10-25 14:00] VITALS: BP 129/77
--- NOTE | 2020-10-25 14:07 | IPNPDOC ---
Date Seen The patient was seen on 10/25/20. Progress Note SUBJECTIVE: KUB this AM suggests increasing SBO, patient admits to passing flatus, last small BM 10/24/20. Surgery to follow up today. AM labs pending. Denies SOB, chest pain, fevers, chills. OBJECTIVE: PHYSICAL EXAMINATION: VS: Please see below CONSTITUTIONAL: NAD resting in bed , AAO x 3 EYES: PERRLA, EOM intact HENT, MOUTH: Normocephalic, atraumatic, moist mucous membranes NECK: SUPPLE, no JVD, no lymphadenopathy, no carotid bruit CV: Regular rate and rhythm, S1S2 normal, no murmurs/rubs/gallops RESPIRATORY: Clear to auscultation bilaterally, no rales/rhonchi/wheezes GI: obese abd, nontender to palpation of left and right lower quadrants. BS hypoactive but positive in 4 quadrants, soft, nondistended, no rebound or guarding, no organomegaly : Deferred MUSCULOSKELETAL: Normal ROM. No cyanosis, clubbing, swelling, joint deformity, extremity edema INTEGUMENTARY: Intact, no rashes, no lesions, no erythema NEUROLOGIC: Cranial Nerves II-XII are intact, no focal deficits LABORATORY DATA: Please see below IMAGING: KUB 10/25/20: Increasing small-bowel obstruction suggested. KUB 10/24/20: Small-bowel obstruction pattern persists. NG tube in the gastric fundus. CTA chest: 1. Fusiform aneurysmal dilatation of the ascending aorta at 4.[address] evidence thoracic aortic dissection, ulcerated plaque or rupture. 3. Small sliding hiatal hernia. CT abd/pelvis with contrast : 1. No CT evidence of abdominal aortic aneurysm, dissection, ulcerated plaque or rupture. 2. CT findings suspicious for early small bowel obstruction with cluster of small bowel loops in the left abdomen with 2 areas of apparent narrowing/transition coupled with mesenteric stranding, edema and small amount of free fluid. Underlying internal hernia cannot be excluded. 3. Thickened and hyperemic small bowel loops could be reactive enteritis however underlying infectious etiology cannot be excluded. 4. Severe descending and sigmoid colon diverticulosis. ASSESSMENT: 75 y/o M with PMH of CAD, hypertension, hyperlipidemia, history of tobacco use, diverticulitis history, lumbar degenerative disc disease, GERD, depression admitted for further treatment of small bowel obstruction. PLAN: SBO - 350 mL/24H out of NG tube, improved abd discomfort, afebrile, WBC wnl -CT above -Had 1 small BM 10/24/20 per patient -KUB above -F/u surgery recommendations -For now c/w NG tube with IS, NPO, IVFs at 100 cc/hr (watch/monitor for s/s of fluid overload with hx of CAD) Hypoglycemia likely 2/2 to decreased PO intake -D5W at 125 cc/hr -Monitor closely while NPO HTN -Controlled -Monitoring closely while not getting PO home med CAD -Stable, denies chest pain -Holding home PO for now Hyperlipidemia -Hold PO statin for now Chronic pain 2/2 to lumbar degenerative disc disease -Stable -Resume tylenol PRN whan able to take PO Depression -Stable -Holding PO sertraline GERD/GI px -PPI DVT px -Heparin sc DISPOSITION: Admitted under medicine service, surgery consulted. C/w TX above. Plan is home at discharge. VS, I&O, 24H, Fishbone Vital Signs/I&O Vital Signs Date Time Temp Pulse Resp B/P (MAP) Pulse Ox O2 Delivery O2 Flow Rate FiO2 10/25/20 06:00 98.0 60 20 146/84 (104) 94 10/24/20 06:00 Room Air I&O- Last 24 Hours up to 6 AM 10/25/20 06:00 Intake Total 0 ml Output Total 1400 ml Balance -1400 ml Laboratory Data 24H LABS Laboratory Tests 2 10/25/20 09:21: Lactic Acid Level 0.9 Current Medications Current Medications Medications (Trade) Dose Ordered Sig/Armen Route PRN Reason Start Time Stop Time Status Last Admin Dose Admin Dextrose/Sodium Chloride 1,000 ml @ 100 mls/hr Q10H IV 10/24/20 10:20 10/25/20 11:58 Home Med (Med Rec Complete!) ASDIRECTED XX 10/21/20 06:25 10/21/20 06:24 DC Labetalol HCl (Normodyne, Trandate) 20 mg STAT STAT IV 10/21/20 06:36 10/21/20 06:37 DC 10/21/20 06:49 Morphine Sulfate (Morphine Sulfate Inj) 2 mg Q4H PRN IV MODERATE PAIN (PS 5-7) 10/21/20 08:35 10/21/20 20:09 Morphine Sulfate (Morphine Sulfate Inj) 4 mg Q30M PRN IV SEVERE PAIN (PS 8-10) 10/21/20 05:00 10/21/20 05:38 DC 10/21/20 05:38 Morphine Sulfate (Morphine Sulfate Inj) 4 mg Q30M PRN IV SEVERE PAIN (PS 8-10) 10/21/20 06:15 10/21/20 06:50 DC 10/21/20 06:49 Morphine Sulfate (Morphine Sulfate Inj) 4 mg Q4HP PRN IV SEVERE PAIN (PS 8-10) 10/21/20 08:35 10/24/20 21:47 Ondansetron HCl (ZOFRAN INJection) 4 mg Q6HP PRN IV NAUSEA OR VOMITING 10/22/20 00:50 10/24/20 21:48 Pantoprazole Sodium (Protonix) 40 mg Q24H IV 10/21/20 11:00 10/25/20 11:56 Phenol (Chloraseptic [place]) 1 spray Q2HP PRN MT SORE THROAT 10/23/20 15:50 10/23/20 16:08 Potassium Chloride 10 meq/ IV Miscellaneous Supplies 100 ml @ 100 mls/hr Q1H IV 10/23/20 09:00 10/23/20 11:59 DC 10/23/20 12:41 Sodium Chloride 1,000 ml @ 125 mls/hr Q8H IV 10/21/20 08:35 10/24/20 10:20 DC 10/24/20 03:47 Allergies Coded Allergies: Penicillins (Verified Allergy, Intermediate, HIVES, 05/24/20) ciprofloxacin (Verified Allergy, Intermediate, HIVES, 05/24/20) raspberry (Verified Allergy, Intermediate, HIVES, 05/24/20) Vani Conner MD Oct 25, 2020 14:07
[2020-10-25 14:43] LABS: HEMATOCRIT 34.3 % (42.0-52.0); HEMOGLOBIN 11.3 g/dl (13.5-17.5); MEAN CORPUSCULAR HEMOGLOBIN 31.7 pg (27.0-33.0); MEAN CORPUSCULAR HGB CONC 32.9 g/dl (32.0-36.5); MEAN CORPUSCULAR VOLUME 96.3 fl (80.0-96.0); PLATELET COUNT, AUTOMATED 183 10^3/uL (150-450); RED BLOOD COUNT 3.56 10^6/uL (4.30-6.10); WHITE BLOOD COUNT 5.3 10^3/uL (4.0-10.0)
[2020-10-25 15:17] LABS: ALBUMIN 2.7 GM/DL (3.2-5.2); ALT/SGPT 15 U/L (12-78); BILIRUBIN,TOTAL 0.4 MG/DL (0.2-1.0); BLOOD UREA NITROGEN 10 MG/DL (7-18); CALCIUM LEVEL 7.9 MG/DL (8.8-10.2); CARBON DIOXIDE LEVEL 29 MEQ/L (21-32); CHLORIDE LEVEL 111 MEQ/L (98-107); CREATININE FOR GFR 0.64 MG/DL (0.70-1.30); GLOMERULAR FILTRATION RATE > 60.0 (>42); GLUCOSE, FASTING 124 MG/DL (70-100); POTASSIUM SERUM 3.2 MEQ/L (3.5-5.1); SODIUM LEVEL 145 MEQ/L (136-145); TOTAL PROTEIN 5.6 GM/DL (6.4-8.2)
[2020-10-25] MEDS ORDERED: KCL 10MEQ/100ML SWI (KRUN) 10 MEQ in IV 1 EA IV ONE (17:00)
[2020-10-25] MEDS ORDERED: fentaNYL 100 MCG/2 ML INJECTION (J3010) As Ordered ONE (17:29)
[2020-10-25] MEDS ORDERED: ONDANSETRON 4MG/2ML VIAL As Ordered ONE (17:29)
[2020-10-25] MEDS ORDERED: MIDAZOLAM INJ 2MG/2ML VIAL (J2250 PER 1MG) As Ordered ONE (17:29)
[2020-10-25] MEDS ORDERED: ePHEDrine SULFATE 25 MG/5 ML(5MG/ML) SYRINGE As Ordered ONE (17:30)
[2020-10-25] MEDS ORDERED: ROCURONIUM BROMIDE 50 MG/5 ML VIAL As Ordered ONE ×2 (17:30→19:59)
[2020-10-25] MEDS ORDERED: PHENYLephrine 500MCG 5ML (100MCG/ML) SYRINGE As Ordered ONE (17:30)
[2020-10-25] MEDS ORDERED: dexameTHASONE 4 MG/ML 1ML VIAL (J1100 PER 1MG) As Ordered ONE (17:30)
[2020-10-25] MEDS ORDERED: propofoL 200 MG/20 ML VIAL As Ordered ONE (17:30)
[2020-10-25] MEDS ORDERED: LIDOCAINE 2% 100MG/5ML SDV (FOR ANES.) As Ordered ONE (17:30)
[2020-10-25] MEDS ORDERED: SUGAMMADEX SODIUM 500 MG/5 ML VIAL (BRIDION) As Ordered ONE (17:30)
[2020-10-25] MEDS ORDERED: BUPIVACAINE/EPIN 0.25% 30 ML VIAL As Ordered ONE (17:40)
[2020-10-25] MEDS ORDERED: BUPIVACAINE HCL 0.25% 30ML VIAL As Ordered ONE (17:40)
[2020-10-25] MEDS ORDERED: BUPIVACAINE LIPOSOME/PF 1.3% 20ML VIAL (13.3MG/ML)(EXPAREL)(C9290 PER1MG) As Ordered ONE (17:40)
[2020-10-25] MEDS ORDERED: KETOROLAC 60MG 2ML VIAL As Ordered ONE (20:02)
[2020-10-25] MEDS ORDERED: ACETAMINOPHEN 1000MG 100ML IV BTL (OFIRMEV) (J0131 PER 10MG) As Ordered ONE (20:02)
[2020-10-25] MEDS ORDERED: HYDROmorphone HCL 2 MG/ML 1ML VIAL (J1170) As Ordered ONE (20:12)
[2020-10-25] MEDS ORDERED: LABETALOL 100MG/20ML VIAL As Ordered ONE (20:31)
[2020-10-25] MEDS ORDERED: GLYCOPYRROLATE INJ 0.2 MG/ML 2 ML VIAL As Ordered ONE (20:54)
[2020-10-25] MEDS ORDERED: ACETAMINOPHEN TAB 650MG DOSE (2X325MG) PO PRN (21:20)
[2020-10-25] MEDS ORDERED: KETOROLAC 30 MG/ML 1ML VIAL IV PRN (21:20)
[2020-10-25] MEDS ORDERED: MORPHINE 2 MG/ML 1ML VIAL (J2270) IV PRN (21:20)
[2020-10-25 22:30] VITALS: BP 134/78
[2020-10-25] MEDS ORDERED: LR 1,000 ML IV SCH (22:45)
[2020-10-25] MEDS ORDERED: oxyCODONE 5MG TAB PO PRN (22:45)
[2020-10-25] MEDS ORDERED: METOCLOPRAMIDE INJ 10MG/2ML VIAL (J2765 PER 1) IV PRN (22:45)
[2020-10-25] MEDS ORDERED: ONDANSETRON 4MG/2ML VIAL IV PRN (22:45)
[2020-10-25] MEDS ORDERED: fentaNYL 100 MCG/2 ML INJECTION (J3010) IV PRN (22:45)
[2020-10-25] MEDS ORDERED: HYDROMORPHONE HCL 0.5 MG/ 0.5 ML SYRINGE (J1170 PER 1) IV PRN (22:45)
[2020-10-25 23:00] VITALS: BP 132/76
[2020-10-25 23:30] VITALS: BP 153/83
[2020-10-26] VITALS (8 sets, daily range): BP systolic 133–142; BP diastolic 72–81
[2020-10-26 07:46] LABS: BASO % 0.3 % (0.0-1.0); HEMATOCRIT 33.1 % (42.0-52.0); LYMPH # 0.5 10^3/uL (1.5-5.0); LYMPH % 8.4 % (24.0-44.0); MEAN CORPUSCULAR HEMOGLOBIN 31.3 pg (27.0-33.0); MEAN CORPUSCULAR HGB CONC 33.2 g/dl (32.0-36.5); MONO # 0.4 10^3/uL (0.0-0.8); MONO % 6.3 % (2.0-8.0); NEUTROPHILS # 4.8 10^3/uL (1.5-8.5); NEUTROPHILS % 84.3 % (36.0-66.0); PLATELET COUNT, AUTOMATED 189 10^3/uL (150-450); RED BLOOD COUNT 3.52 10^6/uL (4.30-6.10); WHITE BLOOD COUNT 5.7 10^3/uL (4.0-10.0)
[2020-10-26] MEDS ORDERED: IBUPROFEN 400MG TAB PO PRN (07:50)
[2020-10-26 08:04] LABS: BLOOD UREA NITROGEN 9 MG/DL (7-18); CALCIUM LEVEL 7.7 MG/DL (8.8-10.2); CARBON DIOXIDE LEVEL 27 MEQ/L (21-32); CHLORIDE LEVEL 110 MEQ/L (98-107); CREATININE FOR GFR 0.72 MG/DL (0.70-1.30); GLOMERULAR FILTRATION RATE > 60.0 (>42); GLUCOSE, FASTING 158 MG/DL (70-100); POTASSIUM SERUM 3.2 MEQ/L (3.5-5.1); SODIUM LEVEL 142 MEQ/L (136-145)
[2020-10-26] MEDS ORDERED: KCL 10MEQ/100ML SWI (KRUN) 10 MEQ in IV 1 EA IV SCH (09:00)
[2020-10-26] MEDS: D5W/0.9% SODIUM CHLORIDE 1,000 ML IV SCH (09:31)
[2020-10-26] MEDS: SERTRALINE 100 MG TAB PO SCH (09:32)
--- NOTE | 2020-10-26 10:32 | IPNPDOC ---
Text Note Date of Service The patient was seen on 10/26/20. NOTE Gen. surgery. Dr. Leija The patient is a 75-year-old male admitted 10/21/20 with SBO. Status post laparoscopy with lysis of adhesion and release of SBO 10/25/[address] Luis ventura. This morning, the patient is sitting up in bed, states he feels much better. Bloating is less. Pain has been controlled Reports flatus and 2 small bowel movements, diarrhea. Denies nausea or vomiting. Tolerating sips of clears. Afebrile. VSS. 97% 2 L nasal cannula Awake and alert, NAD. MMM Lungs clear to auscultation S1-S2 regular rate and rhythm Abdomen. Soft, less distended today, slight tenderness around incision sites. Incision sites C/D/I. Extremities with no edema. No leukocytosis. Hgb 11.0. Assessment/plan SBO. Status post laparoscopy with lysis of adhesion and release of SBO 10/25/[address] Leija. Afebrile. VSS. Patient reports feeling much better today. Less distended. Reports flatus and small BM 2 as morning, diarrhea. Tolerating sips of clears IVF with KCL 100cc/hr. Monitor. VS,Fishbone, I+O VS, Fishbone, I+O Laboratory Tests 10/25/20 14:25 10/26/20 07:31 Vital Signs Date Time Temp Pulse Resp B/P (MAP) Pulse Ox O2 Delivery O2 Flow Rate FiO2 10/26/20 10:00 98.6 60 18 137/81 (99) 97 Nasal Cannula 2.0 I&O- Last 24 Hours up to 6 AM 10/26/20 05:59 Intake Total 2640 ml Output Total 2655 ml Balance -15 ml Attending Note Attending Note Agree with above. NG removed at end of surgery last pm. No N/V. Small amt flatus and small BM. Sips started early in day. Tolerated with several more BM's and gas. Seen in evening and advanced to regular diet. Instructed to go as tolerated. If does well may be able to DC in am. Davida Browning Oct 26, 2020 10:32 Rosendo Leija Oct 26, 2020 23:24
[2020-10-26] MEDS: PANTOPRAZOLE 40MG VIAL (C9113 PER 1) IV SCH (11:27)
[2020-10-26] MEDS ORDERED: KCL 40MEQ IN D5/NS 1000ML 1,000 ML IV SCH (13:00)
--- NOTE | 2020-10-26 14:36 | IPNPDOC ---
Date Seen The patient was seen on 10/26/20. Progress Note SUBJECTIVE: POD 1 laparoscopy with lysis of adhesion and release of SBO 10/25/20. Passing flatus, decreased abd distention. Denies SOB, chest pain, fevers, chills. OBJECTIVE: PHYSICAL EXAMINATION: VS: Please see below CONSTITUTIONAL: NAD resting in bed , AAO x 3 EYES: PERRLA, EOM intact HENT, MOUTH: Normocephalic, atraumatic, moist mucous membranes NECK: SUPPLE, no JVD, no lymphadenopathy, no carotid bruit CV: Regular rate and rhythm, S1S2 normal, no murmurs/rubs/gallops RESPIRATORY: Clear to auscultation bilaterally, no rales/rhonchi/wheezes GI: Multiple clean incisions, mildly tender 2/10 on deep palpation. obese abd, BS hypoactive but positive in 4 quadrants, mild distension, no rebound or guarding, no organomegaly : Deferred MUSCULOSKELETAL: Normal ROM. No cyanosis, clubbing, swelling, joint deformity, extremity edema INTEGUMENTARY: Intact, no rashes, no lesions, no erythema NEUROLOGIC: Cranial Nerves II-XII are intact, no focal deficits LABORATORY DATA: Please see below IMAGING: KUB 10/25/20: Increasing small-bowel obstruction suggested. KUB 10/24/20: Small-bowel obstruction pattern persists. NG tube in the gastric fundus. CTA chest: 1. Fusiform aneurysmal dilatation of the ascending aorta at 4.[address] evidence thoracic aortic dissection, ulcerated plaque or rupture. 3. Small sliding hiatal hernia. CT abd/pelvis with contrast : 1. No CT evidence of abdominal aortic aneurysm, dissection, ulcerated plaque or rupture. 2. CT findings suspicious for early small bowel obstruction with cluster of small bowel loops in the left abdomen with 2 areas of apparent narrowing/transition coupled with mesenteric stranding, edema and small amount of free fluid. Underlying internal hernia cannot be excluded. 3. Thickened and hyperemic small bowel loops could be reactive enteritis however underlying infectious etiology cannot be excluded. 4. Severe descending and sigmoid colon diverticulosis. ASSESSMENT: 75 y/o M with PMH of CAD, hypertension, hyperlipidemia, history of tobacco use, diverticulitis history, lumbar degenerative disc disease, GERD, depression admitted for further treatment of small bowel obstruction. PLAN: SBO -POD 1 laparoscopy with lysis of adhesion and release of SBO -Improved abd discomfort and distention, afebrile, WBC wnl -Passing flatus -C/w IVFs, NPO status, pain control, monitor I&O's closely -F/u surgery recommendations Acute hypokalemia -Could not tolerated IV KCL -Started D5WNS with KCL -F/u AM labs Hypoglycemia likely 2/2 to decreased PO intake -Stable and improved -FS BID -D5W IVFs -Monitor closely while NPO HTN -Controlled -Monitoring closely while not getting PO home med CAD -Stable, denies chest pain -Holding home PO for now Hyperlipidemia -Hold PO statin for now Chronic pain 2/2 to lumbar degenerative disc disease -Stable -Resume tylenol PRN whan able to take PO Depression -Stable -Holding PO sertraline GERD/GI px -PPI DVT px -Heparin sc DISPOSITION: Surgery consulted. C/w TX above. Plan is home at discharge. SBO. Status post laparoscopy with lysis of adhesion and release of SBO 10/25/[address] Leija. Afebrile. VSS. Patient reports feeling much better today. Less distended. Reports flatus and small BM 2 as morning, diarrhea. Tolerating sips of clears IVF with KCL 100cc/hr. Monitor. VS, I&O, 24H, Fishbone Vital Signs/I&O Vital Signs Date Time Temp Pulse Resp B/P (MAP) Pulse Ox O2 Delivery O2 Flow Rate FiO2 10/26/20 10:00 98.6 60 18 137/81 (99) 97 Nasal Cannula 2.0 I&O- Last 24 Hours up to 6 AM 10/26/20 06:00 Intake Total 2640 ml Output Total 2305 ml Balance 335 ml Laboratory Data 24H LABS Laboratory Tests 2 10/26/20 07:31: Immature Granulocyte % (Auto) 0.7, Neutrophils (%) (Auto) 84.3H, Lymphocytes (%) (Auto) 8.4L, Monocytes (%) (Auto) 6.3, Eosinophils (%) (Auto) 0.0, Basophils (%) (Auto) 0.3, Neutrophils # (Auto) 4.8, Lymphocytes # (Auto) 0.5L, Monocytes # (Auto) 0.4, Eosinophils # (Auto) 0.0, Basophils # (Auto) 0.0, Nucleated Red Blood Cells % (auto) 0.0, Anion Gap 5L, Glomerular Filtration Rate > 60.0, Calcium Level 7.7L CBC/BMP Laboratory Tests 10/26/20 07:31 Current Medications Current Medications Medications (Trade) Dose Ordered Sig/Armen Route PRN Reason Start Time Stop Time Status Last Admin Dose Admin Acetaminophen (Tylenol Tab) 650 mg Q4HP PRN PO MILD PAIN or TEMP > 100.4 10/25/20 21:20 Dextrose/Sodium Chloride 1,000 ml @ 50 mls/hr Q20H IV 10/24/20 10:20 10/26/20 10:29 DC 10/26/20 09:31 Fentanyl Citrate (Sublimaze) 25 mcg Q5MP PRN IV PAIN LEVEL 5-10 10/25/20 22:45 10/25/20 23:45 DC Home Med (Med Rec Complete!) ASDIRECTED XX 10/21/20 06:25 10/21/20 06:24 DC Hydromorphone HCl (Dilaudid) 0.4 mg Q5MP PRN IV PAIN LEVEL 4-7 10/25/20 22:45 10/25/20 23:45 DC Ibuprofen (Advil) 400 mg Q6HP PRN PO MODERATE PAIN (PS 5-7) 10/26/20 07:50 Ketorolac Tromethamine (ToRADol) 15 mg Q6H PRN IV MODERATE PAIN (PS 5-7) 10/25/20 21:20 10/26/20 07:50 DC Labetalol HCl (Normodyne, Trandate) 20 mg STAT STAT IV 10/21/20 06:36 10/21/20 06:37 DC 10/21/20 06:49 Lactated Ringer's 1,000 ml @ 75 mls/hr [id number] IV 10/25/20 22:45 10/25/20 23:45 DC Metoclopramide HCl (REGLAN INJection) 10 mg Q6HP PRN IV NAUSEA OR VOMITING 10/25/20 22:45 10/25/20 23:45 DC Morphine Sulfate (Morphine Sulfate Inj) 2 mg Q2H PRN IV SEVERE PAIN (PS 8-10) 10/25/20 21:20 Morphine Sulfate (Morphine Sulfate Inj) 2 mg Q4H PRN IV MODERATE PAIN (PS 5-7) 10/21/20 08:35 10/25/20 21:30 DC 10/21/20 20:09 Morphine Sulfate (Morphine Sulfate Inj) 4 mg Q30M PRN IV SEVERE PAIN (PS 8-10) 10/21/20 05:00 10/21/20 05:38 DC 10/21/20 05:38 Morphine Sulfate (Morphine Sulfate Inj) 4 mg Q30M PRN IV SEVERE PAIN (PS 8-10) 10/21/20 06:15 10/21/20 06:50 DC 10/21/20 06:49 Morphine Sulfate (Morphine Sulfate Inj) 4 mg Q4HP PRN IV SEVERE PAIN (PS 8-10) 10/21/20 08:35 10/25/20 21:30 DC 10/24/20 21:47 Ondansetron HCl (ZOFRAN INJection) 4 mg Q4HP PRN IV NAUSEA OR VOMITING 10/25/20 22:45 10/25/20 23:45 DC Ondansetron HCl (ZOFRAN INJection) 4 mg Q6HP PRN IV NAUSEA OR VOMITING 10/22/20 00:50 10/24/20 21:48 Oxycodone HCl (Roxicodone, Oxyir) 5 mg ASDIRECTED PRN PO PAIN LEVEL 1-4 10/25/20 22:45 10/25/20 23:45 DC Pantoprazole Sodium (Protonix) 40 mg Q24H IV 10/21/20 11:00 10/26/20 11:27 Phenol (Chloraseptic [place]) 1 spray Q2HP PRN MT SORE THROAT 10/23/20 15:50 10/23/20 16:08 Potassium Chloride 10 meq/ IV Miscellaneous Supplies 100 ml @ 100 mls/hr Q1H IV 10/23/20 09:00 10/23/20 11:59 DC 10/23/20 12:41 Potassium Chloride 10 meq/ IV Miscellaneous Supplies 100 ml @ 100 mls/hr Q1H IV 10/26/20 09:00 10/26/20 10:29 DC 10/26/20 09:31 Potassium Chloride 1,000 ml @ 80 mls/hr [id number] IV 10/26/20 13:00 10/26/20 13:27 Sertraline HCl (Zoloft) 100 mg DAILY PO 10/26/20 09:00 10/26/20 09:32 Sodium Chloride 1,000 ml @ 125 mls/hr Q8H IV 10/21/20 08:35 10/24/20 10:20 DC 10/24/20 03:47 Allergies Coded Allergies: Penicillins (Verified Allergy, Intermediate, HIVES, 05/24/20) ciprofloxacin (Verified Allergy, Intermediate, HIVES, 05/24/20) raspberry (Verified Allergy, Intermediate, HIVES, 05/24/20) Vani Conner MD Oct 26, 2020 14:36
[2020-10-27 06:00] VITALS: BP 131/73
[2020-10-27 07:04] LABS: HEMATOCRIT 33.9 % (42.0-52.0); HEMOGLOBIN 11.1 g/dl (13.5-17.5); MEAN CORPUSCULAR HEMOGLOBIN 31.5 pg (27.0-33.0); MEAN CORPUSCULAR HGB CONC 32.7 g/dl (32.0-36.5); MEAN CORPUSCULAR VOLUME 96.3 fl (80.0-96.0); PLATELET COUNT, AUTOMATED 194 10^3/uL (150-450); RED BLOOD COUNT 3.52 10^6/uL (4.30-6.10); WHITE BLOOD COUNT 5.7 10^3/uL (4.0-10.0)
[2020-10-27 07:32] LABS: BLOOD UREA NITROGEN 11 MG/DL (7-18); CALCIUM LEVEL 8.1 MG/DL (8.8-10.2); CARBON DIOXIDE LEVEL 26 MEQ/L (21-32); CHLORIDE LEVEL 111 MEQ/L (98-107); CREATININE FOR GFR 0.69 MG/DL (0.70-1.30); GLOMERULAR FILTRATION RATE > 60.0 (>42); GLUCOSE, FASTING 110 MG/DL (70-100); SODIUM LEVEL 144 MEQ/L (136-145)
[2020-10-27] MEDS ORDERED: POTASSIUM CHLORIDE 10 MEQ SR TABLET PO ONE ×2 (07:40→10:00)
--- NOTE | 2020-10-27 08:54 | IPNPDOC ---
Text Note Date of Service The patient was seen on 10/27/20. NOTE Gen. surgery. Dr. Leija The patient is a 75-year-old male admitted 10/21/20 with SBO. Status post laparoscopy with lysis of adhesion and release of SBO 10/25/[address] Smith all. This morning, the patient is sitting up in bed, states he feels much better. Reports flatus and several bowel movements, some diarrhea but some formed stool. Denies nausea or vomiting. Tolerating regular diet. Afebrile. VSS. 97% 2 L nasal cannula Awake and alert, NAD. MMM Lungs clear to auscultation S1-S2 regular rate and rhythm Abdomen. Soft, still some mild distention but nontender. Incision sites C/D/I. Extremities with no edema. No leukocytosis. Hgb 11.1. Potassium 3.0 this morning, supplement ordered. Assessment/plan SBO. Status post laparoscopy with lysis of adhesion and release of SBO 10/25/[address] Leija. Afebrile. VSS. Patient reports flatus and has been having bowel movements. Tolerating regular diet The patient is reviewed and examined as per Dr. Leija this morning, from surgical standpoint the patient may be discharged when medically cleared with outpatient follow-up with General Surgery in 2 weeks. VS,Fishbone, I+O VS, Fishbone, I+O Laboratory Tests 10/27/20 06:24 Vital Signs Date Time Temp Pulse Resp B/P (MAP) Pulse Ox O2 Delivery O2 Flow Rate FiO2 10/27/20 06:00 97.6 65 18 131/73 (92) 96 Room Air 10/26/20 18:00 2.0 I&O- Last 24 Hours up to 6 AM 10/27/20 05:59 Intake Total 1120 ml Balance 1120 ml Attending Note Attending Note I agree with above note by REYNALDO Hernandez. Davida Browning Oct 27, 2020 08:54 Rosendo Leija Oct 27, 2020 22:57
--- NOTE | 2020-10-27 09:06 | RO ---
OPERATIVE NOTE DATE OF OPERATION: 10/25/2020 PREOPERATIVE DIAGNOSIS: Small bowel obstruction. POSTOPERATIVE DIAGNOSIS: Small bowel obstruction secondary to omental band. PROCEDURE: Laparoscopy with lysis of omental band and release of small bowel obstruction. SURGEON: Rosendo Leija MD CHIEF LOCK OPERATOR: ANESTHESIA: General. INDICATIONS FOR THE PROCEDURE: The patient is a 75-year-old man who was admitted to the hospital on the morning of the 21 of October with evidence for a small bowel obstruction. He has been observed with an NG tube in place since then without resolution of his obstruction. He is now for laparoscopy and possible laparotomy for release of small bowel obstruction. DESCRIPTION OF PROCEDURE: The patient was brought to the operating room and placed on the table in a supine position. He was placed under general endotracheal anesthesia. His NG tube was left in place. A Zepeda catheter was inserted. The patient's abdomen was prepped and draped in a sterile fashion. 0.25% Marcaine was infiltrated at the trocar sites as needed. A site was selected in the high right upper quadrant and a short incision was made. A Veress needle was carefully inserted and after a positive hanging-drop test, the abdomen was inflated with carbon dioxide gas. When the abdomen was inflated, a 5-mm port was placed over the scope and advanced to the abdominal wall without difficulty. On entering the abdomen, the patient was noted to have multiple loops of air and fluid-filled small bowel filling the mid abdomen. He was noted to have some free fluid above the liver and along the pericolic gutters. This appeared to be slightly reddish brown in color. The liver itself appeared normal. There was no exudate noted within the abdomen. Two additional 5-mm ports were placed along the right side of the abdomen at the mid abdomen and the right lower quadrant. Graspers were inserted. The patient was tilted appropriately for exploration of the abdomen. Some decompressed distal small bowel was identified in the right lower quadrant. Much of the bowel in the mid and upper abdomen was covered by the omentum and as I worked to elevate this off of the small bowel, it was clear that there was omentum wrapped around a loop of bowel in the left mid abdomen. Careful exploration of this area revealed a fairly filmy-appearing band about 2.5 cm in width crossing the mesentery of the small bowel in this area. The mesentery in that area was quite edematous and somewhat hemorrhagic in appearance though the bowel itself looked healthy. This band was elevated with a grasper and then cut using cauterizing scissors. As the lysis of this band was completed, the edges retracted away from the bowel and the omentum slipped superiorly into the upper abdomen. More thorough examination of this area revealed a perhaps 8-10 inch long segment of small bowel with significant edema and some hemorrhage or bruising of the mesentery in this area, but again the bowel itself appeared clearly viable. The small bowel was then run from the ligament of Treitz to the ileocecal valve and no other abnormalities were identified. The free fluid within the abdomen was aspirated and approximately 500 mL of fluid was removed. The abdomen was then deflated and the trocars were all removed. The incisions were closed with buried sutures of 4-0 Vicryl in the skin. Steri-Strips were applied followed by light dressings. The patient tolerated the procedure well without apparent complication. I elected to remove his NG tube and this was accomplished. His Zepeda catheter was removed as well. He was awakened in the operating room, extubated and moved to the recovery room in stable condition.
[2020-10-27] MEDS: SERTRALINE 100 MG TAB PO SCH (09:34)
--- NOTE | 2020-10-27 16:32 | DS.PDOC ---
Discharge Summary General Date of Admission Oct 21, 2020 at 08:32 Date of Discharge 10/27/20 Attending Physician: Vani Conner MD Discharge Summary HISTORY OF PRESENT ILLNESS: Patient is a 75-year-old male with PMH of CAD, hypertension, hyperlipidemia, history of tobacco use, diverticulitis history, lumbar degenerative disc disease, GERD, depression who presented to [facility] emergency room with sudden onset of periumbilical pain beginning at approximately 2 AM. The patient states the pain woke him up from sleep, was severe, 10/10, sharp, constant and worsened throughout the morning.He has never had pain like this in the past, new to patient. He denies lifting or pulling anything new, fevers, chills, chest pain, vomiting, nausea, diarrhea, recent medication changes, recent diet changes. He admits to associated shortness of breath with the pain only. He came to the [facility] room due to continued pain and symptoms mentioned above. In the ER, blood pressure was noted to be elevated with systolics [id number]. This was likely 2/2 to uncontrolled pain. He received a total of 16 mg IV morphine with minimal improvement. Pain was noted to be 10/10. He was saturating 97% on room air. Had normal labs include a lactic acid of 2.7 but all other labs are unremarkable. CTA of the chest showed an abdominal aortic aneurysm 4.2 cm without rupture or acute concern. CT abdomen and pelvis showed early small bowel obstruction with questionable enteritis. Surgery evaluated the patient at bedside and recommended medicine admit for small bowel obstruction, NG tube was placed and set to IS. Hospitalist will be admitting as primary for a bowel obstruction with surgical consult. HOSPITAL COURSE: From 10/21-10/24 patient was watched on NPO status, NG tube to IS. He had two cons ecutive KUB which showed persistent and likely worsening SBO. On 10/25/20 patient underwent laparoscopy with lysis of omental band and release of small bowel obstruction. The next day he had improved abd discomfort and decreased distention, was passing flatus. He later had bowel movement, remained afebrile. WBC remained wnl. He did well with advancing diet, drinking fluids well. Potassium was low and had to be intermittently replaced. Patient was also watched for low blood sugar and was treated for this during this stay. This issue resolved well after feeding resumed. On 10/27/20 patient was discharged to f/ with general surgery in 2 weeks. At time of discharge, he had no acute complaints. Other chronic issues remained stable. PAST MEDICAL HISTORY: coronary artery disease, hypertension, hyperlipidemia, history of tobacco use, diverticulitis history, lumbar degenerative disc disease, GERD, depression PAST SURGICAL HISTORY: Cardiac catheterization, back surgery, hip surgery, 2 hernia repairs FAMILY HISTORY: Father: healthy. at 67 y/o Mother: HTN. at 83 y/o SOCIAL HISTORY: Prior tobacco use history smoked 1 pack per week for over 20 years. Quit 40 years ago. Drinks 1 alcoholic beverage daily with dinner. Denies illicit drug use. He lives locally with his family. He does have a primary care provider who he follows with regularly and a provider relations specialist Dr. Higuera. DISCHARGE MEDICATIONS: Please see below PHYSICAL EXAMINATION: VS: Please see below CONSTITUTIONAL: NAD resting in bed , AAO x 3 EYES: PERRLA, EOM intact HENT, MOUTH: Normocephalic, atraumatic, moist mucous membranes NECK: SUPPLE, no JVD, no lymphadenopathy, no carotid bruit CV: Regular rate and rhythm, S1S2 normal, no murmurs/rubs/gallops RESPIRATORY: Clear to auscultation bilaterally, no rales/rhonchi/wheezes GI: Multiple clean incisions, nontender to palpation. obese abd, BS hypoactive but positive in 4 quadrants, mild distension, no rebound or guarding, no organomegaly : Deferred MUSCULOSKELETAL: Normal ROM. No cyanosis, clubbing, swelling, joint deformity, extremity edema INTEGUMENTARY: Intact, no rashes, no lesions, no erythema NEUROLOGIC: Cranial Nerves II-XII are intact, no focal deficits LABORATORY DATA: Please see below IMAGING: KUB 10/25/20: Increasing small-bowel obstruction suggested. KUB 10/24/20: Small-bowel obstruction pattern persists. NG tube in the gastric fundus. CTA chest: 1. Fusiform aneurysmal dilatation of the ascending aorta at 4.[address] evidence thoracic aortic dissection, ulcerated plaque or rupture. 3. Small sliding hiatal hernia. CT abd/pelvis with contrast : 1. No CT evidence of abdominal aortic aneurysm, dissection, ulcerated plaque or rupture. 2. CT findings suspicious for early small bowel obstruction with cluster of small bowel loops in the left abdomen with 2 areas of apparent narrowing/transition coupled with mesenteric stranding, edema and small amount of free fluid. Underlying internal hernia cannot be excluded. 3. Thickened and hyperemic small bowel loops could be reactive enteritis however underlying infectious etiology cannot be excluded. 4. Severe descending and sigmoid colon diverticulosis. ASSESSMENT: 75 y/o M with PMH of CAD, hypertension, hyperlipidemia, history of tobacco use, diverticulitis history, lumbar degenerative disc disease, GERD, depression admitted for further treatment of small bowel obstruction. PLAN: SBO -POD 2 laparoscopy with lysis of adhesion and release of SBO -Improved abd discomfort and distention, passing flatus, has had BM, afebrile, WBC wnl -Doing well with advanced diet, drinking fluids well -D/c home today to f/u with general surgery in 2 weeks. Acute hypokalemia -K 3.0 this AM -Given total of 70 mEq today -F/u with PCP Hypoglycemia likely 2/2 to decreased PO intake -Stable and improved HTN -Controlled -Resume home meds CAD -Stable, denies chest pain -c/w home meds Hyperlipidemia -C/w home meds Chronic pain 2/2 to lumbar degenerative disc disease -Stable Depression -Stable -c/w home med DISPOSITION: D/c home today to follow up with Dr. Leija in 2 weeks, PCP TIME SPENT ON DISCHARGE: 35 minutes. Vital Signs/I&Os Vital Signs Date Time Temp Pulse Resp B/P (MAP) Pulse Ox O2 Delivery O2 Flow Rate FiO2 10/27/20 09:00 2.0 10/27/20 06:00 97.6 65 18 131/73 (92) 96 Room Air I&O- Last 24 Hours up to 6 AM 10/27/20 06:00 Intake Total 1360 ml Balance 1360 ml Laboratory Data Labs 24H Laboratory Tests 2 10/27/20 06:24: Nucleated Red Blood Cells % (auto) 0.0, Anion Gap 7L, Glomerular Filtration Rate > 60.0, Calcium Level 8.1L CBC/BMP Laboratory Tests 10/27/20 06:24 Discharge Medications Scheduled Acetaminophen (Acetaminophen) 500 Mg Tablet, 1,000 MG PO DAILY, (Reported) Aspirin (Aspirin EC) 81 Mg Tablet., 81 MG PO DAILY, (Reported) Atorvastatin Calcium (Atorvastatin Calcium) 80 Mg Tablet, 80 MG PO DAILY, (Reported) Enalapril Maleate (Enalapril Maleate) 5 Mg Tab, 5 MG PO DAILY, (Reported) Fenofibrate (Fenofibrate) 54 Mg Tab, 54 MG PO DAILY, (Reported) Omeprazole (Omeprazole) 20 Mg Cap, 20 MG PO DAILY, (Reported) Sertraline Hcl (Zoloft) 100 Mg Tablet, 100 MG PO DAILY, (Reported) Scheduled PRN Ketoconazole (Ketoconazole) 15 Gm Cream..g., 1 DOSE EXT BID PRN for RASH, (Reported) Allergies Coded Allergies: Penicillins (Verified Allergy, Intermediate, HIVES, 05/24/20) ciprofloxacin (Verified Allergy, Intermediate, HIVES, 05/24/20) raspberry (Verified Allergy, Intermediate, HIVES, 05/24/20) Vani Conner MD Oct 27, 2020 16:31
--- NOTE | 2020-10-27 16:47 | IPN ---
PROGRESS NOTE DATE: 10/27/2020 HISTORY: Patient is now 2 days postoperative from a laparoscopic lysis of an omental band with release of a small-bowel obstruction. This was done on the evening of October 25. He did well yesterday and tolerated some sips of clear liquids in the morning and was advanced to a regular diet late on October 26. He was advised to take a diet as he was comfortable with it. He reports that he has been taking a diet well and had regular diet for breakfast this morning. Vital signs show that he has been afebrile. His pulse is in the 60s and low 70s, and his blood pressure is fine. Room air oxygen saturation is normal. Yesterday he had 900 recorded as intake with 300 mL of measured urine but seven voids noted. PHYSICAL EXAMINATION: Patient is sitting up in the bed looking quite comfortable. Heart exam shows regular rhythm. The lungs are clear. The abdomen appears somewhat distended. He has active bowel sounds, and the abdomen is soft throughout. His dressing are removed, and his incisions are clean and dry with Steri-Strips in place. Patient had labs this morning showing a white count of 6, hemoglobin of 11, hematocrit 34, and a platelet count of 194,000. Chemistry profile showed a sodium of 144, potassium 3.0, chloride 111, CO2 of 26, BUN 11, creatinine 0.69, and a glucose 110. IMPRESSION: The patient appears to be doing very well 2 days postoperative from his laparoscopic release of a small-bowel obstruction. He is somewhat distended today, but the abdomen is soft and nontender, and he has been passing gas and having bowel function. RECOMMENDATIONS: I would recommend that the patient be discharged today. He can take a diet as tolerated and pursue activity as tolerated as well. He can shower at any time. He should followup in my office in a week to 10 days for routine followup of his surgery. If he has any problems, he can contact my office.
== END 2020-10-27 11:46 | disposition home or self-care (01) | DRG 337 ==
LOC: M ED 04:34 → M ED INP 08:32 → ENRESERV 08:41 → M MSPAV 10:09
PROVIDERS: ADMIT Internal Medicine; ATTEND Internal Medicine
PROC: 0DNU4ZZ Release Omentum, Percutaneous Endoscopic Approach (ICD-10-PCS; 2020-10-25)
PROC: 0DN84ZZ Release Small Intestine, Percutaneous Endoscopic Approach (ICD-10-PCS; principal; 2020-10-25 14:08)
DX: K56.50 Intestinal adhesions [bands], unspecified as to partial versus complete obstruction (principal); I16.0 Hypertensive urgency; E87.6 Hypokalemia; I10 Essential (primary) hypertension; E78.5 Hyperlipidemia, unspecified; I25.10 Atherosclerotic heart disease of native coronary artery without angina pectoris; K21.9 Gastro-esophageal reflux disease without esophagitis; M51.36 Other intervertebral disc degeneration, lumbar region; K57.30 Diverticulosis of large intestine without perforation or abscess without bleeding; Z87.891 Personal history of nicotine dependence; F32.9 Major depressive disorder, single episode, unspecified; Z79.899 Other long term (current) drug therapy; Z79.82 Long term (current) use of aspirin; Z88.0 Allergy status to penicillin; Z91.018 Allergy to other foods; Z88.8 Allergy status to other drugs, medicaments and biological substances

== ENCOUNTER → 2022-10-25 | Outpatient (REF) | payer MEDICARE, OTHER, BC ==
[~2022-10-25] MED LIST changes: +ASPI-161 PO; +ATOR80TA59 PO; +ENAL1TAB48 PO; -ENAL5TA PO; +KETO2CR EXT; +ZOLO100T PO
[2022-10-25 13:30] LABS: FERRITIN 143.6 NG/ML (10.5-307.3)
[2022-10-25 13:31] LABS: FOLATE 10.6 NG/ML (>5.4)
== END ==
LOC: M LAB REF 11:55
PROVIDERS: ATTEND Family Medicine
DX: D64.9 Anemia, unspecified (principal)

== ENCOUNTER → 2022-11-27 | Outpatient (CLI) | payer MEDICARE, OTHER, BC | LOC: M RAD 08:03 | PROVIDERS: ATTEND Family Medicine | DX: I71.40 Abdominal aortic aneurysm, without rupture, unspecified (principal) ==

== ENCOUNTER → 2023-03-13 | Outpatient (REF) | payer MEDICARE, OTHER | LOC: M LAB REF 14:40 | PROVIDERS: ATTEND Family Medicine | DX: D64.9 Anemia, unspecified (principal) ==

== ENCOUNTER → 2024-05-19 | Outpatient (REF) | payer MEDICARE, BC, OTHER ==
[~2024-05-19] MED LIST changes: -ASPI-161 PO; +ASPI-615 PO
== END ==
LOC: M LAB REF 16:42
PROVIDERS: ATTEND Family Medicine
DX: E53.8 Deficiency of other specified B group vitamins (principal)